=== PATIENT | female | born 2000 | race African-American/Black ===

== ENCOUNTER 2020-07-16 23:08 | Emergency (ER) | payer OTHER ==
[2020-07-16 23:58] LABS: Absolute Lymphocytes (CBC) 0.6 K/uL (0.7-4.9); Basophils % 0.3 % (0-1.3); Lymphocytes % 5.5 % (15.3-44.8); MPV 9.4 fL (7.6-11.3)
[2020-07-17] MEDS ORDERED: NA CHLORIDE 0.9% 1,000 ML ONE (00:04)
[2020-07-17] MEDS ORDERED: LIDOCAINE VISCOUS 2% SOLN 15 ML UDC ONE (00:04)
[2020-07-17] MEDS ORDERED: ONDANSETRON 4 MG/2 ML VIAL ONE (00:04)
[2020-07-17] MEDS ORDERED: MAGNES/ALUMIN/SIMET 30ML UCUP ONE (00:04)
[2020-07-17 00:11] LABS: Albumin 4.3 g/dL (3.4-5.0); Bilirubin Direct 0.2 mg/dL (0-0.2); Bilirubin Total 0.9 mg/dL (0.2-1.0); Protein, Total 8.2 g/dL (6.4-8.2)
[2020-07-17 00:44] LABS: Blood Morphology Comment NOT SEEN (NOT SEEN); Platelet Estimate ADEQ
--- NOTE | 2020-07-17 04:21 | ER ---
Nurse's Notes [facility] Name: Neelima Nix Age: 19 yrs Sex: Female : 2000 Arrival Date: 07/16/2020 Time: 23:12 Bed 4 Private MD: Diagnosis: Generalized abdominal pain Presentation: 07/16 23:15 Chief complaint: Patient states: "I think I have alcohol poisoning, I'm breathing aj1 heavy, I've been throwing up since 1 in the morning, my stomach hurts, I'm shaking really bad" Patient reports that she drank last night and had her last drink at 0040. Coronavirus screen: Client denies travel out of the [place] in the last 14 days. Client presents with at least one sign or symptom that may indicate coronavirus-19. Standard/surgical mask placed on the client. Ebola Screen: Patient denies travel to an Ebola-affected area in the 21 days before illness onset. Initial Sepsis Screen: Does the patient meet any 2 criteria? RR > 20 per min. No. Patient's initial sepsis screen is negative. Does the patient have a suspected source of infection? Yes: Acute abdominal pain. Risk Assessment: Do you want to hurt yourself or someone else? Patient reports no desire to harm self or others. Onset of symptoms was July 16, 2020. 23:15 Method Of Arrival: Ambulatory aj 23:15 Acuity: MACI 3 aj1 Triage Assessment: 23:18 General: Appears in no apparent distress. uncomfortable, Behavior is cooperative, aj1 anxious. Pain: Complains of pain in abdomen. Neuro: Level of Consciousness is awake, alert, obeys commands. Cardiovascular: Patient's skin is warm and dry. Respiratory: Airway is patent Respiratory effort is even, unlabored, Respiratory pattern is regular, symmetrical, tachypnea. GI: Reports nausea, vomiting. 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 - Social history:: Smoking status: Patient denies any tobacco usage or history of. - Family history:: not pertinent. Screenin/02 00:00 Abuse screen: Denies threats or abuse. Denies injuries from another. Nutritional wh screening: No deficits noted. Tuberculosis screening: No symptoms or risk factors identified. Fall Risk None identified. Assessment: 07/16 23:25 General: Appears in no apparent distress. Behavior is calm, cooperative, appropriate wh for age. Pain: Complains of pain in epigastric area. Neuro: Level of Consciousness is awake, alert, obeys commands, Oriented to person, place, time, situation, Appropriate for age. Cardiovascular: Heart tones S1 S2. Respiratory: Airway is patent Respiratory effort is even, unlabored, Respiratory pattern is regular, symmetrical, Breath sounds are clear bilaterally. GI: Abdomen is flat, non-distended, Abd is soft and non tender X 4 quads. Reports upper abdominal pain, nausea. : No signs and/or symptoms were reported regarding the genitourinary system. EENT: No signs and/or symptoms were reported regarding the EENT system. Derm: Skin is intact, is healthy with good turgor, Skin is pink, warm \\T\\ dry. normal. Musculoskeletal: Circulation, motion, and sensation intact. 07/17 01:12 Reassessment: Patient denies pain at this time. Patient states feeling better. Patient mg2 states symptoms have improved. Vital Signs: 07/16 23:15 BP 124 / 65; Pulse 78; Resp 22; Temp 97.8; Pulse Ox 100% on R/A; Weight 58.06 kg (R); aj1 Height 5 ft. 6 in. (167.64 cm) (R); Pain 10/10; 07/17 01:11 BP 122 / 80; Pulse 80; Resp 18; Temp 98; Pulse Ox 100% on R/A; Pain 0/10; mg2 07/16 23:15 Body Mass Index 20.66 (58.06 kg, 167.64 cm) aj1 ED Course: 07/16 23:12 Patient arrived in ED. cf2 23:18 Triage completed. aj1 23:18 Arm band placed on Patient placed in an exam room. aj1 23:20 Sharon Link is Primary Nurse. 23:26 Fam Jaramillo MD is Attending Physician. ma2 23:45 Inserted saline lock: 20 gauge in left antecubital area, using aseptic technique. Blood wh collected. 12/02 00:00 Patient has correct armband on for positive identification. Bed in low position. Call light in reach. Side rails up X 1. Pulse ox on. NIBP on. 01:11 No provider procedures requiring assistance completed. IV discontinued, intact, mg2 bleeding controlled, No redness/swelling at site. Pressure dressing applied. Administered Medications: 00:00 Drug: GI Cocktail without - (Maalox Suspension 30 ml, Lidocaine Liquid 2 % 15 wh ml) Route: PO; 01:12 Follow up: Response: No adverse reaction; Marked relief of symptoms mg2 00:02 Drug: NS 0.9% 1000 ml Route: IV; Rate: 1 bolus; Site: left antecubital; 01:12 Follow up: Response: No adverse reaction; IV Status: Completed infusion; IV Intake: mg2 1000ml 00:04 Drug: Zofran (Ondansetron) 4 mg Route: IVP; Site: left antecubital; 01:12 Follow up: Response: No adverse reaction; Marked relief of symptoms mg2 00:08 Not Given (Physician Discretion): Valium 5 mg IVP once Intake: 01:12 IV: 1000ml; Total: 1000ml. mg2 Outcome: 00:59 Discharge ordered by . [email or web address] 01:12 Discharged to home ambulatory, with family. mg2 01:12 Condition: stable 01:12 Discharge instructions given to patient, family, Instructed on discharge instructions, follow up and referral plans. medication usage, Demonstrated understanding of instructions, follow-up care, medications, Prescriptions given X 1. 01:12 Patient left the ED. mg2 Signatures: Debra Johnson, ISABEL RN mina1 Sharon Link Fam Jaramillo MD MD ma2 Dinesh Lord RN RN [facility] [place] Sarah Beth Cohn2
--- NOTE | 2020-07-17 04:21 | EDPHYS ---
Physician Documentation [facility] Name: Neelima Nix Age: 19 yrs Sex: Female : 2000 Arrival Date: 07/16/2020 Time: 23:12 Bed 4 Private MD: ED Physician Fam Jaramillo HPI: 07/17 00:58 This 19 yrs old Female presents to ER via Ambulatory with complaints of Vomiting, ma2 Abdominal Pain, Breathing Difficulty, SHAKING. 00:58 The patient presents to the emergency department with nausea, vomiting. Associated ma2 signs and symptoms: Pertinent negatives: anorexia, diarrhea, fever, flatulence. Severity of symptoms: At their worst the symptoms were mild in the emergency department the symptoms are unchanged. The patient has not experienced similar symptoms in the past. 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 - Social history:: Smoking status: Patient denies any tobacco usage or history of. - Family history:: not pertinent. ROS: 07/17 00:58 Constitutional: Negative for fever, chills, and weight loss. ma2 All other systems are negative. Exam: 00:58 Constitutional: This is a well developed, well nourished patient who is awake, alert, ma2 and in no acute distress. Chest/axilla: Normal chest wall appearance and motion. Nontender with no deformity. No lesions are appreciated. Cardiovascular: Regular rate and rhythm with a normal S1 and S2. No gallops, murmurs, or rubs. Normal PMI, no JVD. No pulse deficits. Respiratory: Lungs have equal breath sounds bilaterally, clear to auscultation and percussion. No rales, rhonchi or wheezes noted. No increased work of breathing, no retractions or nasal flaring. Abdomen/GI: Soft, non-tender, with normal bowel sounds. No distension or tympany. No guarding or rebound. No evidence of tenderness throughout. Vital Signs: 07/16 23:15 BP 124 / 65; Pulse 78; Resp 22; Temp 97.8; Pulse Ox 100% on R/A; Weight 58.06 kg (R); aj1 Height 5 ft. 6 in. (167.64 cm) (R); Pain 10/10; 07/17 01:11 BP 122 / 80; Pulse 80; Resp 18; Temp 98; Pulse Ox 100% on R/A; Pain 0/10; mg2 07/16 23:15 Body Mass Index 20.66 (58.06 kg, 167.64 cm) aj1 MDM: 07/16 23:26 Patient medically screened. ma2 07/17 00:58 Differential diagnosis: gastritis, pancreatitis, viral gastroenteritis, ma2 gastroenteritis. Data reviewed: vital signs, nurses notes. Counseling: I had a detailed discussion with the patient and/or guardian regarding: the historical points, exam findings, and any diagnostic results supporting the discharge/admit diagnosis, the presence of at least one elevated blood pressure reading (>120/80) during this emergency department visit, the need for outpatient follow up. 07/16 23:33 Order name: IV Saline Lock; Complete Time: 00:09 ma2 07/16 23:33 Order name: Labs collected and sent; Complete Time: 00:09 ak2 Administered Medications: 00:00 Drug: GI Cocktail without - (Maalox Suspension 30 ml, Lidocaine Liquid 2 % 15 wh ml) Route: PO; 01:12 Follow up: Response: No adverse reaction; Marked relief of symptoms mg2 00:02 Drug: NS 0.9% 1000 ml Route: IV; Rate: 1 bolus; Site: left antecubital; 01:12 Follow up: Response: No adverse reaction; IV Status: Completed infusion; IV Intake: mg2 1000ml 00:04 Drug: Zofran (Ondansetron) 4 mg Route: IVP; Site: left antecubital; 01:12 Follow up: Response: No adverse reaction; Marked relief of symptoms mg2 00:08 Not Given (Physician Discretion): Valium 5 mg IVP once Disposition: 07/17/20 00:59 Discharged to Home. Impression: Generalized abdominal pain. - Condition is Stable. - Discharge Instructions: Abdominal Pain, Adult. - Prescriptions for Zofran 4 mg Oral Tablet - take 1 tablet by ORAL route every 12 hours As needed; 20 tablet. - Medication Reconciliation Form, Thank You Letter, Antibiotic Education, Prescription Opioid Use form. - Follow up: Private Physician; When: Tomorrow; Reason: Continuance of care. Signatures: Debra Johnson RN RN aj1 Sharon Link Mohammad, MD MD ma2 Dniesh Lord RN RN mg2 Corrections: (The following items were deleted from the chart) 01:12 00:59 07/17/2020 00:59 Discharged to Home. Impression: Generalized abdominal pain. mg2 Condition is Stable. Forms are Medication Reconciliation Form, Thank You Letter, Antibiotic Education, Prescription Opioid Use. Follow up: Private Physician; When: Tomorrow; Reason: Continuance of care. ma2
== END 2020-07-17 01:12 | disposition home or self-care (01) ==
LOC: ER 23:08
DX: R10.84 Generalized abdominal pain (principal)
CPT/HCPCS: 36415; 80048; 80076; 83690; 85025; 96361; 96374; 99284

== ENCOUNTER 2022-01-19 08:01 | Emergency (ER) | payer BC, OTHER ==
[2022-01-19 08:32] LABS: Urine Blood Negative (Negative); Urine Glucose Negative (Negative); Urine Protein 1+ (Negative); Urine Specific Gravity 1.015 (1.005-1.030); Urine pH >=9.0 (5.0-7.0)
--- OUTSIDE RECORDS SUMMARY | 2022-01-19 08:32 | XMS REPORT | Continuity of Care Document ---
:2000 Author Organization [facility] t Address [address] [place] [address] Care Team Providers Name Role Phone FELIPE Primary Care Physician Unavailable FELIPE Attending Clinician Unavailable Felipe JAMES Attending Clinician Jet Dillard MD Attending Clinician Doctor Unassigned, Name Attending Clinician Unavailable Only, Test Attending Clinician Unavailable Pob, Lab Main Attending Clinician Unavailable FELIPE Admitting Clinician Unavailable Felipe JAMES Admitting Clinician Payers Payer Name Policy Type Policy Number Effective Date Expiration Date S ource [facility] - [id number] 2020 OUT OF STATE 00:00:00 [facility] [id number] 2021 [facility] MEDICAID 00:00:00 [facility] [id number] 2021 HEALTH 00:00:00 [place]ID [place] [id number] 2020 00:00:00 [employer]ET[employer] O [id number] 2019 00:00:00 Problems Condition Condition Condition Status Onset Resolution Last Treating Co mments Source Name Details Category Date Date Treatment Clinician Date Disease Active 2020-08 U nivers care and care and 2- it[place] examin[place] Medical immediatel immediatel Br anch y after y after delivery delivery Liveborn, Liveborn, Disease Active 2020-08 Uni vers born in born in 09-22 ity of [facility] 00:00: [address] Branch Encounter Encounter Disease Active 2020-08 Uni vers for for 2-06 ity of elective elective 00:00: [place] induction induction 00 Medi adalberto of labor of labor Branch Dry skin Dry skin Disease Active Unive rs 9-08 ity of 00:00: [address] Supervisio Supervisio Disease Active U nivers n of high n of high 8-10 ity of risk risk 00:00: [place] 00 Medi adalberto in third in third Branch trimester trimester Screening Screening Disease Active Uni vers for for 6-17 ity of genetic genetic 00:00: [place] disease disease 00 Medical carrier carrier Branch status status Underweigh Underweigh Disease Active U nivers t t 5-23 ity of 00:00: [address] Chlamydia Chlamydia Disease Active Uni vers trachomati trachomati 4-30 it y of s s 00:00: [place] infection infection 00 Medi adalberto of lower of lower Branch genitourin genitourin ruslan sites ruslan sites Missed Missed Disease Active Univers menses menses 4-12 ity of 00:00: [address] Allergies, Adverse Reactions, Alerts Allergy Allergy Status Severity Reaction(s) Onset Inactive Treating Comm ents Source Name Type Date Date Clinician NO KNOWN Drug Active Univers ALLERGIE Class ity of [facility] Social History Social Habit Start Date Stop Date Quantity Comments Source ASSERTION 2020-11-01 University 00:00:00 [facility] Exposure to Not sure [facility] SARS-CoV-2 [facility] (event) [place] Alcohol intake 2021-09-23 2021-09-23 Ex-drinker [facility] 00:00:00 00:00:00 (finding) [facility] Tobacco use and 2020-11-25 2020-11-25 Never used Universit y of exposure 00:00:00 00:00:00 [facility] Sex Assigned At 2000 2000 Universit y of 00:00:00 00:00:00 [facility] Smoking Status Start Date Stop Date Source Never smoker [facility] Medications Ordered Filled Start Stop Current Ordering Indication Dosage Frequency Signature Comments Components Source Medication Medication Date Date Medication? Clinician (SIG) Name Name miSOPROStoL 2021- No [id number] 200ug Take 1 Univers 200 mcg 2-08 02-10 tablet by ity of tablet 00:00: 05:59 mouth 2 [place] 00 :00 (two) Medical times Branch daily for 1 day. Take the night before and the morning of the procedure. COVID-19 2021- No TEST Unive rs test 08-29 DIRECTED ity of specimen 00:00: 00:00 TODAY [place] collect 00 :00 Medical Misc Branch ID NOW 2021- No TEST Univers COVID-19 08-22 DIRECTED ity of TEST KIT 00:00: 00:00 TODAY [place] Kit 00 :00 Medical Branch PNV 67-iron 2020-08 Yes [id number] 1{capsu Take 1 Univers ps-folate 2-08 le} capsule by ity of no.1-dha 00:00: mouth [place] (VITAFOL 00 daily. Medical ULTRA) 29 Branch mg iron- 1 mg-200 mg Cap docusate 2020-08 Yes [id number] 240mg Take 1 Univers calcium 240 2-08 102 capsule by it y of mg capsule 00:00: mouth [place] 00 daily as Medical needed for Branch Constipati on. ferrous 2020-08 Yes [id number] 325mg Take 1 Univers sulfate 325 2-08 102 tablet by ity of mg (65 mg 00:00: mouth [place] iron) 00 daily. Medical tablet Branch ibuprofen 2020-08 Yes [id number] 600mg Take 1 Univers 600 mg 2-08 102 tablet by ity of tablet 00:00: mouth [place] 00 every 6 Medical (six) Branch hours as needed (Pain). Take with food or milk. PNV 67-iron 2020-08 Yes [id number] 1{capsu Take 1 Univers ps-folate 2-08 le} capsule by ity of no.1-dha 00:00: mouth [place] (VITAFOL 00 daily. Medical ULTRA) 29 Branch mg iron- 1 mg-200 mg Cap docusate 2020-08 Yes [id number] 240mg Take 1 Univers calcium 240 2-08 102 capsule by it y of mg capsule 00:00: mouth once [place] 00 daily as Medical needed for Branch Constipati on. ferrous 2020-08 Yes [id number] 325mg Take 1 Univers sulfate 325 2-08 102 tablet by ity of mg (65 mg 00:00: mouth [place] iron) 00 daily. Medical tablet Branch ibuprofen 2020-08 Yes [id number] 600mg Take 1 Univers 600 mg 2-08 102 tablet by ity of tablet 00:00: mouth [place] 00 every 6 Medical (six) Branch hours as needed (Pain). Take with food or milk. PNV 67-iron 2020-08 Yes [id number] 1{capsu Take 1 Univers ps-folate 2-08 le} capsule by ity of no.1-dha 00:00: mouth [place] (VITAFOL 00 daily. Medical ULTRA) 29 Branch mg iron- 1 mg-200 mg Cap docusate 2020-08 Yes [id number] 240mg Take 1 Univers calcium 240 2-08 102 capsule by it y of mg capsule 00:00: mouth once [place] 00 daily as Medical needed for Branch Constipati on. ferrous 2020-08 Yes [id number] 325mg Take 1 Univers sulfate 325 2-08 102 tablet by ity of mg (65 mg 00:00: mouth [place] iron) 00 daily. Medical tablet Branch ibuprofen 2020-08 Yes [id number] 600mg Take 1 Univers 600 mg 2-08 102 tablet by ity of tablet 00:00: mouth [place] 00 every 6 Medical (six) Branch hours as needed (Pain). Take with food or milk. PNV 67-iron 2020-08 Yes [id number] 1{capsu Take 1 Univers ps-folate 2-08 le} capsule by ity of no.1-dha 00:00: mouth [place] (VITAFOL 00 daily. Medical ULTRA) 29 Branch mg iron- 1 mg-200 mg Cap docusate 2020-08 Yes [id number] 240mg Take 1 Univers calcium 240 2-08 102 capsule by it y of mg capsule 00:00: mouth once [place] 00 daily as Medical needed for Branch Constipati on. ferrous 2020-08 Yes [id number] 325mg Take 1 Univers sulfate 325 2-08 102 tablet by ity of mg (65 mg 00:00: mouth [place] iron) 00 daily. Medical tablet Branch ibuprofen 2020-08 Yes [id number] 600mg Take 1 Univers 600 mg 2-08 102 tablet by ity of tablet 00:00: mouth [place] 00 every 6 Medical (six) Branch hours as needed (Pain). Take with food or milk. PNV 67-iron 2020-08 Yes [id number] 1{capsu Take 1 Univers ps-folate 2- le} capsule by ity of no.1-dha 00:00: mouth [place] (VITAFOL 00 daily. Medical ULTRA) 29 Branch mg iron- 1 mg-200 mg Cap ibuprofen 2020-08 Yes [id number] 600mg Take 1 Univers 600 mg 2-08 102 tablet by ity of tablet 00:00: mouth [place] 00 every 6 Medical (six) Branch hours as needed (Pain). Take with food or milk. docusate 2020-08- No [id number] 240mg Take 1 Univers calcium 240 09-23 102 capsule by i ty of mg capsule 00:00: 00:00 mouth once [place] 00 :00 daily as Medical needed for Branch Constipati on. ferrous 2020-08- No [id number] 325mg Take 1 Univers sulfate 325 09-23 102 tablet by it y of mg (65 mg 00:00: 00:00 mouth [place] iron) 00 :00 daily. Medical tablet Branch rho(D) 2020-08 Yes 300ug 300 mcg, Univer s immune 2-07 Intramuscu ity of globulin 09:37: lar, ONCE, Ayaz as (RHOGAM) 03 For 1 Medical syringe 300 dose, Branch mcg Conditiona l, Routine HYDROcodone 2020-08 Yes 1{tbl} 1 tablet, Univers -acetaminop 2-07 Oral, ity of hen (NORCO 09:36: Q6HPRN, [place] 5) 5-325 mg 15 Starting Medi adalberto tablet 1 on Wed [place] tablet 07/22/21 at 0336, Until Discontinu ed, Routine, Pain (scale 7-10) ibuprofen 2020-08 Yes 600mg 600 mg, Univ ers (IBU) 2-07 Oral, ity of tablet 600 09:36: Q6HPRN, [place] mg 15 Starting Medical on Wed Branch 07/22/21 at 0336, Until Discontinu ed, Routine, Pain (scale 4-6) acetaminoph 2020-08 Yes 650mg 650 mg, Un tarah en 2-07 Oral, ity of (TYLENOL) 09:36: Q6HPRN, [place] tablet 650 15 Starting Medic al mg on Wed Branch 07/22/21 at 0336, Until Discontinu ed, Routine, Pain (scale 1-3) diphenhydrA 2020-08 Yes 25mg 25 mg, Univ ers MINE 2-07 Oral, ity of (BENADRYL) 09:36: Q6HPRN, [place] tablet 25 15 Starting Medica l mg on Wed Branch 07/22/21 at 0336, Until Discontinu ed, Routine, Sleep, Itching ondansetron 2020-08 Yes 4mg 4 mg, Slow Univers (ZOFRAN 2-07 IV Push, ity of (PF)) 09:36: Q8HPRN, [place] injection 4 15 Starting Medi adalberto mg on Wed Branch 07/22/21 at 0336, Until Discontinu ed, Routine, Nausea and Vomiting (N/V) simethicone 2020-08 Yes 160mg 160 mg, Un [place] (GAS RELIEF 2-07 Oral, ity of (SIMETHICON 09:36: PC+HSPRN, [place] E)) 15 Starting Medical chewable on Wed tablet 160 07/22/21 at mg 0336, Until Discontinu ed, Routine, Gas docusate 2020-08 Yes 240mg 240 mg, Unive rs calcium 2-07 Oral, ity of (SURFAK) 09:36: QDAILYPRN, [place] as capsule 240 15 Starting Medi adalberto mg on Wed07/22/21 at 0336, Until Discontinu ed, Routine, Constipati on magnesium 2020-08 Yes 30mL 30 mL, Univer s hydroxide 2-07 Oral, ity of (MILK OF 09:36: QDAILYPRN, [place] as MAGNESIA) 15 Starting Medica l 400 mg/5 mL on Wed suspension 07/22/21 at 30 mL 0336, Until Discontinu ed, Routine, Constipati on benzocaine- 2020-08 Yes Topical, [place] menthol 2-07 PRN, ity of (DERMOPLAST 09:36: [place] 20-0.5 % 14 on Wed Medical topical 07/22/21 at Branch spray 0336, Until Discontinu ed, Routine, Perineum discomfort FENTanyl 2 2020-08- No Intra-op Un tarah mcg/mL + 2-07 12-07 ity of bupivacaine 06:14: 13:14 [place] 0.125% in 00 :24 Medical NS 250 mL Branch epidural bag FENTanyl 2 2020-08- No Intra-op [place] tar[place] mcg/mL + 09-22 ity of bupivacaine 06:02: 13:14 [place] 0.125% in 00 :24 Medical NS 250 mL Branch epidural bag lidocaine-e 2020-08- No Intraderma Univers pinephrine 09-22 l, ONCE ity o f (XYLOCAINE 05:58: 13:14 INTRA [place] W/EPINEPHRI 00 :24 PROCEDURE, [place]) 1.5 Starting Branch %-1:200,000 on Wed injection 07/21/21 at 2358, Until Wed07/22/21 at 0714, Routine, Intra-op FENTanyl PF 2020-08- No 100ug 100 mcg, Univers (SUBLIMAZE 09-22 Slow IV ity o f (PF)) 00:19: 09:37 Push, [place] injection 02 :04 Q1HPRN, 3 Medic al 100 mcg doses, Branch Starting on Wed07/21/21 at 1819, Until Wed07/22/21 at 0337, Routine, Pain (scale 7-10) LR 1000 mL 2020-08- No 2mU/min at 6-120 Univers + oxytocin 09-22 mL/hr, IV ity of 20 units IV 00:10: 09:37 Infusion, [place] Solution 44 :04 TITRATE, Medical Starting Branch on Wed07/21/21 at 1810, Until Wed07/22/21 at 0337, IVY D5W-LR IV 2020-08- No 1000mL at 125 Uni vers infusion 09-2107 mL/hr, IV ity o f 1,000 mL 23:30: 09:37 Infusion, Ayaz as 00 :04 CONTINUOUS Medical , Starting Branch on Wed07/21/21 at 1730, Until Wed07/22/21 at 0337, Routine lactated 2020-08- No 500mL at 999 Unive rs ringers IV 09-21-07 mL/hr, 500 it y of infusion 23:22: 09:37 mL, IV [place] 500 mL 17 :04 Infusion, Medical PRN - SEE Branch INSTRUCTIO NS, Starting on Wed07/21/21 at 1722, Until Wed21 at 0337, Routine PNV 67-iron 2020-08 Yes [id number] 1{capsu Take 1 Univers ps-folate 0-06 le} capsule by ity of no.1-dha 00:00: mouth [place] (VITAFOL 00 daily. Medical ULTRA) 29 Branch mg iron- 1 mg-200 mg Cap PNV 67-iron 2020-08 Yes [id number] 1{capsu Take 1 Univers ps-folate 0-06 le} capsule by ity of no.1-dha 00:00: mouth [place] (VITAFOL 00 daily. Medical ULTRA) 29 Branch mg iron- 1 mg-200 mg Cap PNV 67-iron 2020-08 Yes [id number] 1{capsu Take 1 Univers ps-folate 0-06 le} capsule by ity of no.1-dha 00:00: mouth [place] (VITAFOL 00 daily. Medical ULTRA) 29 Branch mg iron- 1 mg-200 mg Cap PNV 67-iron 2020-08 Yes [id number] 1{capsu Take 1 Univers ps-folate 0-06 le} capsule by ity of no.1-dha 00:00: mouth [place] (VITAFOL 00 daily. Medical ULTRA) 29 Branch mg iron- 1 mg-200 mg Cap PNV 67-iron 2020-08 Yes [id number] 1{capsu Take 1 Univers ps-folate 0-06 le} capsule by ity of no.1-dha 00:00: mouth [place] (VITAFOL 00 daily. Medical ULTRA) 29 Branch mg iron- 1 mg-200 mg Cap PNV 67-iron 2020-08 Yes [id number] 1{capsu Take 1 Univers ps-folate 0-06 le} capsule by ity of no.1-dha 00:00: mouth [place] (VITAFOL 00 daily. Medical ULTRA) 29 Branch mg iron- 1 mg-200 mg Cap PNV 67-iron 2020-08 Yes [id number] 1{capsu Take 1 Univers ps-folate 0-06 le} capsule by ity of no.1-dha 00:00: mouth [place] (VITAFOL 00 daily. Medical ULTRA) 29 Branch mg iron- 1 mg-200 mg Cap PNV 67-iron 2020-08 Yes [id number] 1{capsu Take 1 Univers ps-folate 0-06 le} capsule by ity of no.1-dha 00:00: mouth [place] (VITAFOL 00 daily. Medical ULTRA) 29 Branch mg iron- 1 mg-200 mg Cap PNV 67-iron 2020-08 Yes [id number] 1{capsu Take 1 Univers ps-folate 0-06 le} capsule by ity of no.1-dha 00:00: mouth [place] (VITAFOL 00 daily. Medical ULTRA) 29 Branch mg iron- 1 mg-200 mg Cap PNV 67-iron 2020-08 Yes [id number] 1{capsu Take 1 Univers ps-folate 0-06 le} capsule by ity of no.1-dha 00:00: mouth [place] (VITAFOL 00 daily. Medical ULTRA) 29 Branch mg iron- 1 mg-200 mg Cap PNV 67-iron 2020-08 Yes [id number] 1{capsu Take 1 Univers ps-folate 0-06 le} capsule by ity of no.1-dha 00:00: mouth [place] (VITAFOL 00 daily. Medical ULTRA) 29 Branch mg iron- 1 mg-200 mg Cap PNV 67-iron 2020-08 Yes [id number] 1{capsu Take 1 Univers ps-folate 0-06 le} capsule by ity of no.1-dha 00:00: mouth [place] (VITAFOL 00 daily. Medical ULTRA) 29 Branch mg iron- 1 mg-200 mg Cap PNV 67-iron 2020-08 Yes [id number] 1{capsu Take 1 Univers ps-folate 0-06 le} capsule by ity of no.1-dha 00:00: mouth [place] (VITAFOL 00 daily. Medical ULTRA) 29 Branch mg iron- 1 mg-200 mg Cap PNV 67-iron 2020-08 Yes [id number] 1{capsu Take 1 Univers ps-folate 0-06 le} capsule by ity of no.1-dha 00:00: mouth [place] (VITAFOL 00 daily. Medical ULTRA) 29 Branch mg iron- 1 mg-200 mg Cap PNV 67-iron 2020-08 Yes [id number] 1{capsu Take 1 Univers ps-folate 0-06 le} capsule by ity of no.1-dha 00:00: mouth [place] (VITAFOL 00 daily. Medical ULTRA) 29 Branch mg iron- 1 mg-200 mg Cap PNV 67-iron 2020-08 202- No [id number] 1{capsu Take 1 Univers ps-folate 0-06 12-08 le} capsule by ity of no.1-dha 00:00: 00:00 mouth [place] (VITAFOL 00 :00 daily. Medical ULTRA) 29 Branch mg iron- 1 mg-200 mg Cap lanolin Yes [id number] 1{appli Apply 1 Univers % Crea 9-07 cator} Applicator ity o f 00:00: to area(s) [place] 00 2 (two) Medical times Branch daily. lanolin Yes [id number] 1{appli Apply 1 Univers % Crea 9-07 cator} Applicator ity o f 00:00: to area(s) [place] 00 2 (two) Medical times Branch daily. lanolin Yes [id number] 1{appli Apply 1 Univers % Crea 9-07 cator} Applicator ity o f 00:00: to area(s) [place] 00 2 (two) Medical times Branch daily. lanolin Yes [id number] 1{appli Apply 1 Univers % Crea 9-07 cator} Applicator ity o f 00:00: to area(s) [place] 00 2 (two) Medical times Branch daily. VITAFOL Yes 1{capsu Take 1 Unive rs ULTRA 29 mg 9-07 le} capsule by it y of iron- 1 00:00: mouth [place] mg-200 mg 00 daily. Medical Cap Branch lanolin Yes [id number] 1{appli Apply 1 Univers % Crea 9-07 cator} Applicator ity o f 00:00: to area(s) [place] 00 2 (two) Medical times Branch daily. VITAFOL Yes 1{capsu Take 1 Unive rs ULTRA 29 mg 9-07 le} capsule by it y of iron- 1 00:00: mouth [place] mg-200 mg 00 daily. Medical Cap Branch lanolin Yes [id number] 1{appli Apply 1 Univers % Crea 9-07 cator} Applicator ity o f 00:00: to area(s) [place] 00 2 (two) Medical times Branch daily. lanolin Yes [id number] 1{appli Apply 1 Univers % Crea 9-07 cator} Applicator ity o f 00:00: to area(s) [place] 00 2 (two) Medical times Branch daily. lanolin Yes [id number] 1{appli Apply 1 Univers % Crea 9-07 cator} Applicator ity o f 00:00: to area(s) [place] 00 2 (two) Medical times Branch daily. lanolin Yes [id number] 1{appli Apply 1 Univers % Crea 9-07 cator} Applicator ity o f 00:00: to area(s) [place] 00 2 (two) Medical times Branch daily. lanolin Yes [id number] 1{appli Apply 1 Univers % Crea 9-07 cator} Applicator ity o f 00:00: to area(s) [place] 00 2 (two) Medical times Branch daily. lanolin 2020- No [id number] 1{appli Apply 1 Univers % Crea 9-07 11-18 cator} Applicator ity of 00:00: 00:00 to area(s) [place] 00 :00 2 (two) Medical times Branch daily. VITAFOL 2020- No 1{capsu Take 1 Univ ers ULTRA 29 mg 9-07 10-06 le} capsule by i ty of iron- 1 00:00: 00:00 mouth [place] mg-200 mg 00 :00 daily. Medical Cap Branch Yes [id number] 1{capsu Take 1 Univers 26-iron 8-10 le} capsule by ity of ps-folic-dh 00:00: mouth [place] a 00 daily. Medical (VITAFOL-ON Branch E) 29 mg iron- 1 mg-200 mg per capsule Yes [id number] 1{capsu Take 1 Univers 26-iron 8-10 le} capsule by ity of ps-folic-dh 00:00: mouth [place] a 00 daily. Medical (VITAFOL-ON Branch E) 29 mg iron- 1 mg-200 mg per capsule Yes [id number] 1{capsu Take 1 Univers 26-iron 8-10 le} capsule by ity of ps-folic-dh 00:00: mouth [place] a 00 daily. Medical (VITAFOL-ON Branch E) 29 mg iron- 1 mg-200 mg per capsule 2020- No [id number] 1{capsu Take 1 Univers 26-iron 03-25 le} capsule by sanjeev simpson ps-folic-dh 00:00: 00:00 [place] a 00 :00 daily. Medical (VITAFOL-ON Branch E) 29 mg iron- 1 mg-200 mg per capsule VITAFOL 2020- No 1{capsu Take 1 Univ ers ULTRA 29 mg 03-25 le} capsule by aleksandra ty of iron- 1 00:00: 00:00 mouth [place] mg-200 mg 00 :00 daily. Medical [facility] Branch Immunizations Ordered Filled Immunization Date Status Comments [facility] e Immunization Name Name TD 2021-05-19 Completed University of 00:00:00 [facility] TDAP 2021-05-19 Completed University of 00:00:00 [facility] TDAP 2021-05-19 Completed University of 00:00:00 [facility] Branch TDAP 2021-05-19 Completed University of 00:00:00 [facility] Branch TDAP 2021-05-19 Completed University of 00:00:00 [place] [facility] TDAP 2021-05-19 Completed University of 00:00:00 [facility] Branch TDAP 2021-05-19 Completed University of 00:00:00 [facility] Branch TDAP 2021-05-19 Completed University of 00:00:00 [facility] Branch TDAP 2021-05-19 Completed University of 00:00:00 [place] [facility] TDAP 2021-05-19 Completed University of 00:00:00 [place] [facility] TDAP 2021-05-19 Completed University of 00:00:00 [facility] Branch TDAP 2021-05-19 Completed University of 00:00:00 [place] [facility] TDAP 2021-05-19 Completed University of 00:00:00 [place] [facility] TDAP 2021-05-19 Completed University of 00:00:00 [facility] Branch TDAP 2021-05-19 Completed University of 00:00:00 [facility] Branch TDAP 2021-05-19 Completed University of 00:00:00 [place] [facility] TDAP 2021-05-19 Completed University of 00:00:00 [facility] TDAP 2021-05-19 Completed University of 00:00:00 [place] [facility] TDAP 2021-05-19 Completed University of 00:00:00 [place] [facility] TDAP 2021-05-19 Completed University of 00:00:00 [place] [facility] TDAP 2021-05-19 Completed University of 00:00:00 [facility] Branch Vital Signs Vital Name Observation Time Observation Value Comments Source Systolic blood 2021-09-23 14:23:00 125 mm[Hg] Univer sity of pressure [place] [facility] Diastolic blood 2021-09-23 14:23:00 76 mm[Hg] Unive rsity of pressure [place] [facility] Heart rate 2021-09-23 14:23:00 67 /min Universi ty of [place] [facility] Body temperature 2021-09-23 14:23:00 36.89 Frieda Univ ersity of [place] [facility] Respiratory rate 2021-09-23 14:23:00 18 /min Univ ersity of [place] [facility] Body height 2021-09-23 14:23:00 167.6 cm Universi ty of [place] [facility] Body weight 2021-09-23 14:23:00 77.14 kg Universi ty of [place] [facility] BMI 2021-09-23 14:23:00 27.45 kg/m2 Universi ty of [place] [facility] Systolic blood 2021-08-04 19:59:00 113 mm[Hg] Univer sity of pressure [place] [facility] Diastolic blood 2021-08-04 19:59:00 77 mm[Hg] Unive rsity of pressure [place] [facility] Heart rate 2021-08-04 19:59:00 90 /min Universi ty of [place] [facility] Body temperature 2021-08-04 19:59:00 37.11 Frieda Univ ersity of [place] [facility] Respiratory rate 2021-08-04 19:59:00 18 /min Univ ersity of [place] [facility] Body height 2021-08-04 19:59:00 167.6 cm Universi ty of [place] [facility] Body weight 2021-08-04 19:59:00 76.386 kg Universi ty of [place] [facility] BMI 2021-08-04 19:59:00 27.18 kg/m2 Universi ty of [place] [facility] Systolic blood 2021-07-23 19:15:00 121 mm[Hg] Univer sity of pressure [place] [facility] Diastolic blood 2021-07-23 19:15:00 75 mm[Hg] Unive rsity of pressure [place] [facility] Heart rate 2021-07-23 19:15:00 106 /min Universi ty [facility] [place] [facility] Body temperature 2021-07-23 19:15:00 37.11 Frieda Univ ersity of [facility] Branch Respiratory rate 2021-07-23 19:15:00 20 /min Univ ersity of [facility] Oxygen saturation in 2021-07-23 13:45:00 99 /min University of Arterial blood by [facility] Pulse oximetry Branch Body height 2021-07-21 23:35:00 167.6 cm Universi ty of [place] [facility] Body weight 2021-07-21 23:35:00 84.823 kg Universi ty of [place] [facility] BMI 2021-07-21 23:35:00 30.18 kg/m2 Universi ty of [facility] Systolic blood 2021-07-17 21:30:00 132 mm[Hg] Univer sity of pressure [place] [facility] Diastolic blood 2021-07-17 21:30:00 81 mm[Hg] Unive rsity of pressure [place] [facility] Heart rate 2021-07-17 21:30:00 78 /min Universi ty of [place] [facility] Body temperature 2021-07-17 21:30:00 37.28 Frieda Univ ersity of [place] [facility] Respiratory rate 2021-07-17 21:30:00 18 /min Univ ersity of [facility] Body height 2021-07-17 21:30:00 167.6 cm Universi ty [facility] [place] [facility] Body weight 2021-07-17 21:30:00 85.872 kg Universi ty of [place] [facility] BMI 2021-07-17 21:30:00 30.56 kg/m2 Universi ty of [place] [facility] Systolic blood 2021-07-08 21:59:00 112 mm[Hg] Univer sity of pressure [place] [facility] Diastolic blood 2021-07-08 21:59:00 69 mm[Hg] Unive rsity of pressure [place] [facility] Heart rate 2021-07-08 21:59:00 68 /min Universi ty of [place] [facility] Body temperature 2021-07-08 21:59:00 36.94 Frieda Univ ersity of [place] [facility] Respiratory rate 2021-07-08 21:59:00 18 /min Univ ersity of [place] [facility] Body height 2021-07-08 21:59:00 167.6 cm Universi ty of [place] [facility] Body weight 2021-07-08 21:59:00 82.645 kg Universi ty of [place] [facility] BMI 2021-07-08 21:59:00 29.41 kg/m2 Universi ty [facility] [place] [facility] Systolic blood 2021-07-03 21:49:00 122 mm[Hg] Univer sity of pressure [place] [facility] Diastolic blood 2021-07-03 21:49:00 75 mm[Hg] Unive rsity of pressure [place] [facility] Heart rate 2021-07-03 21:49:00 74 /min Universi ty of [place] [facility] Body temperature 2021-07-03 21:49:00 36.78 Frieda Univ ersity of [place] [facility] Respiratory rate 2021-07-03 21:49:00 18 /min Univ ersity of [place] [facility] Body height 2021-07-03 21:49:00 167.6 cm Universi ty of [place] [facility] Body weight 2021-07-03 21:49:00 83.099 kg Universi ty of [place] [facility] BMI 2021-07-03 21:49:00 29.57 kg/m2 [facility]i ty [facility] [place] [facility] Systolic blood 2021-06-24 15:29:00 127 mm[Hg] Univer sity of pressure [place] [facility] Diastolic blood 2021-06-24 15:29:00 71 mm[Hg] Unive rsity of pressure [place] [facility] Heart rate 2021-06-24 15:28:00 100 /min Universi ty of [place] [facility] Body temperature 2021-06-24 15:28:00 36.94 Frieda Univ ersity of [place] [facility] Respiratory rate 2021-06-24 15:28:00 18 /min Univ ersity of [place] [facility] Body height 2021-06-24 15:28:00 167.6 cm Universi ty [facility] [place] [facility] Body weight 2021-06-24 15:28:00 82.328 kg [facility] BMI 2021-06-24 15:28:00 29.29 kg/m2 [facility] Oxygen saturation in 2021-06-24 15:28:00 98 /min [facility] [place] [facility] P[facility] oxim[facility] Systolic blood 2021-06-18 16:24:00 127 mm[Hg] [facility] Diastolic blood 2021-06-18 16:24:00 71 mm[Hg] [facility] Heart rate 2021-06-18 16:24:00 92 /min [facility] Body temperature 2021-06-18 16:24:00 37.33 Frieda [facility] Respiratory rate 2021-06-18 16:24:00 19 /min [facility] Body height 2021-06-18 16:24:00 167.6 cm [facility] Body weight 2021-06-18 16:24:00 82.214 kg [facility] BMI 2021-06-18 16:24:00 29.25 kg/m2 [facility] Oxygen saturation in 2021-06-18 16:24:00 99 /min [facility] [place] [facility] Systolic blood 2021-06-02 18:53:00 126 mm[Hg] [facility] Diastolic blood 2021-06-02 18:53:00 77 mm[Hg] [facility] Heart rate 2021-06-02 18:53:00 81 /min [facility] Respiratory rate 2021-06-02 18:53:00 19 /min [facility] Body height 2021-06-02 18:53:00 167.6 cm [facility] Body weight 2021-06-02 18:53:00 81.818 kg [facility] BMI 2021-06-02 18:53:00 29.11 kg/m2 [facility] Oxygen saturation in 2021-06-02 18:53:00 98 /min [facility] [place] [facility] Systolic blood 2021-05-19 18:44:00 114 mm[Hg] [facility] Diastolic blood 2021-05-19 18:44:00 73 mm[Hg] [facility] Heart rate 2021-05-19 18:44:00 95 /min [facility] Body temperature 2021-05-19 18:44:00 36.78 Frieda [facility] Respiratory rate 2021-05-19 18:44:00 18 /min [facility] Body height 2021-05-19 18:44:00 167.6 cm [facility] Body weight 2021-05-19 18:44:00 79.011 kg [facility] BMI 2021-05-19 18:44:00 28.11 kg/m2 [facility] Oxygen saturation in 2021-05-19 18:44:00 98 /min University Arterial blood by [facility] Pulse oximetry Branch Systolic blood 2021-05-05 18:29:00 125 mm[Hg] [facility] Diastolic blood 2021-05-05 18:29:00 76 mm[Hg] [facility] Heart rate 2021-05-05 18:29:00 81 /min [facility] Body temperature 2021-05-05 18:29:00 37.17 Frieda [facility] Respiratory rate 2021-05-05 18:29:00 18 /min [facility] Body height 2021-05-05 18:29:00 167.6 cm [facility] Body weight 2021-05-05 18:29:00 77.928 kg [facility] BMI 2021-05-05 18:29:00 27.73 kg/m2 [facility] Systolic blood 2021-04-22 15:33:00 132 mm[Hg] [facility] Diastolic blood 2021-04-22 15:33:00 76 mm[Hg] [facility] Heart rate 2021-04-22 15:33:00 89 /min [facility] Respiratory rate 2021-04-22 15:33:00 18 /min [facility] Body height 2021-04-22 15:33:00 167.6 cm [facility] Body weight 2021-04-22 15:33:00 76.771 kg [facility] BMI 2021-04-22 15:33:00 27.32 kg/m2 [facility] Oxygen saturation in 2021-04-22 15:33:00 98 /min [facility] Arterial blood by [facility] Pulse oximetry Branch Procedures Procedure Date / Time Performing Clinician Source Performed CBC WITH DIFF 2021-07-23 09:42:00 Fish, [facility] CENTRAL NEURAXIAL BLOCK 2021-07-22 06:04:56 Garrett Dillard [facility] CBC WITH DIFF 2021-07-21 23:59:00 Fish, [facility] HEPATITIS B SURFACE 2021-07-21 23:59:00 Fish, [facility] ANTIGEN [facility] ADC OR SHWETHA ONLY - 2021-07-21 23:59:00 [facility] HIV 1/2 AG-AB WITH 2021-07-21 23:59:00 Fish, [facility] REFLEX [facility] HB ABO GROUPING 2021-07-21 23:55:00 [facility], [facility] RHO (D) IMMUNE GLOBULIN 2021-07-21 23:55:00 [facility], [facility] HOSPITAL ADMISSION 2021-07-21 06:01:00 Doctor Unassigned, No [facility] FOR 2021-07-18 19:32:30 [facility] ASSIGNMENT OF BENEFITS 2021-07-18 19:31:56 Doctor Unassigned, No General acute hospital ASSIGNMENT OF BENEFITS 2021-07-18 19:17:37 Doctor Unassigned, No General acute hospital DME/SUPPLY JUSTIFICATION 2021-07-14 06:01:00 Doctor Unassigned, No General acute hospital POCT URINALYSIS W/O 2021-07-03 21:50:00 Fish, [facility] SPECIFIC GRAVITY [facility] DME/SUPPLY JUSTIFICATION 2021-06-26 06:01:00 Doctor Unassigned, No General acute hospital POCT URINALYSIS W/O 2021-06-24 15:31:00 Kenneth Wood [facility] POCT URINALYSIS W/O 2021-06-18 16:27:00 Kenneth Wood [facility] POCT URINALYSIS W/O 2021-06-02 18:55:00 Kenneth Wood [facility] TDAP VACCINE, >11 YRS, 2021-05-19 19:11:46 [facility] POCT URINALYSIS W/O 2021-05-19 18:47:00 Kenneth Wood [facility] ASSIGNMENT OF BENEFITS 2021-05-06 15:26:04 Doctor Unassigned, No General acute hospital POCT URINALYSIS W/O 2021-05-05 18:30:00 Kenneth Wood [facility] POCT URINALYSIS W/O 2021-04-22 15:36:00 Kenneth Wood [facility] Encounters Start End Encounter Admission Attending Care Care Encounter Source Date/Time Date/Time Type Type Clinicians Facility Department ID 2021-10-17 2021-10-17 Outpatient R KENNETH WOOD [facility] [id number] Univers 14:45:00 14:45:00 [id number] [facility] 2021-10-17 2021-10-17 Outpatient R KENNETH WOOD [facility] [id number] Univers 14:45:00 14:45:00 [facility] 2021-09-30 2021-09-30 Outpatient R KENNETH WOOD [facility] [id number] Univers 13:30:00 13:30:00 [id number] [facility] 2021-09-30 2021-09-30 Outpatient R KENNETH WOOD [facility] [id number] Univers 13:30:00 13:30:00 [facility] 2021-09-23 2021-09-23 Outpatient R KENNETH WOOD [facility] [id number] Univers 08:15:00 08:52:13 [facility] 2021-09-23 2021-09-[address] [facility] [place] 1.2.840.114 [id number] Univers 08:15:00 08:52:13 MESSI 350.1.13.10 i ty of Visit WOMEN'S 4.2.7.2.686 [facility] [id number] [address] 2021-09-23 2021-09-23 Outpatient R FISHKENNETH [facility] [id number] Univers 08:15:00 08:15:00 [id number] ity [facility] 2021-09-22 2021-09-22 Outpatient R FISHKENNTEH [facility] [id number] Univers 13:45:00 13:45:00 [id number] ity [facility] 2021-08-25 2021-08-25 Outpatient R KENNETH WOOD [facility] [id number] Univers 16:15:00 16:15:00 [id number] ity [facility] 2021-08-25 2021-08-25 Outpatient R FISHKENNETH [facility] [id number] Univers 16:15:00 16:15:00 ity [facility] 2021-08-04 2021-08-04 Outpatient R KENNETH WOOD [facility] [id number] Univers 13:30:00 14:17:44 ity [facility] 2021-08-04 2021-08-04 Routine FishKenneth [facility] 1.2.840.114 [id number] Univers 13:30:00 14:17:44 MESSI 350.1.13.10 i ty of Visit WOMEN'S 4.2.7.2.686 [facility] [id number] [address] 2021-08-04 2021-08-04 Outpatient R KENNETH WOOD [facility] [id number] Univers 13:30:00 13:30:00 [id number] ity [facility] 2021-07-24 2021-07-24 Telephone FishKenneth [facility] 1.2.840.11 [id number] Univers 00:00:00 00:00:00 MESSI 350.1.13.10 it y of WOMEN'S 4.2.7.2.686 [facility] [id number] [facility] 134 Branch 2021-07-21 2021-07-23 Inpatient P KENNETH WOOD [facility] [place] [id number] Univers 17:00:00 15:40:00 ity of [facility] 2021-07-21 2021-07-23 Hospital Kenneth Wood [facility] 1.2.840.114 [id number] Univers 17:00:00 15:40:00 Encounter TAMIKA 350.1.13.10 ity of [facility] 4.2.7.2.686 [facility] [id number] [facility] 083 Branch 2021-07-21 2021-07-22 Anesthesia Dillard, [facility] 1.2.840.114 [id number] Univers 23:53:00 07:08:00 Event Garrett LUNDBERG 350.1.13.10 ity of [place] 4.2.7.2.686 [facility] [id number] [facility] [address] [place] 2021-07-21 2021-07-21 Anesthesia Dillard, [facility] 1.2.840.114 [id number] Univers 21:00:27 21:00:27 Event Garrett LUNDBERG 350.1.13.10 ity of [facility] 4.2.7.2.686 [facility] [id number] [facility] 083 Branch 2021-07-21 2021-07-21 Orders Doctor ANIBAL 1.2.840.114 [id number] Univers 00:00:00 00:00:00 Only Unassigned, DAVEY 350.1.13.10 ity of [place] [facility] 4.2.7.2.686 Ayaz as [id number] [facility] 009 Branch 2021-07-18 2021-07-18 Laboratory Only, Adc Test [facility] 1.2.840. 114 [id number] Univers 13:18:48 13:33:48 Only Kenneth Wood 350.1.13.10 ity of [facility] 4.2.7.2.686 [facility] s [place] [id number] [facility] 353 Branch 2021-07-18 2021-07-18 Outpatient R [facility] [id number] Univers 13:15:00 13:15:00 [id number] ity of [facility] 2021-07-18 2021-07-18 Outpatient R KENNETH WOOD [facility] [id number] Univers 13:15:00 13:15:00 ity of [facility] 2021-07-18 2021-07-18 Orders Doctor ANIBAL 1.2.840.114 [id number] Univers 00:00:00 00:00:00 Only Unassigned, DAVEY 350.1.13.10 ity of [place] [facility] 4.2.7.2.686 Ayaz as [id number] [address] 2021-07-17 2021-07-17 Outpatient R KENNETH WOOD [facility] [id number] Univers 15:30:00 15:54:49 ity of [facility] 2021-07-17 2021-07-17 Routine Kenneth Wood [facility] 1.2.840.114 [id number] Univers 15:13:26 15:54:49 MESSI 350.1.13.10 i [place]2.[place] [facility] [id number] [address] 2021-07-17 2021-07-17 Outpatient R KENNETH WOOD [facility] [id number] Univers 15:30:00 15:30:00 [id number] ity [facility] 2021-07-14 2021-07-14 Telephone Kenneth Wood [facility] 1.2.840.11 [id number] Univers 00:00:00 00:00:00 MESSI 350.1.13.10 it [facility] [place] [place] [facility] [id number] [address] 2021-07-14 2021-07-14 Orders Doctor ANIBAL 1.2.840.114 [id number] Univers 00:00:00 00:00:00 Only Unassigned, DAVEY 350.1.13.10 ity of [place] [facility] 4.2.7.2.686 Ayaz as [id number] [address] 2021-07-08 2021-07-08 Routine FishKenneth [facility] 1.2.840.114 [id number] Univers 15:16:42 16:14:36 MESSI 350.1.13.10 i ty [place]2.[place] [facility] [id number] [address] 2021-07-08 2021-07-08 Outpatient R KENNETH WOOD [facility] [id number] Univers 15:15:00 16:14:36 ity [facility] 2021-07-08 2021-07-08 Outpatient R KENNETH WOOD [facility] [id number] Univers 15:15:00 15:15:00 [id number] ity [facility] 2021-07-03 2021-07-03 Routine Kenneth Wood [facility] 1.2.840.114 [id number] Univers 14:59:33 16:06:04 MESSI 350.1.13.10 i ty [place]2.[place] [facility] [id number] [address] 2021-07-03 2021-07-03 Outpatient R KENNETH WOOD [facility] [id number] Univers 14:45:00 16:06:04 ity of [facility] 2021-07-03 2021-07-03 Outpatient R KENNETH WOOD [facility] [id number] Univers 14:45:00 14:45:00 [id number] ity [facility] 2021-06-26 2021-06-26 Orders Doctor ANIBAL 1.2.840.114 [id number] Univers 00:00:00 00:00:00 Only Unassigned, DAVEY 350.1.13.10 ity of [place] [facility] 4.2.7.2.686 Ayaz as [id number] [address] 2021-06-24 2021-06-24 Routine Kenneth Wood [facility] KATHRYN 1.2.840.114 [id number] Univers 09:23:01 10:01:58 MESSI 350.1.13.10 i ty [place] [facility] [id number] [address] 2021-06-24 2021-06-24 Outpatient R KENNETH WOOD [facility] [id number] Univers 09:15:00 10:01:58 ity [facility] 2021-06-24 2021-06-24 Outpatient R KENNETH WOOD [facility] [id number] Univers 09:15:00 09:15:00 [id number] ity [facility] 2021-06-19 2021-06-19 Telephone Kenneth Wood 1.2.840.11 [id number] Univers 00:00:00 00:00:00 MESSI 350.1.13.10 it [place] [place] [facility] [id number] [address] 2021-06-18 2021-06-18 Outpatient R KENNETH WOOD [facility] [id number] Univers 11:00:00 11:50:06 ity [facility] 2021-06-18 2021-06-18 Routine Kenneth Wood [facility] [place] 1.2.840.114 [id number] Univers 10:59:05 11:50:06 MESSI 350.1.13.10 i ty [place] [place].2.[place] [facility] [id number] [address] 2021-06-18 2021-06-18 Outpatient R KENENTH WOOD [facility] [id number] Univers 11:00:00 11:00:00 [id number] ity [facility] 2021-06-16 2021-06-16 Outpatient R KENNETH WOOD [facility] [id number] Univers 11:00:00 11:00:00 [id number] [facility] 2021-06-16 2021-06-16 Outpatient R KENNETH WOOD [facility] [id number] Univers 11:00:00 11:00:00 [facility] 2021-06-02 2021-06-02 Routine Kenneth Wood 1.2.840.114 [id number] Univers 13:45:41 14:03:35 Messi 350.1.13.10 i ty of Visit [facility] [place]2.[place].2.[place] [facility] [id number] [address] 2021-06-02 2021-06-02 Outpatient R KENNETH WOOD [facility] [id number] Univers 13:30:00 13:30:00 [id number] ity of [facility] 2021-06-02 2021-06-02 Outpatient R KENNETH WOOD [facility] [id number] Univers 13:30:00 13:30:00 ity [facility] 2021-05-21 2021-05-21 Refill Kenneth Wood [facility] 1.2.840.114 [id number] Univers 00:00:00 00:00:00 Messi 350.1.13.10 it y of Pediatric 4.2.7.2.[address] [facility] [id number] [address] 2021-05-19 2021-05-19 Routine Kenneth Wood [facility] [place] 1.2.840.114 [id number] Univers 13:36:18 14:15:21 Messi 350.1.13.10 i ty of Visit Women's 4.2.7.2.686 [facility] [id number] [address] 2021-05-19 2021-05-19 Outpatient R KENNETH WOOD [facility] [id number] Univers 13:30:00 13:30:00 [id number] ity [facility] 2021-05-19 2021-05-19 Outpatient R KENNETH WOOD [facility] [id number] Univers 13:30:00 13:30:00 ity of [facility] 2021-05-06 2021-05-06 Outpatient R [facility] [id number] Univers 11:15:00 11:15:00 [id number] ity of [facility] 2021-05-06 2021-05-06 Outpatient R KENNETH WOOD [facility] [id number] Univers 11:15:00 11:15:00 ity of [facility] 2021-05-06 2021-05-06 Clinical Project Manager Pily, Oksana [facility] Main [facility] 1.2.8 40.114 [id number] Univers 10:27:20 10:42:20 Visit Kenneth Wood 350.1.13.10 ity [facility] 4.2.7.2.686 [place] [id number] [place] dical [address] 2021-05-06 2021-05-06 Orders Doctor ANIBAL 1.2.840.114 [id number] Univers 00:00:00 00:00:00 Only Unassigned, DAVEY 350.1.13.10 ity of [place] [facility] 4.2.7.2.686 Ayaz as [id number] [address] 2021-05-05 2021-05-05 Routine Fish, Kenneth FLORES [place] 1.2.840.114 [id number] Univers 12:52:05 13:54:58 Messi 350.1.13.10 i ty of Visit [facility] 4[place]2.[place].2.686 [place] [facility] [id number] [address] 2021-05-05 2021-05-05 Outpatient R FISH, KENNETH [facility] [id number] Univers 13:15:00 13:15:00 [id number] ity [facility] 2021-05-05 2021-05-05 Outpatient R FISHKENNETH [facility] [id number] Univers 13:15:00 13:15:00 ity [facility] 2021-04-22 2021-04-22 Routine FishKenneth [facility] 1.2.840.114 [id number] Univers 10:17:38 11:07:22 Messi 350.1.13.10 i ty of Visit [facility] [place].2.686 [place] [facility] [id number] [address] 2021-04-22 2021-04-22 Outpatient R FISHKENNETH [facility] [id number] Univers 10:30:00 10:30:00 [id number] ity [facility] 2021-04-22 2021-04-22 Outpatient R FISHKENENTH [facility] [id number] Univers 10:30:00 10:30:00 ity [facility] 2021-03-27 2021-03-27 Outpatient R FISH, KENNETH [facility] [id number] Univers 10:45:00 10:45:00 [id number] ity [facility] 2021-03-25 2021-03-25 Outpatient R FISHKENNETH [facility] [id number] Univers 09:45:00 09:45:00 [id number] ity [facility] 2021-03-25 2021-03-25 Outpatient R FISHKENNETH [facility] [id number] Univers 09:45:00 09:45:00 ity [facility] 2021-03-06 2021-03-06 Outpatient R [facility] [id number] Univers 09:00:00 09:00:00 [id number] ity [facility] 2021-03-06 2021-03-06 Outpatient R [facility] [id number] Univers 09:00:00 09:00:00 ity [facility] 2021-02-27 2021-02-27 Outpatient R FISHKENNETH [facility] [id number] Univers 13:00:00 13:00:00 [id number] ity [facility] 2021-02-27 2021-02-27 Outpatient R FISHKENNETH [facility] [id number] Univers 13:00:00 13:00:00 ity [facility] 2021-01-30 2021-01-30 Outpatient R FISHKENNETH [facility] [id number] Univers 11:00:00 11:00:00 [id number] ity [facility] 2021-01-30 2021-01-30 Outpatient R FISHKENNETH [facility] [id number] Univers 11:00:00 11:00:00 ity [facility] 2021-01-02 2021-01-02 Outpatient R FISHKENNETH [facility] [id number] Univers 11:00:00 11:00:00 [id number] ity [facility] 2021-01-02 2021-01-02 Outpatient R FISHKENNETH [facility] [id number] Univers 11:00:00 11:00:00 ity [facility] 2020-12-12 2020-12-12 Outpatient R FISHKENNETH [facility] [id number] Univers 08:45:00 08:45:00 [id number] ity [facility] 2020-12-12 2020-12-12 Outpatient R KENNETH WOOD [facility] [id number] Univers 08:45:00 08:45:00 [facility] 2020-12-05 2020-12-05 Outpatient R KENNETH WOOD [facility] [id number] Univers 08:30:00 08:30:00 [id number] ity [facility] 2020-12-05 2020-12-05 Outpatient R KENNETH WOOD [facility] [id number] Univers 08:30:00 08:30:00 [facility] 2020-11-25 2020-11-25 Outpatient R KENNETH WOOD [facility] [id number] Univers 09:30:00 09:30:00 [facility] Results Test Description Test Time Test Comments Results Result Comments Source CBC with Differential 2021-07-23 10:13:09 Test Item Value Reference Range Interpretation Comme nts WBC (test code = 6690-2) See_Comment [A utomated message] The system which ge nerated this result transmit yanna reference range: 4.30 - 1 1.10 10*3/?L. The reference r adilene was not used to interpr et this result as normal/abnor mal. RBC (test code = 789-8) See_Comment L [Au tomated message] The system which Minus nerated this result transmit yanna reference range: 3.93 - 5 .25 10*6/?L. The reference r adilene was not used to interpr et this result as normal/abnor mal. HGB (test code = 718-7) 9.4 g/dL 11.6-15.0 L HCT (test code = 4544-3) 29.6 % 35.7-45.2 L MCV (test code = 787-2) 86.8 fL 80.6-95.5 MCH (test code = 785-6) 27.6 pg 25.9-32.8 MCHC (test code = 786-4) 31.8 g/dL 31.6-35.1 RDW-SD (test code = 98545-0) 43.9 fL 39.0-49.9 RDW-CV (test code = 788-0) 14.0 % 12.0-15.5 PLT (test code = 777-3) See_Comment [Au tomated message] The system which ge nerated this result transmit yanna reference range: 166 - 35 8 10*3/?L. The reference range was not used to interpret th is result as normal/abnormal . MPV (test code = 13230-2) 10.6 fL 9.5-12.9 NRBC/100 WBC (test code = See_Comment [ Automated message] The [id number]) system which ge nerated this result transmit yanna reference range: 0.0 - 10 .0 /100 WBCs. The reference r adilene was not used to interpr et this result as normal/abnor mal. NRBC x10^3 (test code = <0.01 See_Comment [Au tomated message] The [id number]) system which ge nerated this result transmit yanna reference range: 10*3/?L. The reference range was not u sed to interpret this result as normal/abnormal . GRAN MAT (NEUT) % (test code 73.0 % = 770-8) IMM GRAN % (test code = 0.50 % [id number]) LYMPH % (test code = 736-9) 18.5 % MONO % (test code = 5905-5) 5.3 % EOS % (test code = 713-8) 2.3 % BASO % (test code = 706-2) 0.4 % GRAN MAT x10^3(ANC) (test 8.06 10*3/uL 1.88-7.09 H code = 1429390569) IMM GRAN x10^3 (test code = 0.06 10*3/uL 0.00-0.06 [id number]) LYMPH x10^3 (test code = 2.04 10*3/uL 1.32-3.29 731-0) MONO x10^3 (test code = 0.58 10*3/uL 0.33-0.92 742-7) EOS x10^3 (test code = 0.25 10*3/uL 0.03-0.39 711-2) BASO x10^3 (test code = 0.04 10*3/uL 0.01-0.07 704-7) Lab Interpretation (test Abnormal code = 74463-9) [facility] IMMUNE [id number] 13:55:37 Test Item Value Reference Range Interpretation Comments RHIG CANDIDATE? No- see comment Patient i s not a (test code = candidate for R hIg- 5055) Patient is Rh Positive.Perfor med at [facility] Laboratory Services - [facility] Blood [id number] [place] [address]Toll Free: [phone] A No. [id number] [facility] B Surface [id number] 08:23:38 Test Item Value Reference Range Interpretation Comments HBsAg Semi-Quantitative (test code = Negative Negative 5195-3) [facility] SHWET[facility] ONLY - [id number] 07:20:06 Test Item Value Reference Range Interpretation Comments RPR (Qualitative) (test code = Nonreactive Nonreactive 21431-5) Lab Interpretation (test code = Normal 65054-9) [facility] AG-AB WITH [id number] 01:28:25 Test Item Value Reference Range Interpretation Comments HIV Negative Negative Semi-quantitative (test code = 47416-6) ILIANA (test code = Non-reactive for HIV-1 ILIANA) antigen and HIV-1/HIV-2 antibodies. ?No laboratory evidence of HIV infection. ?Repeat in 2-4 weeks if acute HIV infection is suspected. [facility] - ONCE [id number] 01:04:35 Test Item Value Reference Range Interpretation Comments ABO & RH (test code A Positive Performe d at [facility] = 20) Laboratory Serv [facility] [address] [address]Toll Free: [phone] A No. [id number] IAT (test code = Negative Performed a t [facility] 1185) Laboratory Serv [facility] [address] [address]Toll Free: [phone] No. [id number] [facility] [id number] 00:35:16 Test Item Value Reference Range Interpretation Comments WBC (test code = See_Comment [Automated message] 6690-2) The system [employer] generated this result transmitted ref erence range: 4.30 - 1 1.10 10*3/?L. The re ference range was not u sed to interpret this result as normal/abnor mal. RBC (test code = See_Comment [Automated message] 729-8) The system [employer] generated this result transmitted ref erence range: 3.93 - 5 .25 10*6/?L. The re ference range was not u sed to interpret this result as normal/abnor mal. HGB (test code = 11.6 g/dL 11.6-15.0 718-7) HCT (test code = 36.2 % 35.7-45.2 4544-3) MCV (test code = 86.4 fL 80.6-95.5 787-2) MCH (test code = 27.7 pg 25.9-32.8 785-6) MCHC (test code = 32.0 g/dL 31.6-35.1 786-4) RDW-SD (test code 42.9 fL 39.0-49.9 = 03944-5) RDW-CV (test code 13.7 % 12.0-15.5 = 788-0) PLT (test code = See_Comment [Automated message] 677-3) The system [employer] generated this result transmitted ref erence range: 166 - 35 8 10*3/?L. The re ference range was not u sed to interpret this result as normal/abnor mal. MPV (test code = 10.8 fL 9.5-12.9 71480-6) NRBC/100 WBC (test See_Comment [Automat ed message] code = 3123268782) The syste [employer] which generated this result transmitted ref erence range: 0.0 - 10 .0 /100 WBCs. The refer ence range was not u sed to interpret this result as normal/abnor mal. NRBC x10^3 (test <0.01 See_Comment [Automated message] code = 0978634808) The syste m which generated this result transmitted ref erence range: 10*3/?L. The reference range was not used to interpr et this result as normal/abnormal . GRAN MAT (NEUT) % 75.2 % (test code = 770-8) IMM GRAN % (test 0.50 % code = 1327687739) LYMPH % (test code 15.7 % = 736-9) MONO % (test code 5.8 % = 5905-5) EOS % (test code = 2.6 % 713-8) BASO % (test code 0.2 % = 706-2) GRAN MAT 6.49 10*3/uL 1.88-7.09 x10^3(ANC) (test code = 3071796869) IMM GRAN x10^3 0.04 10*3/uL 0.00-0.06 (test code = 2041791594) LYMPH x10^3 (test 1.35 10*3/uL 1.32-3.29 code = 731-0) MONO x10^3 (test 0.50 10*3/uL 0.33-0.92 code = 742-7) EOS x10^3 (test 0.22 10*3/uL 0.03-0.39 code = 711-2) BASO x10^3 (test <0.03 0.01-0.07 code = 704-7) [facility] URINALYSIS W/O SPECIFIC [id number] 21:50:00 Test Item Value Reference Range Interpretation Comments POCT PH U (test code = 3254) N/A 5-8 POCT U LEUK EST (test code = N/A Negative - Negative 3263) POCT U NIT (test code = 3262) N/A Negative - Negative POCT U PROT (test code = 3259) Negative Negative - Negative POCT U GLU (test code = 3256) Negative Negative - Negative POCT U KETONE (test code = 3258) N/A Negative - Negative POCT U BLD (test code = 3257) N/A Negative - Negative Lab Interpretation (test code = Normal 75294-7) [facility] URINALYSIS W/O SPECIFIC [id number] 15:31:00 Test Item Value Reference Range Interpretation Comments POCT PH U (test code = 3254) n/a 5-8 POCT U LEUK EST (test code = n/a Negative - Negative 3263) POCT U NIT (test code = 3262) n/a Negative - Negative POCT U PROT (test code = 3259) negative Negative - Negative POCT U GLU (test code = 3256) Negative - Negative POCT U KETONE (test code = 3258) n/a Negative - Negative POCT U BLD (test code = 3257) n/a Negative - Negative Lab Interpretation (test code = Normal 13313-2) [facility] URINALYSIS W/O SPECIFIC [id number] 16:27:00 Test Item Value Reference Range Interpretation Comments POCT PH U (test code = 3254) n/a 5-8 POCT U LEUK EST (test code = n/a Negative - Negative 3263) POCT U NIT (test code = 3262) n/a Negative - Negative POCT U PROT (test code = 3259) negative Negative - Negative POCT U GLU (test code = 3256) negative Negative - Negative POCT U KETONE (test code = 3258) n/a Negative - Negative POCT U BLD (test code = 3257) n/a Negative - Negative Lab Interpretation (test code = Normal 64617-0) [facility] URINALYSIS W/O SPECIFIC [id number] 18:55:00 Test Item Value Reference Range Interpretation Comments POCT PH U (test code = 3254) n/a 5-8 POCT U LEUK EST (test code = n/a Negative - Negative 3263) POCT U NIT (test code = 3262) n/a Negative - Negative POCT U PROT (test code = 3259) negative Negative - Negative POCT U GLU (test code = 3256) negative Negative - Negative POCT U KETONE (test code = 3258) n/a Negative - Negative POCT U BLD (test code = 3257) n/a Negative - Negative Lab Interpretation (test code = Normal 32175-1) [facility] URINALYSIS W/O SPECIFIC [id number] 18:47:00 Test Item Value Reference Range Interpretation Comments POCT PH U (test code = 3254) n/a 5-8 POCT U LEUK EST (test code = n/a Negative - Negative 3263) POCT U NIT (test code = 3262) n/a Negative - Negative POCT U PROT (test code = 3259) negative Negative - Negative POCT U GLU (test code = 3256) negative Negative - Negative POCT U KETONE (test code = 3258) n/a Negative - Negative POCT U BLD (test code = 3257) n/a Negative - Negative Lab Interpretation (test code = Normal 90068-8) [facility] [id number] 18:30:00 Test Item Value Reference Range Interpretation Comments POCT PH U (test code = 3254) N/A 5-8 POCT U LEUK EST (test code = N/A Negative - Negative 3263) POCT U NIT (test code = 3262) N/A Negative - Negative POCT U PROT (test code = 3259) Negative Negative - Negative POCT U GLU (test code = 3256) Negative Negative - Negative POCT U KETONE (test code = 3258) N/A Negative - Negative POCT U BLD (test code = 3257) N/A Negative - Negative Lab Interpretation (test code = Normal 42549-2) [facility]/O SPECIFIC [id number] 15:36:00 Test Item Value Reference Range Interpretation Comments POCT PH U (test code = 3254) n/a 5-8 POCT U LEUK EST (test code = n/a Negative - Negative 3263) POCT U NIT (test code = 3262) n/a Negative - Negative POCT U PROT (test code = 3259) negative Negative - Negative POCT U GLU (test code = 3256) Negative - Negative POCT U KETONE (test code = 3258) n/a Negative - Negative POCT U BLD (test code = 3257) n/a Negative - Negative Lab Interpretation (test code = Normal 57909-5) [facility]
[2022-01-19] MEDS ORDERED: ONDANSETRON 4 MG/2 ML VIAL ONE (08:40)
[2022-01-19] MEDS ORDERED: NA CHLORIDE 0.9% 1,000 ML ONE (08:40)
[2022-01-19] MEDS ORDERED: PANTOPRAZOLE 40 MG INJ ONE (08:44)
[2022-01-19 08:59] LABS: Absolute Lymphocytes (CBC) 0.7 K/uL (0.7-4.9); Hematocrit 40.6 % (36.0-45.0); Lymphocytes % 10.4 % (15.3-44.8); MPV 8.2 fL (7.6-11.3); RBC Red Blood Cell Count 4.72 M/uL (3.86-4.86)
[2022-01-19 09:22] LABS: Albumin 4.2 g/dL (3.4-5.0); Bilirubin Total 0.4 mg/dL (0.2-1.0); Potassium 3.8 mmol/L (3.5-5.1)
[2022-01-19 09:49] LABS: Blood Morphology Comment NOT SEEN (NOT SEEN); Platelet Estimate ADEQ; White Blood Cell Scan OK (OK)
--- NOTE | 2022-01-19 10:17 | RAD REPORT ---
EXAM DESCRIPTION: US - Abdomen Exam Limited - 01/19/2022 9:57 am CLINICAL HISTORY: nausea/vomiting COMPARISON: No comparisons FINDINGS: The gallbladder demonstrates no gallstones. No pericholecystic fluid or gallbladder wall t hickening. The common bile duct is normal measuring 4 mm. The liver demonstrates no findings of intrahepatic biliary dilatation. IMPRESSION: Unremarkable examination.
--- NOTE | 2022-01-19 11:11 | EDPHYS ---
Physician Documentation [facility] Name: Neelima Nix Age: 21 yrs Sex: Female : 2000 Arrival Date: 01/19/2022 Time: 08:01 Bed 16 Private MD: ED Physician Eduin Coello HPI: 01/19 08:35 This 21 yrs old Black Female presents to ER via Ambulatory with complaints of Vomiting. cp 08:35 The patient presents to the emergency department with nausea, that is moderate, cp vomiting, that is continuous. Onset: The symptoms/episode began/occurred this morning. Possible causes: unknown. Associated signs and symptoms: Pertinent negatives: abdominal pain, constipation, diarrhea, fever, GI bleeding. Severity of symptoms: in the emergency department the symptoms are unchanged despite home interventions. 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 - Social history:: Smoking status: Patient denies any tobacco usage or history of. ROS: 08:40 Constitutional: Negative for body aches, chills, fever. cp 08:40 Eyes: Negative for injury, pain, redness, and discharge. cp 08:40 ENT: Negative for drainage from ear(s), ear pain, sore throat, difficulty swallowing, difficulty handling secretions. 08:40 Cardiovascular: Negative for chest pain, edema, palpitations. 08:40 Respiratory: Negative for cough, shortness of breath, wheezing. 08:40 Abdomen/GI: Positive for nausea and vomiting, Negative for abdominal pain, diarrhea, constipation, hematemesis, black/tarry stool, rectal bleeding. 08:40 Back: Negative for pain at rest, pain with movement. 08:40 Neuro: Negative for altered mental status, dizziness, headache, weakness. 08:40 All other systems are negative. Exam: 08:45 Constitutional: The patient appears in no acute distress, alert, awake, cp non-diaphoretic, non-toxic, well developed, well nourished. 08:45 Head/Face: Normocephalic, atraumatic. cp 08:45 Eyes: Periorbital structures: appear normal, Conjunctiva: normal, no exudate, no injection, Lids and lashes: appear normal, bilaterally. 08:45 ENT: External ear(s): are unremarkable, Nose: is normal, Mouth: Lips: moist, Oral mucosa: pink and intact, moist, Posterior pharynx: Airway: no evidence of obstruction, patent. 08:45 Neck: ROM/movement: is normal, is supple, without pain, no range of motions limitations. 08:45 Chest/axilla: Inspection: normal, Palpation: is normal, no crepitus, no tenderness. 08:45 Cardiovascular: Rate: normal, Rhythm: regular. 08:45 Respiratory: the patient does not display signs of respiratory distress, Respirations: normal, no use of accessory muscles, no retractions, labored breathing, is not present, Breath sounds: are clear throughout, no decreased breath sounds, no stridor, no wheezing. 08:45 Abdomen/GI: Inspection: abdomen appears normal, Bowel sounds: active, all quadrants, Palpation: soft, in all quadrants, mild abdominal tenderness, in the epigastric area, rebound tenderness, is not appreciated, voluntary guarding, is not appreciated, involuntary guarding, is not appreciated. 08:45 Back: pain, is absent, ROM is normal. Vital Signs: 08:17 BP 124 / 89; Pulse 78; Resp 16; Temp 98.1; Pulse Ox 98% ; Weight 77.11 kg; Height 5 ft. iw 6 in. (167.64 cm); 09:26 BP 122 / 80; Pulse 89; Resp 17; Pulse Ox 96% on R/A; tw2 10:24 BP 105 / 60; Pulse 73; Resp 17; Pulse Ox 99% on R/A; tw2 08:17 Body Mass Index 27.44 (77.11 kg, 167.64 cm) iw MDM: 08:21 Patient medically screened. cp 11:10 Data reviewed: vital signs, nurses notes, lab test result(s), radiologic studies, cp ultrasound. 11:10 Counseling: I had a detailed discussion with the patient and/or guardian regarding: the cp historical points, exam findings, and any diagnostic results supporting the discharge/admit diagnosis, lab results, radiology results, to return to the emergency department if symptoms worsen or persist or if there are any questions or concerns that arise at home. Response to treatment: the patient's symptoms have markedly improved after treatment, and as a result, I will discharge patient. Special discussion: Based on the patient's Hx, exam, and Dx evaluation, there is no indication for emergent surgery or inpatient Tx. It is understood by the patient/guardian that if the Sx's persist or worsen they need to return immediately for re-evaluation. 01/19 08:29 Order name: CBC with Diff; Complete Time: 10:21 cp 01/19 09:22 Interpretation: Normal except: JOSEPH% 85.4; LYM% 10.4. cp 01/19 08:29 Order name: CMP; Complete Time: 09:23 cp 01/19 10:22 Interpretation: Normal except: CL 110. cp 01/19 08:29 Order name: Lipase; Complete Time: 09:23 cp 01/19 08:29 Order name: Urine Microscopic Only cp 01/19 08:32 Order name: Urine Dipstick-Ancillary; Complete Time: 08:57 EDMS 01/19 08:57 Interpretation: Normal except: UPROT 1+. cp 01/19 08:39 Order name: Urine --Ancillary (enter results) bd 01/19 08:29 Order name: IV Saline Lock; Complete Time: 08:53 cp 01/19 08:29 Order name: Labs collected and sent; Complete Time: 08:53 cp 01/19 09:06 Order name: CBC Smear Scan; Complete Time: 10:21 EDMS 01/19 09:23 Order name: US Abdomen Limited; Complete Time: 10:21 cp 01/19 10:21 Interpretation: Report reviewed. cp 01/19 08:29 Order name: Urine Dipstick-Ancillary (obtain specimen); Complete Time: 08:32 cp 01/19 08:29 Order name: Urine Test (obtain specimen); Complete Time: 08:32 cp 01/19 10:54 Order name: PO challenge; Complete Time: 11:07 cp Administered Medications: 08:36 Not Given (Physician Discretion): Pepcid (famotidine) 20 mg IVP once; dilute with 10 mL cp 0.9% NaCl; give over 2 minutes 08:45 Drug: NS 0.9% 1000 ml Route: IV; Rate: 1 bolus; Site: left antecubital; tw2 10:00 Follow up: Response: No adverse reaction; IV Status: Completed infusion; IV Intake: tw2 1000ml 08:45 Drug: Zofran (Ondansetron) 4 mg Route: IVP; Site: left antecubital; tw2 09:37 Follow up: Response: No adverse reaction; Nausea is decreased tw2 08:47 Drug: ProTONIX (pantoprazole) 40 mg Route: IVP; Site: left antecubital; tw2 09:37 Follow up: Response: No adverse reaction tw2 Disposition: 17:40 Co-signature as Attending Physician, Eduin Coello MD. rn Disposition Summary: 01/19/22 11:10 Discharge Ordered Location: Home cp Problem: new cp Symptoms: have improved cp Condition: Stable cp Diagnosis - Nausea with vomiting, unspecified cp Followup: cp - With: Private Physician - When: 1 - 2 days - Reason: Worsening of condition Discharge Instructions: - Nausea and Vomiting, Adult cp - Discharge Summary Sheet tw2 Forms: - Medication Reconciliation Form cp - Thank You Letter cp - Work release form tw2 - Antibiotic Education cp - Prescription Opioid Use cp Prescriptions: - Pepcid 20 mg Oral Tablet - take 1 tablet by ORAL route every 12 hours for 5 days; 10 tablet; Refills: 0, cp Product Selection Permitted - Zofran 4 mg Oral Tablet - take 1 tablet by ORAL route every 12 hours As needed; 20 tablet; Refills: 0, cp Product Selection Permitted Signatures: Dispatcher [employer] Paloma Dewey, Eduin Ferrell RN, MD MD rn Page, Corey, PA PA cp Wise, Tara, RN RN tw2
--- NOTE | 2022-01-19 11:11 | ER ---
Nurse's Notes [facility] Name: Neelima Nix Age: 21 yrs Sex: Female : 2000 Arrival Date: 01/19/2022 Time: 08:01 Bed 16 Private MD: Diagnosis: Nausea with vomiting, unspecified Presentation: 01/19 08:17 Chief complaint: Patient states: vomiting since last night, every 30 minutes, now iw vomiting bile , no pain, cannot tolerate water. Coronavirus screen: Client presents with at least one sign or symptom that may indicate coronavirus-19. Ebola Screen: Patient negative for fever greater than or equal to 101.5 degrees Fahrenheit, and additional compatible Ebola Virus Disease symptoms Patient denies exposure to infectious person. Patient denies travel to an Ebola-affected area in the 21 days before illness onset. No symptoms or risks identified at this time. Initial Sepsis Screen: Does the patient meet any 2 criteria? No. Patient's initial sepsis screen is negative. Does the patient have a suspected source of infection? No. Patient's initial sepsis screen is negative. Risk Assessment: Do you want to hurt yourself or someone else? Patient reports no desire to harm self or others. Onset of symptoms was January 19, 2022. 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 - Social history:: Smoking status: Patient denies any tobacco usage or history of. Screenin:20 Abuse screen: Denies threats or abuse. Nutritional screening: No deficits noted. tw2 Tuberculosis screening: No symptoms or risk factors identified. Fall Risk None identified. Assessment: 08:26 Reassessment: provider at bedside at this time. Pain: Complains of pain in abdomen. tw2 Neuro: Level of Consciousness is awake, alert, obeys commands, Oriented to person, place, time, situation. Respiratory: Airway is patent Respiratory effort is even, unlabored, Respiratory pattern is regular, symmetrical. GI: Abdomen is flat, Reports nausea, vomiting. 09:26 Reassessment: Patient appears in no apparent distress at this time. No changes from tw2 previously documented assessment. Patient and/or family updated on plan of care and expected duration. Pain level reassessed. Patient is alert, oriented x 3, equal unlabored respirations, skin warm/dry/pink. 09:48 Reassessment: US at bedside at this time. tw2 10:24 Reassessment: Patient appears in no apparent distress at this time. No changes from tw2 previously documented assessment. Patient and/or family updated on plan of care and expected duration. Pain level reassessed. Patient is alert, oriented x 3, equal unlabored respirations, skin warm/dry/pink. 10:57 Reassessment: PO fluids given to pt at this time. will continue to monitor. tw2 11:07 Reassessment: Patient appears in no apparent distress at this time. Patient and/or tw2 family updated on plan of care and expected duration. Pain level reassessed. Patient is alert, oriented x 3, equal unlabored respirations, skin warm/dry/pink. pt tolerated PO fluids at this time. provider notified. Vital Signs: 08:17 BP 124 / 89; Pulse 78; Resp 16; Temp 98.1; Pulse Ox 98% ; Weight 77.11 kg; Height 5 ft. iw 6 in. (167.64 cm); 09:26 BP 122 / 80; Pulse 89; Resp 17; Pulse Ox 96% on R/A; tw2 10:24 BP 105 / 60; Pulse 73; Resp 17; Pulse Ox 99% on R/A; tw2 08:17 Body Mass Index 27.44 (77.11 kg, 167.64 cm) iw ED Course: 08:01 Patient arrived in ED. as 08:11 Hugo Amato PA is PHCP. cp 08:11 Eduin Coello MD is Attending Physician. cp 08:18 Triage completed. iw 08:18 Arm band placed on. iw 08:20 Noemy Alcaraz, ISABEL is Primary Nurse. tw2 08:26 Bed in low position. Call light in reach. Pulse ox on. NIBP on. tw2 08:45 Inserted saline lock: 20 gauge in left antecubital area, using aseptic technique. Blood tw2 collected. 09:59 US Abdomen Limited In Process Unspecified. EDMS 10:25 Noemy Alcaraz, RN is Primary Nurse. tw2 11:16 No provider procedures requiring assistance completed. IV discontinued, intact, tw2 bleeding controlled, No redness/swelling at site. Pressure dressing applied. Administered Medications: 08:36 Not Given (Physician Discretion): Pepcid (famotidine) 20 mg IVP once; dilute with 10 mL cp 0.9% NaCl; give over 2 minutes 08:45 Drug: NS 0.9% 1000 ml Route: IV; Rate: 1 bolus; Site: left antecubital; tw2 10:00 Follow up: Response: No adverse reaction; IV Status: Completed infusion; IV Intake: tw2 1000ml 08:45 Drug: Zofran (Ondansetron) 4 mg Route: IVP; Site: left antecubital; tw2 09:37 Follow up: Response: No adverse reaction; Nausea is decreased tw2 08:47 Drug: ProTONIX (pantoprazole) 40 mg Route: IVP; Site: left antecubital; tw2 09:37 Follow up: Response: No adverse reaction tw2 Medication: 08:21 VIS not applicable for this client. tw2 Intake: 10:00 IV: 1000ml; Total: 1000ml. tw2 Outcome: 11:10 Discharge ordered by MD. cp 11:17 Discharged to home ambulatory. tw2 11:17 Condition: stable 11:17 Discharge instructions given to patient, Instructed on discharge instructions, follow up and referral plans. no drinking with medication, no driving heavy equipment, medication usage, Demonstrated understanding of instructions, follow-up care, medications, Prescriptions given X 2. 11:17 Patient left the ED. tw2 Signatures: Dispatcher [employer] Liza Alvarado Irene, RN RN iw Hugo Amato PA PA cp Wise, Tara, RN RN tw2 Corrections: (The following items were deleted from the chart) 08:59 08:17 Chief complaint: Patient states: vomiting since last night, eery 30 minutes, now iw vomiting bile , no pain, cannot tolerate water iw
[2022-01-19 11:26] VITALS: TEMP 98.1
[2022-01-19 11:29] VITALS: BP 105/60; O2SAT 99
[2022-01-19 11:58] LABS: Urine Bacteria <20 /HPF (<20); Urine Mucus SLIGHT /HPF (NONE SEEN); Urine RBC <5 /HPF (NONE SEEN)
[2022-01-19 22:09] LABS: Urine Specific Gravity/Preg 1.015 (1.005-1.030)
== END 2022-01-19 11:17 | disposition home or self-care (01) ==
LOC: ER 08:01
DX: R11.2 Nausea with vomiting, unspecified (principal)
CPT/HCPCS: 96361; 85025; 36415; 81025; 83690; 80053; 76705; 96375; 96374; 99284; C9113; J7030; J2405; 81003; 81015

== ENCOUNTER 2023-02-19 14:11 | Emergency (ER) | payer BC, OTHER ==
--- OUTSIDE RECORDS SUMMARY | 2023-02-19 14:16 | XMS REPORT | Continuity of Care Document ---
:2000 Author Organization [facility] t Address [address] [facility] [address] [place] [address] Care Team Providers Name Role Phone KENNETH WOOD Primary Care Physician Unavailable KENNETH WOOD Attending Clinician Unavailable Kenneth Wood MD Attending Clinician Garrett Dillard MD Attending Clinician Doctor Unassigned, [place] Attending Clinician Unavailable Only, Adc Test Attending Clinician Unavailable Pob, Adc Lab Main Attending Clinician Unavailable KENNETH WOOD Admitting Clinician Unavailable Kenneth Wood MD Admitting Clinician Payers Payer Name Policy Type Policy Number Effective Date Expiration Date S didier [facility] - [id number] 2020 OUT OF STATE 00:00:00 [facility] [id number] 2021 [facility] MEDICAID 00:00:00 [place] [id number] 2021 HEALTH 00:00:00 MEDICAID [facility] ALICE [id number] 2020 00:00:00 [employer] O [id number] 2019 00:00:00 Problems Condition Condition Condition Status Onset Resolution Last Treating Co mments Source Name Details Category Date Date Treatment Clinician Date Disease Active 2020-08 U nivers care and care and - ity of examin[place] 00 Medical immediatel immediatel Br anch y after y after delivery delivery Liveborn, Liveborn, Disease Active 2020-08 Uni vers born in born in 2-07 ity of hospital hospital 00:00: [place] 00 Medical Wendel Encounter Encounter Disease Active 2020-08 Uni vers for for 2-06 ity of elective elective 00:00: [place] induction induction 00 Medi adalberto of labor of labor Branch Dry skin Dry skin Disease Active Unive rs 9-08 ity of 00:00: [place] [address] [facility] Supervisio Supervisio Disease Active U nivers n of high n of high 8-10 ity of risk risk 00:00: [place] 00 Medi adalberto in third in third Branch trimester trimester Screening Screening Disease Active Uni vers for for 6-17 ity of genetic genetic 00:00: [place] disease disease 00 Medical carrier carrier Branch status status Underweigh Underweigh Disease Active U nivers t t 5-23 ity of 00:00: [place] [address] [facility] Chlamydia Chlamydia Disease Active Uni vers trachomati trachomati 4-30 it y of s s 00:00: [place] infection infection 00 Medi adalberto of lower of lower Branch genitourin genitourin ruslan sites ruslan sites Missed Missed Disease Active Univers menses menses 4-12 ity of 00:00: [place] [address] [facility] Allergies, Adverse Reactions, Alerts Allergy Allergy Status Severity Reaction(s) Onset Inactive Treating Comm ents Source Name Type Date Date Clinician NO KNOWN Drug Active Univers ALLERGIE Class ity of [facility] Social History Social Habit Start Date Stop Date Quantity Comments Source ASSERTION 2020-11-01 [facility] 00:00:00 [facility] Exposure to Not sure [facility] SARS-CoV-2 [facility] (event) Branch Alcohol intake 2021-09-23 2021-09-23 Ex-drinker [facility] 00:00:00 00:00:00 (finding) [facility] Tobacco use and 2020-11-25 2020-11-25 Never used Universit y of exposure 00:00:00 00:00:00 [facility] Sex Assigned At 2000 2000 Universit y of 00:00:00 00:00:00 [facility] Smoking Status Start Date Stop Date Source Never smoker [facility] Medications Ordered Filled Start Stop Current Ordering Indication Dosage Frequency Signature Comments Components Source Medication Medication Date Date Medication? Clinician (SIG) Name Name miSOPROStoL 2021- No [id number] 200ug Take 1 Univers 200 mcg 2-08 [...] :00 Medical Branch PNV 67-iron 2020-08 Yes [id number] 1{capsu Take 1 Univers ps-folate 2-08 le} capsule by ity of no.1-dha 00:00: mouth [place] (VITAFOL 00 daily. Medical ULTRA) 29 Branch mg iron- 1 mg-200 mg Cap docusate 2020-08 Yes [id number] 240mg Take 1 Univers calcium 240 2-08 102 capsule by it y of mg capsule 00:00: mouth [place] 00 daily as Medical needed for Branch Constipati on. ferrous 2020-08 Yes [id number] 325mg Take 1 Univers sulfate 325 2-08 102 tablet by ity of mg (65 mg 00:00: mouth [place] iron) 00 daily. Medical tablet Branch ibuprofen 2020-08 Yes [id number] 600mg Take 1 Univers 600 mg 2-08 102 tablet by ity of tablet 00:00: mouth [place] 00 every 6 Medical (six) Branch hours as needed (Pain). Take with food or milk. PNV 67-iron 2020-08 Yes [id number] 1{capsu Take 1 Univers ps-folate 2-08 le} capsule by ity of no.1-dha 00:00: mouth [place] (VITAFOL 00 daily. Medical ULTRA) 29 Branch mg iron- 1 mg-200 mg Cap docusate 2020-08 Yes [id number] 240mg Take 1 Univers calcium 240 2-08 102 capsule by it y of mg capsule 00:00: mouth [place] 00 daily as Medical needed for Branch Constipati on. ferrous 2020-08 Yes [id number] 325mg Take 1 Univers sulfate 325 2-08 102 tablet by ity of mg (65 mg 00:00: mouth [place] iron) 00 daily. Medical tablet Branch ibuprofen 2020-08 Yes [id number] 600mg Take 1 Univers 600 mg 2-08 102 tablet by ity of tablet 00:00: mouth [place] 00 every 6 Medical (six) Branch hours as needed (Pain). Take with food or milk. PNV 67-iron 2020-08 Yes [id number] 1{capsu Take 1 Univers ps-folate 2-08 le} capsule by ity of no.1-dha 00:00: mouth [place] (VITAFOL 00 daily. Medical ULTRA) 29 Branch mg iron- 1 mg-200 mg Cap docusate 2020-08 Yes [id number] 240mg Take 1 Univers calcium 240 2-08 102 capsule by it y of mg capsule 00:00: mouth [place] 00 daily as Medical needed for Branch Constipati on. ferrous 2020-08 Yes [id number] 325mg Take 1 Univers sulfate 325 2-08 102 tablet by ity of mg (65 mg 00:00: mouth [place] iron) 00 daily. Medical tablet Branch ibuprofen 2020-08 Yes [id number] 600mg Take 1 Univers 600 mg 2-08 102 tablet by ity of tablet 00:00: mouth [place] 00 every 6 Medical (six) Branch hours as needed (Pain). Take with food or milk. PNV 67-iron 2020-08 Yes [id number] 1{capsu Take 1 Univers ps-folate 2-08 le} capsule by ity of no.1-dha 00:00: mouth [place] (VITAFOL 00 daily. Medical ULTRA) 29 Branch mg iron- 1 mg-200 mg Cap docusate 2020-08 Yes [id number] 240mg Take 1 Univers calcium 240 2-08 102 capsule by it y of mg capsule 00:00: mouth [place] 00 daily as Medical needed for Branch Constipati on. ferrous 2020-08 Yes [id number] 325mg Take 1 Univers sulfate 325 2-08 102 tablet by ity of mg (65 mg 00:00: mouth [place] iron) 00 daily. Medical tablet Branch ibuprofen 2020-08 Yes [id number] 600mg Take 1 Univers 600 mg 2-08 102 tablet by ity of tablet 00:00: mouth [place] 00 every 6 Medical (six) Branch hours as needed (Pain). Take with food or milk. PNV 67-iron 2020-08 Yes [id number] 1{capsu Take 1 Univers ps-folate 2- le} capsule by ity of no.1-dha 00:00: mouth [place] (VITAFOL 00 daily. Medical ULTRA) 29 Branch mg iron- 1 mg-200 mg Cap ibuprofen 2020-08 Yes [id number] 600mg Take 1 Univers 600 mg 2-08 102 tablet by ity of tablet 00:00: mouth [place] 00 every 6 Medical (six) Branch hours as needed (Pain). Take with food or milk. docusate 2020-08- No [id number] 240mg Take 1 Univers calcium 240 09-23- 102 capsule by i ty of mg capsule 00:00: 00:00 mouth once [place] 00 :00 daily as Medical needed for Branch Constipati on. ferrous 2020-08- No [id number] 325mg Take 1 Univers sulfate 325 09-23- 102 tablet by it y of mg [...] 15 Starting Medi adalberto tablet 1 on [facility] tablet 07/22/21 at 0336, Until Discontinu ed, Routine, Pain (scale 7-10) ibuprofen 2020-08 Yes 600mg 600 mg, Univ ers (IBU) 2-07 Oral, ity of tablet 600 09:36: Q6HPRN, [place] mg 15 Starting Medical on Branch 07/22/21 at 0336, Until Discontinu ed, Routine, Pain (scale 4-6) acetaminoph 2020-08 Yes 650mg 650 mg, Un tarah en 2-07 Oral, ity of (TYLENOL) 09:36: Q6HPRN, [place] tablet 650 15 [facility] 0336, Until Discontinu ed, Routine, [...] 240 15 Starting Medi adalberto mg on Wed Branch 07/22/21 at 0336, Until Discontinu ed, Routine, Constipati [...] [place] 20-0.5 % 14 on Medical topical 07/22/21 at Branch spray 0336, [...] 13:14 INTRA [place] W/EPINEPHRI 00 :24 PROCEDURE, Or dical NE) 1.5 Starting Branch %-1:200,000 on Wed [...] No 2mU/min at 6-120 Univers + oxytocin 09-2207 mL/hr, IV ity of 20 units IV [...] NS, Starting on Wed07/21/21 at 1722, Until Wed07/22/21 at 0337, Routine PNV 67-iron 2020-08 Yes [id number] 1{capsu Take 1 Univers ps-folate 0-06 le} capsule by ity of no.1-dha 00:00: mouth [place] (VITAFOL 00 daily. Medical ULTRA) 29 Branch mg iron- 1 mg-200 mg Cap PNV 67-iron 2020-08 Yes [id number] 1{capsu Take 1 Univers ps-folate 0-06 le} capsule by ity of no.1-dha 00:00: mouth [place] (VITAFOL 00 daily. Medical ULTRA) 29 Branch mg iron- 1 mg-200 mg Cap PNV 67-iron 2020-08 Yes [id number] 1{capsu Take 1 Univers ps-folate 0-06 le} capsule by ity of no.1-dha 00:00: mouth [place] (VITAFOL 00 daily. Medical ULTRA) 29 Branch mg iron- 1 mg-200 mg Cap PNV 67-iron 2020-08 Yes [id number] 1{capsu Take 1 Univers ps-folate 0-06 le} capsule by ity of no.1-dha 00:00: mouth [place] (VITAFOL 00 daily. Medical ULTRA) 29 Branch mg iron- 1 mg-200 mg Cap PNV 67-iron 2020-08 Yes [id number] 1{capsu Take 1 Univers ps-folate 0-06 le} capsule by ity of no.1-dha 00:00: mouth [place] (VITAFOL 00 daily. Medical ULTRA) 29 Branch mg iron- 1 mg-200 mg Cap PNV 67-iron 2020-08 Yes [id number] 1{capsu Take 1 Univers ps-folate 0-06 le} capsule by ity of no.1-dha 00:00: mouth [place] (VITAFOL 00 daily. Medical ULTRA) 29 Branch mg iron- 1 mg-200 mg Cap PNV 67-iron 2020-08 Yes [id number] 1{capsu Take 1 Univers ps-folate 0-06 le} capsule by ity of no.1-dha 00:00: mouth [place] (VITAFOL 00 daily. Medical ULTRA) 29 Branch mg iron- 1 mg-200 mg Cap PNV 67-iron 2020-08 Yes [id number] 1{capsu Take 1 Univers ps-folate 0-06 le} capsule by ity of no.1-dha 00:00: mouth [place] (VITAFOL 00 daily. Medical ULTRA) 29 Branch mg iron- 1 mg-200 mg Cap PNV 67-iron 2020-08 Yes [id number] 1{capsu Take 1 Univers ps-folate 0-06 le} capsule by ity of no.1-dha 00:00: mouth [place] (VITAFOL 00 daily. Medical ULTRA) 29 Branch mg iron- 1 mg-200 mg Cap PNV 67-iron 2020-08 Yes [id number] 1{capsu Take 1 Univers ps-folate 0-06 le} capsule by ity of no.1-dha 00:00: mouth [place] (VITAFOL 00 daily. Medical ULTRA) 29 Branch mg iron- 1 mg-200 mg Cap PNV 67-iron 2020-08 Yes [id number] 1{capsu Take 1 Univers ps-folate 0-06 le} capsule by ity of no.1-dha 00:00: mouth [place] (VITAFOL 00 daily. Medical ULTRA) 29 Branch mg iron- 1 mg-200 mg Cap PNV 67-iron 2020-08 Yes [id number] 1{capsu Take 1 Univers ps-folate 0-06 le} capsule by ity of no.1-dha 00:00: mouth [place] (VITAFOL 00 daily. Medical ULTRA) 29 Branch mg iron- 1 mg-200 mg Cap PNV 67-iron 2020-08 Yes [id number] 1{capsu Take 1 Univers ps-folate 0-06 le} capsule by ity of no.1-dha 00:00: mouth [place] (VITAFOL 00 daily. Medical ULTRA) 29 Branch mg iron- 1 mg-200 mg Cap PNV 67-iron 2020-08 Yes [id number] 1{capsu Take 1 Univers ps-folate 0-06 le} capsule by ity of no.1-dha 00:00: mouth [place] (VITAFOL 00 daily. Medical ULTRA) 29 Branch mg iron- 1 mg-200 mg Cap PNV 67-iron 2020-08 Yes [id number] 1{capsu Take 1 Univers ps-folate 0-06 le} capsule by ity of no.1-dha 00:00: mouth [place] (VITAFOL 00 daily. Medical ULTRA) 29 Branch mg iron- 1 mg-200 mg Cap PNV 67-iron 2020-08- No [id number] 1{capsu Take 1 Univers ps-folate 0-06 12-08 le} capsule by ity of no.1-dha 00:00: 00:00 mouth [place] (VITAFOL 00 :00 daily. Medical ULTRA) 29 Branch mg iron- 1 mg-200 mg Cap lanolin Yes [id number] 1{appli Apply 1 Univers % Crea 9-07 cator} Applicator ity o f 00:00: to area(s) [place] 00 2 (two) Medical times Branch daily. lanolin Yes [id number] 1{appli Apply 1 Univers % Crea 9-07 cator} Applicator ity o f 00:00: to area(s) [place] 00 2 (two) Medical times Branch daily. lanolin Yes [id number] 1{appli Apply 1 Univers % Crea 9-07 cator} Applicator ity o f 00:00: to area(s) [place] 00 2 (two) Medical times Branch daily. lanolin Yes [id number] 1{appli Apply 1 Univers % Crea 9-07 cator} Applicator ity o f 00:00: to area(s) [place] 00 2 (two) Medical times Branch daily. VITAFOL Yes 1{capsu Take 1 Unive rs ULTRA 29 mg 9-07 le} capsule by it y of iron- 1 00:00: mouth [place] mg-200 mg 00 daily. Medical Cap Branch lanolin Yes [id number] 1{appli Apply 1 Univers % Crea 9-07 cator} Applicator ity o f 00:00: to area(s) [place] 00 2 (two) Medical times Branch daily. VITAFOL Yes 1{capsu Take 1 Unive rs ULTRA 29 mg 9-07 le} capsule by it y of iron- 1 00:00: mouth [place] mg-200 mg 00 daily. Medical Cap Branch lanolin Yes [id number] 1{appli Apply 1 Univers % Crea 9-07 cator} Applicator ity o f 00:00: to area(s) [place] 00 2 (two) Medical times Branch daily. lanolin Yes [id number] 1{appli Apply 1 Univers % Crea 9-07 cator} Applicator ity o f 00:00: to [facility](s) [place] 00 2 (two) Medical times Branch daily. lanolin Yes [id number] 1{appli Apply 1 Univers % Crea 9-07 cator} Applicator ity o f 00:00: to [facility](s) [place] 00 2 (two) Medical times Branch daily. lanolin Yes [id number] 1{appli Apply 1 Univers % Crea 9-07 cator} Applicator ity o f 00:00: to [facility](s) [place] 00 2 (two) Medical times Branch daily. lanolin Yes [id number] 1{appli Apply 1 Univers % Crea 9-07 cator} Applicator ity o f 00:00: to [facility]() [place] 00 2 (two) Medical times Branch daily. lanolin 2020- No [id number] 1{appli Apply 1 Univers % Crea 9-07 11-18 cator} Applicator ity of 00:00: 00:00 to area(s) [place] 00 :00 2 (two) Medical times Branch daily. VITAFOL 2020- No 1{capsu Take 1 Univ ers ULTRA 29 mg 9-07 10-06 le} capsule by i ty of iron- 1 00:00: 00:00 mouth [place] mg-200 mg 00 :00 daily. Medical Cap Branch Yes [id number] 1{capsu Take 1 Univers 26-iron 8-10 le} capsule by ity of ps-folic-dh 00:00: mouth [place] a 00 daily. Medical (VITAFOL-ON Branch E) 29 mg iron- 1 mg-200 mg per capsule Yes [id number] 1{capsu Take 1 Univers 26-iron 8-10 le} capsule by ity of ps-folic-dh 00:00: mouth [place] a 00 daily. Medical (VITAFOL-ON Branch E) 29 mg iron- 1 mg-200 mg per capsule Yes [id number] 1{capsu Take 1 Univers 26-iron 8-10 le} capsule by ity of ps-folic-dh 00:00: mouth [place] a 00 daily. Medical (VITAFOL-ON Branch E) 29 mg iron- 1 mg-200 mg per capsule 2020- No [id number] 1{capsu Take 1 Univers 26-iron -05-07 le} capsule by [place] o f ps-folic-dh 00:00: 00:00 [place] a 00 :00 daily. Medical (VITAFOL-ON Branch E) 29 mg iron- 1 mg-200 mg per capsule VITAFOL 2020- No 1{capsu Take 1 Univ ers ULTRA 29 mg 03-25 le} capsule by i harsh of iron- 1 00:00: 00:00 mouth [place] mg-200 mg 00 :00 daily. Medical [facility] Branch Immunizations Ordered Filled Immunization Date Status Comments [facility] e Immunization Name Name TD 2021-05-19 Completed University of 00:00:00 [facility] TDAP 2021-05-19 Completed University of 00:00:00 [facility] Branch TDAP 2021-05-19 Completed University of 00:00:00 [facility] Branch TDAP 2021-05-19 Completed University of 00:00:00 [facility] Branch TDAP 2021-05-19 Completed University of 00:00:00 [facility] Branch TDAP 2021-05-19 Completed University of 00:00:00 [facility] TDAP 2021-05-19 Completed University of 00:00:00 [facility] TDAP 2021-05-19 Completed University of 00:00:00 [place] [facility] TDAP 2021-05-19 Completed University of 00:00:00 [place] [facility] TDAP 2021-05-19 Completed University of 00:00:00 [facility] Branch TDAP 2021-05-19 Completed University of 00:00:00 [facility] Branch TDAP 2021-05-19 Completed University of 00:00:00 [place] [facility] TDAP 2021-05-19 Completed University of 00:00:00 [facility] Branch TDAP 2021-05-19 Completed University of 00:00:00 [facility] Branch TDAP 2021-05-19 Completed University of 00:00:00 [facility] TDAP 2021-05-19 Completed University of 00:00:00 [facility] TDAP 2021-05-19 Completed University of 00:00:00 [place] [facility] TDAP 2021-05-19 Completed University of 00:00:00 [place] [facility] TDAP 2021-05-19 Completed University of 00:00:00 [place] [facility] TDAP 2021-05-19 Completed University of 00:00:00 [place] [facility] TDAP 2021-05-19 Completed University of 00:00:00 [facility] Vital Signs Vital Name Observation Time Observation Value Comments Source Systolic blood 2021-09-23 14:23:00 125 mm[Hg] Univer sity of pressure [place] [facility] Diastolic blood 2021-09-23 14:23:00 76 mm[Hg] Unive rsity of pressure [place] [facility] Heart rate 2021-09-23 14:23:00 67 /min Universi ty of [place] [facility] Body temperature 2021-09-23 14:23:00 36.89 Frieda Univ ersity of [place] [facility] Respiratory rate 2021-09-23 14:23:00 18 /min Univ ersity of [place] [facility] Body height 2021-09-23 14:23:00 167.6 cm Universi ty of [place] [facility] Body weight 2021-09-23 14:23:00 77.14 kg Universi ty of [place] [facility] BMI 2021-09-23 14:23:00 27.45 kg/m2 Universi ty of [place] [facility] Systolic blood 2021-08-04 19:59:00 113 mm[Hg] Univer sity of pressure [place] [facility] Diastolic blood 2021-08-04 19:59:00 77 mm[Hg] Unive rsity of pressure [place] [facility] Heart rate 2021-08-04 19:59:00 90 /min Universi ty of [place] [facility] Body temperature 2021-08-04 19:59:00 37.11 Frieda Univ ersity of [place] [facility] Respiratory rate 2021-08-04 19:59:00 18 /min Univ ersity of [place] [facility] Body height 2021-08-04 19:59:00 167.6 cm Universi ty of [place] [facility] Body weight 2021-08-04 19:59:00 76.386 kg Universi ty of [place] [facility] BMI 2021-08-04 19:59:00 27.18 kg/m2 Universi ty of [place] [facility] Systolic blood 2021-07-23 19:15:00 121 mm[Hg] Univer sity of pressure [place] [facility] Diastolic blood 2021-07-23 19:15:00 75 mm[Hg] Unive rsity of pressure [place] [facility] Heart rate 2021-07-23 19:15:00 106 /min Universi ty of [place] [facility] Body temperature 2021-07-23 19:15:00 37.11 Frieda Univ ersity of [place] [facility] Respiratory rate 2021-07-23 19:15:00 20 /min Univ ersity of [place] [facility] Oxygen saturation in 2021-07-23 13:45:00 99 /min University of Arterial blood by [facility] Pulse oximetry Branch Body height 2021-07-21 23:35:00 167.6 cm Universi ty of [place] Medical Wendel Body weight 2021-07-21 23:35:00 84.823 kg Universi ty of [place] [facility] BMI 2021-07-21 23:35:00 30.18 kg/m2 Universi ty of [place] [facility] Systolic blood 2021-07-17 21:30:00 132 mm[Hg] Univer sity of pressure [place] [facility] Diastolic blood 2021-07-17 21:30:00 81 mm[Hg] Unive rsity of pressure [place] [facility] Heart rate 2021-07-17 21:30:00 78 /min Universi ty of [place] [facility] Body temperature 2021-07-17 21:30:00 37.28 Frieda Univ ersity of [place] [facility] Respiratory rate 2021-07-17 21:30:00 18 /min Univ ersity of [place] [facility] Body height 2021-07-17 21:30:00 167.6 cm Universi ty of [place] [facility] Body weight 2021-07-17 21:30:00 85.872 kg Universi ty of [place] [facility] BMI 2021-07-17 21:30:00 30.56 kg/m2 Universi ty of [place] [facility] Systolic blood 2021-07-08 21:59:00 112 mm[Hg] Univer sity of pressure [place] [facility] Diastolic blood 2021-07-08 21:59:00 69 mm[Hg] Unive rsity of pressure [place] [facility] Heart rate 2021-07-08 21:59:00 68 /min Universi ty of [place] [facility] Body temperature 2021-07-08 21:59:00 36.94 Frieda Univ ersity of [place] [facility] Respiratory rate 2021-07-08 21:59:00 18 /min Univ ersity of [place] [facility] Body height 2021-07-08 21:59:00 167.6 cm Universi ty of [place] [facility] Body weight 2021-07-08 21:59:00 82.645 kg Universi ty of [place] [facility] BMI 2021-07-08 21:59:00 29.41 kg/m2 Universi ty of [place] [facility] Systolic blood 2021-07-03 21:49:00 122 mm[Hg] Univer sity of pressure [place] [facility] Diastolic blood 2021-07-03 21:49:00 75 mm[Hg] Unive rsity of pressure [place] [facility] Heart rate 2021-07-03 21:49:00 74 /min Universi ty of [place] [facility] Body temperature 2021-07-03 21:49:00 36.78 Frieda Univ ersity of [place] [facility] Respiratory rate 2021-07-03 21:49:00 18 /min Univ ersity of [place] [facility] Body height 2021-07-03 21:49:00 167.6 cm Universi ty of [place] [facility] Body weight 2021-07-03 21:49:00 83.099 kg Universi ty of [place] [facility] BMI 2021-07-03 21:49:00 29.57 kg/m2 Universi ty of [place] [facility] Systolic blood 2021-06-24 15:29:00 127 mm[Hg] Univer sity of pressure [place] [facility] Diastolic blood 2021-06-24 15:29:00 71 mm[Hg] Unive rsity of pressure [place] [facility] Heart rate 2021-06-24 15:28:00 100 /min Universi ty of [place] [facility] Body temperature 2021-06-24 15:28:00 36.94 Frieda Univ ersity of [place] [facility] Respiratory rate 2021-06-24 15:28:00 18 /min Univ ersity of [place] [facility] Body height 2021-06-24 15:28:00 167.6 cm Universi ty of [place] [facility] Body weight 2021-06-24 15:28:00 82.328 kg Universi ty of [place] [facility] BMI 2021-06-24 15:28:00 29.29 kg/m2 Universi ty of [place] [facility] Oxygen saturation in 2021-06-24 15:28:00 98 /min University of Arterial blood by [place] Medi adalberto Pulse oximetry Branch Systolic blood 2021-06-18 16:24:00 127 mm[Hg] Univer sity of pressure [place] [facility] Diastolic blood 2021-06-18 16:24:00 71 mm[Hg] Unive rsity of pressure [place] [facility] Heart rate 2021-06-18 16:24:00 92 /min Universi ty of [place] [facility] Body temperature 2021-06-18 16:24:00 37.33 Frieda Univ ersity of [place] [facility] Respiratory rate 2021-06-18 16:24:00 19 /min Univ ersity of [place] [facility] Body height 2021-06-18 16:24:00 167.6 cm Universi ty of [place] [facility] Body weight 2021-06-18 16:24:00 82.214 kg Universi ty of [place] [facility] BMI 2021-06-18 16:24:00 29.25 kg/m2 Universi ty of [place] [facility] Oxygen saturation in 2021-06-18 16:24:00 99 /min University of Arterial blood by [facility] Pulse oximetry Branch Systolic blood 2021-06-02 18:53:00 126 mm[Hg] Univer sity of pressure [place] [facility] Diastolic blood 2021-06-02 18:53:00 77 mm[Hg] Unive rsity of pressure [place] [facility] Heart rate 2021-06-02 18:53:00 81 /min Universi ty of [place] [facility] Respiratory rate 2021-06-02 18:53:00 19 /min Univ ersity of [place] [facility] Body height 2021-06-02 18:53:00 167.6 cm Universi ty of [place] [facility] Body weight 2021-06-02 18:53:00 81.818 kg Universi ty of [place] [facility] BMI 2021-06-02 18:53:00 29.11 kg/m2 Universi ty of [place] [facility] Oxygen saturation in 2021-06-02 18:53:00 98 /min University of Arterial blood by [place] Medi adalberto Pulse oximetry Branch Systolic blood 2021-05-19 18:44:00 114 mm[Hg] Univer sity of pressure [place] [facility] Diastolic blood 2021-05-19 18:44:00 73 mm[Hg] Unive rsity of pressure [place] [facility] Heart rate 2021-05-19 18:44:00 95 /min Universi ty of [place] [facility] Body temperature 2021-05-19 18:44:00 36.78 Frieda Univ ersity of [place] [facility] Respiratory rate 2021-05-19 18:44:00 18 /min Univ ersity of [place] [facility] Body height 2021-05-19 18:44:00 167.6 cm [facility]i ty [facility] [place] [facility] Body weight 2021-05-19 18:44:00 79.011 kg [facility]i ty [facility] [place] [facility] BMI 2021-05-19 18:44:00 28.11 kg/m2 [facility] ty [facility] [place] [facility] Oxygen saturation in 2021-05-19 18:44:00 98 /min University of Arterial blood by [facility] Pulse oximetry Branch Systolic blood 2021-05-05 18:29:00 125 mm[Hg] Univer sity of pressure [place] [facility] Diastolic blood 2021-05-05 18:29:00 76 mm[Hg] [facility] Heart rate 2021-05-05 18:29:00 81 /min [facility] Body temperature 2021-05-05 18:29:00 37.17 Frieda [facility] Respiratory rate 2021-05-05 18:29:00 18 /min [facility] Body height 2021-05-05 18:29:00 167.6 cm [facility] Body weight 2021-05-05 18:29:00 77.928 kg [facility] BMI 2021-05-05 18:29:00 27.73 kg/m2 [facility] Systolic blood 2021-04-22 15:33:00 132 mm[Hg] [facility] Diastolic blood 2021-04-22 15:33:00 76 mm[Hg] [facility] Heart rate 2021-04-22 15:33:00 89 /min [facility] Respiratory rate 2021-04-22 15:33:00 18 /min [facility] Body height 2021-04-22 15:33:00 167.6 cm [facility] Body weight 2021-04-22 15:33:00 76.771 kg [facility] BMI 2021-04-22 15:33:00 27.32 kg/m2 [facility] Oxygen saturation in 2021-04-22 15:33:00 98 /min [facility] blood by [facility] Pulse oximetry Branch Procedures Procedure Date / Time Performing Clinician Source Performed CBC WITH DIFF 2021-07-23 09:42:00 Fish, [facility] CENTRAL NEURAXIAL BLOCK 2021-07-22 06:04:56 Garrett Dillard [facility] CBC WITH DIFF 2021-07-21 23:59:00 Fish, [facility] HEPATITIS B SURFACE 2021-07-21 23:59:00 Fish, [facility] ANTIGEN [facility] ADC OR SHWETHA ONLY - 2021-07-21 23:59:00 Fish, [facility] RPR [facility] HIV 1/2 AG-AB WITH 2021-07-21 23:59:00 Fish, [facility] REFLEX [facility] HB ABO GROUPING 2021-07-21 23:55:00 [facility] RHO (D) IMMUNE GLOBULIN 2021-07-21 23:55:00 [facility] HOSPITAL ADMISSION 2021-07-21 06:01:00 [facility] FOR 2021-07-18 19:32:30 Doctor Unassigned, No [facility] DI[facility]NOS[facility] AND TREATMENT [facility] ASSIGNMENT OF BENEFITS 2021-07-18 19:31:56 Doctor Unassigned, No [facility] ASSIGNMENT OF BENEFITS 2021-07-18 19:17:37 Doctor Unassigned, No [facility] DME/SUPPLY JUSTIFICATION 2021-07-14 06:01:00 Doctor Unassigned, No [facility] POCT URINALYSIS W/O 2021-07-03 21:50:00 Felipe [facility] DME/SUPPLY JUSTIFICATION 2021-06-26 06:01:00 Doctor Unassigned, No [facility] POCT URINALYSIS W/O 2021-06-24 15:31:00 Mariano Woodn [facility] POCT URINALYSIS W/O 2021-06-18 16:27:00 Kenneth Wood [facility] POCT URINALYSIS W/O 2021-06-02 18:55:00 Felipe Kenneth [facility] TDAP VACCINE, >11 YRS, 2021-05-19 19:11:46 Kenneth Wood [facility] POCT URINALYSIS W/O 2021-05-19 18:47:00 FelipeKenneth [facility] ASSIGNMENT OF BENEFITS 2021-05-06 15:26:04 Doctor Unassigned, No [facility] POCT URINALYSIS W/O 2021-05-05 18:30:00 Felipe Kenneth [facility] POCT URINALYSIS W/O 2021-04-22 15:36:00 Felipe Kenneth [facility] Encounters Start End Encounter Admission Attending Care Care Encounter Source Date/Time Date/Time Type Type Clinicians Facility Department ID 2021-10-17 2021-10-17 Outpatient R KENNETH WOOD [facility] [id number] [facility] 14:[facility] 2021-09-30 2021-09-30 Outpatient R KENNETH WOOD [facility] [id number] Univers 13:30:00 13:30:[facility] 2021-09-23 2021-09-23 Outpatient R KENNETH WOOD [facility] [id number] Univers 08:15:00 08:52:13 [facility] 2021-09-23 2021-09-23 Routine Kenneth Wood [facility] 1.2.840.114 [id number] Univers 08:15:00 08:52:13 MESSI 350.1.13.10 i ty of Visit WOMEN'S 4.2.7.2.686 [facility] [id number] [address] 2021-08-25 2021-08-25 Outpatient R KENNETH WOOD [facility] [id number] Univers 16:15:00 16:15:00 ity of [facility] 2021-08-04 2021-08-04 Outpatient R KENNETH WOOD [facility] [id number] Univers 13:30:00 14:17:44 ity of [facility] 2021-08-04 2021-08-04 Routine Kenneth Wood [facility] 1.2.840.114 [id number] Univers 13:30:00 14:17:44 MESSI 350.1.13.10 i ty of Visit WOMENS 4.2.7.2.686 [facility] [id number] [address] 2021-07-24 2021-07-24 Telephone Kenneth Wood 1.2.840.11 [id number] Univers 00:00:00 00:00:00 MESSI 350.1.13.10 it y of [facility] 4.2.7.2.686 [facility] [id number] [address] 2021-07-21 2021-07-23 Inpatient P KENNETH WOOD [facility] [id number] Univers 17:00:00 15:40:00 ity of [facility] 2021-07-21 2021-07-23 [facility] Kenneth Wood [facility] 1.2.840.114 [id number] Univers 17:00:00 15:40:00 Encounter TAMIKA 350.1.13.10 ity of [place] 4.2.7.2.686 [facility] [id number] [address] 2021-07-21 2021-07-22 [facility] 1.2.840.114 [id number] Univers 23:53:00 07:08:00 Event Garrett LUNDBERG 350.1.13.10 [facility] 4.2.7.2.686 [facility] [id number] [address] 2021-07-21 2021-07-21 Anesthesia Nishant [facility] 1.2.840.114 [id number] Univers 21:00:27 21:00:27 Event Garrett LUNDBERG 350.1.13.10 ity of [place] 4.2.7.2.686 [facility] [id number] [facility] 083 Branch 2021-07-21 2021-07-21 Orders Doctor ANIBAL 1.2.840.114 [id number] Univers 00:00:00 00:00:00 Only Unassigned, DAVEY 350.1.13.10 ity of [place] [facility] 4.2.7.2.686 Ayaz as [id number] [facility] 009 Branch 2021-07-18 2021-07-18 Laboratory Only, Adc Test [facility] 1.2.840. 114 [id number] Univers 13:18:48 13:33:48 Only Kenneth Wood TAMIKA 350.1.13.10 ity of [place] 4.2.7.2.686 [facility] [id number] [facility] 353 Branch 2021-07-18 2021-07-18 Outpatient R KENNETH WOOD [facility] [id number] Univers 13:15:00 13:15:00 ity of [facility] 2021-07-18 2021-07-18 Orders Doctor ANIBAL 1.2.840.114 [id number] Univers 00:00:00 00:00:00 Only Unassigned, DAVEY 350.1.13.10 ity of [place] [facility] 4.2.7.2.686 Ayaz as [id number] [facility] 009 Wendel 2021-07-17 2021-07-17 Outpatient R KENNETH WOOD [facility] [id number] Univers 15:30:00 15:54:49 ity of [facility] 2021-07-17 2021-07-17 Routine Kenneth Wood [facility] 1.2.840.114 [id number] Univers 15:13:26 15:54:49 MESSI 350.1.13.10 i ty of Visit WOMEN'S 4.2.7.2.686 [facility] [id number] [facility] 134 Branch 2021-07-14 2021-07-14 Telephone Kenneth Wood [facility] 1.2.840.11 [id number] Univers 00:00:00 00:00:00 MESSI 350.1.13.10 it [place] [facility] [id number] [address] 2021-07-14 2021-07-14 Orders Doctor ANIBAL 1.2.840.114 [id number] Univers 00:00:00 00:00:00 Only Unassigned, DAVEY 350.1.13.10 ity of [place] [facility] 4.2.7.2.686 Ayaz as [id number] [address] 2021-07-08 2021-07-08 Routine FishKenneth [facility] 1.2.840.114 [id number] Univers 15:16:42 16:14:36 MESSI 350.1.13.10 i ty [place] [facility] [id number] [address] 2021-07-08 2021-07-08 Outpatient R KENNETH WOOD [facility] [id number] Univers 15:15:00 16:14:36 ity of [facility] 2021-07-03 2021-07-03 Routine FishKenneth [facility] 1.2.840.114 [id number] Univers 14:59:33 16:06:04 MESSI 350.1.13.10 i ty [place] [place] [facility] [id number] [address] 2021-07-03 2021-07-03 Outpatient R KENNETH WOOD [facility] [id number] Univers 14:45:00 16:06:04 ity of [facility] 2021-06-26 2021-06-26 Orders Doctor ANIBAL 1.2.840.114 [id number] Univers 00:00:00 00:00:00 Only Unassigned, DAVEY 350.1.13.10 ity of [place] [facility] 4.2.7.2.686 Ayaz as [id number] [address] 2021-06-24 2021-06-24 Routine FishKenneth [facility] 1.2.840.114 [id number] Univers 09:23:01 10:01:58 MESSI 350.1.13.10 i [place] [facility] [id number] [address] 2021-06-24 2021-06-24 Outpatient R KENNETH WOOD [facility] [id number] Univers 09:15:00 10:01:[address] [facility] 2021-06-19 2021-06-19 Telephone Kenneth Wood 1.2.840.11 [id number] Univers 00:00:00 00:00:00 MESSI 350.1.13.10 it [place] [facility] [id number] [address] 2021-06-18 2021-06-18 Outpatient R KENNETH WOOD [facility] [id number] Univers 11:00:00 11:50:[address] [facility] 2021-06-18 2021-06-18 Routine Kenneth Wood [facility] 1.2.840.114 [id number] Univers 10:59:05 11:50:06 MESSI 350.1.13.10 i ty [place] [place] [facility] [id number] [address] 2021-06-16 2021-06-16 Outpatient R KENNETH WOOD [facility] [id number] Univers 11:00:00 11:00:[address] [facility] 2021-06-02 2021-06-02 Routine Kenneth Wood [facility] 1.2.840.114 [id number] Univers 13:45:41 14:03:35 Messi 350.1.13.10 i ty of Visit [facility] [place] [id number] [address] 2021-06-02 2021-06-02 Outpatient R KENNETH WOOD [facility] [id number] Univers 13:30:00 13:30:[address] [facility] 2021-05-21 2021-05-21 Refill Kenneth Wood [facility] [place] 1.2.840.114 [id number] Univers 00:00:00 00:00:00 Messi 350.1.13.10 it y of [facility] 4.2.7.2.686 [facility] [id number] [address] 2021-05-19 2021-05-19 Routine Kenneth Wood 1.2.840.114 [id number] Univers 13:36:18 14:15:21 Messi 350.1.13.10 i ty [place] [facility] [place] [id number] [address] 2021-05-19 2021-05-19 Outpatient R KENNETH WOOD [facility] [id number] Univers 13:30:00 13:30:[address] [facility] 2021-05-06 2021-05-06 Outpatient R KENNETH WOOD [facility] [id number] Univers 11:15:00 11:15:[address] [facility] 2021-05-06 2021-05-06 Curve Saw Operator Pily, Oksana Lab Main [facility] 1.2.8 40.114 [id number] Univers 10:27:20 10:42:20 Visit Kenneth Wood 350.1.13.10 [place] [id number] Or dical nal [facility] 2021-05-06 2021-05-06 Orders Doctor ANIBAL 1.2.840.114 [id number] Univers 00:00:00 00:00:00 Only Unassigned, DAVEY 350.1.13.10 ity of [place] [facility] 4.2.7.2.686 Ayaz as [id number] [address] 2021-05-05 2021-05-05 Routine Kenneth Wood [facility] 1.2.840.114 [id number] Univers 12:52:05 13:54:58 Messi 350.1.13.10 i ty of Visit [facility] [place] [id number] [address] 2021-05-05 2021-05-05 Outpatient R KENNETH WOOD [facility] [id number] Univers 13:15:00 13:15:00 ity of [facility] 2021-04-22 2021-04-22 Routine Kenneth Wood [facility] 1.2.840.114 [id number] Univers 10:17:38 11:07:22 Messi 350.1.13.10 i ty of Visit Women's 4.2.7.2.686 [facility] [id number] [address] 2021-04-22 2021-04-22 Outpatient R KENNETH WOOD [facility] [id number] Univers 10:30:00 10:30:[address] [facility] 2021-03-25 2021-03-25 Outpatient R KENNETH WOOD [facility] [id number] Univers 09:45:00 09:45:[address] [facility] 2021-03-06 2021-03-06 Outpatient R [facility] [id number] Univers 09:00:00 09:00:[address] [facility] 2021-02-27 2021-02-27 Outpatient R KENNETH WOOD [facility] [id number] Univers 13:00:00 13:00:[address] [facility] 2021-01-30 2021-01-30 Outpatient R KENNETH WOOD [facility] [id number] Univers [facility]:00[facility] 2021-01-02 Outpatient R KENNETH WOOD [facility] [id number] Univers 11:00:00 11:00:[address] [facility] 2020-12-12 2020-12-12 Outpatient R KENNETH WOOD [facility] [id number] Univers 08:45:00 08:45:[address] [facility] 2020-12-05 2020-12-05 Outpatient R KENNETH WOOD [facility] [id number] Univers 08:30:00 08:30[facility] 2020-11-25 2020-11-25 Outpatient R KENNETH WOOD [facility] [id number] Univers 09:30:00 [facility] Results Test Description Test Time Test Comments [...] L [Au tomated message] The system which ge [...] 31.8 g/dL 31.6-35.1 RDW-SD (test code = 01203-4) 43.9 fL 39.0-49.9 RDW-CV (test code = 788-0) 14.0 % 12.0-15.5 PLT (test code = 777-3) See_Comment [Au tomated message] The system which ge nerated this result transmit yanna reference range: 166 - 35 8 10*3/?L. The reference range was not used to interpret th is result as normal/abnormal . MPV (test code = 60142-8) 10.6 fL 9.5-12.9 NRBC/100 WBC (test code = See_Comment [ Automated message] The 7704804710) system which ge nerated this result transmit yanna reference range: 0.0 - 10 .0 /100 WBCs. The reference r adilene was not used to interpr et this result as normal/abnor mal. NRBC x10^3 (test code = <0.01 See_Comment [Au tomated message] The 1755611590) system which ge nerated this result transmit yanna reference range: 10*3/?L. The reference range was not u sed to interpret this result as normal/abnormal . GRAN MAT (NEUT) % (test code 73.0 % = 770-8) IMM GRAN % (test code = 0.50 % 6227489757) LYMPH % (test code = 736-9) 18.5 % MONO % (test code = 5905-5) 5.3 % EOS % (test code = 713-8) 2.3 % BASO % (test code = 706-2) 0.4 % GRAN MAT x10^3(ANC) (test 8.06 10*3/uL 1.88-7.09 H code = 7055394997) IMM GRAN x10^3 (test code = 0.06 10*3/uL 0.00-0.06 7095026477) LYMPH x10^3 (test code = 2.04 10*3/uL 1.32-3.29 731-0) MONO x10^3 (test code = 0.58 10*3/uL 0.33-0.92 742-7) EOS x10^3 (test code = 0.25 10*3/uL 0.03-0.39 711-2) BASO x10^3 (test code = 0.04 10*3/uL 0.01-0.07 704-7) Lab Interpretation (test Abnormal code = 53040-5) [facility] IMMUNE [id number] 13:55:37 Test Item Value Reference Range Interpretation Comments RHIG CANDIDATE? No- see comment Patient i s not a (test code = candidate for R [facility]- 5055) Patient is Rh Positive.Perfor med at [facility] Laboratory Services - [facility] Blood [address] [place] [id number] Free: [phone] A No. [id number] [facility] HospitalHepatitis B Surface [id number] 08:23:38 Test Item Value Reference Range Interpretation Comments HBsAg Semi-Quantitative (test code = Negative Negative 5195-3) [facility] OR SHWETHA ONLY - [id number] 07:20:06 Test Item Value Reference Range Interpretation Comments RPR (Qualitative) (test code = Nonreactive Nonreactive 32962-0) Lab Interpretation (test code = Normal 93149-5) [facility] HospitalHIV 1/2 AG-AB WITH [id number] 01:28:25 Test Item Value Reference Range Interpretation Comments HIV Negative Negative Semi-quantitative (test code = 53552-0) ILIANA (test code = Non-reactive for HIV-1 ILIANA) antigen and HIV-1/HIV-2 antibodies. ?No laboratory evidence of HIV infection. ?Repeat in 2-4 weeks if acute HIV infection is suspected. [facility] HospitalType and Screen - ONCE [id number] 01:04:35 Test Item Value Reference Range Interpretation Comments ABO & RH (test code A Positive Performe d at [facility] = 20) Laboratory Serv [facility] Blood Bank[address] [place] [address] Free: [phone] A No. [id number] IAT (test code = Negative Performed a t [facility] 1185) Laboratory Serv [facility] Blood [address] [place], [place] [address]Toll Free: [phone] A No. [id number] [facility] HospitalCBC with [id number] 00:35:16 Test Item Value Reference Range Interpretation Comments WBC (test code = See_Comment [Automated message] 6690-2) The system [employer] generated this result transmitted ref erence range: 4.30 - 1 1.10 10*3/?L. The re ference range was not u sed to interpret this result as normal/abnor mal. RBC (test code = See_Comment [Automated message] 789-8) The system [employer] generated this result transmitted ref erence range: [...] RDW-SD (test code 42.9 fL 39.0-49.9 = 90673-1) RDW-CV (test code 13.7 % 12.0-15.5 = 788-0) PLT (test code = See_Comment [Automated message] 777-3) The system whic h generated this result transmitted ref erence range: 166 - 35 8 10*3/?L. The re ference range was not u sed to interpret this result as normal/abnor mal. MPV (test code = 10.8 fL 9.5-12.9 19014-1) NRBC/100 WBC (test See_Comment [Automat ed message] code = 0998563137) The syste m which generated this result transmitted ref erence range: 0.0 - 10 .0 /100 WBCs. The refer ence range was not u sed to interpret this result as normal/abnor mal. NRBC x10^3 (test <0.01 See_Comment [Automated message] code = 8661162563) The syste m which generated this result transmitted ref erence range: 10*3/?L. The reference range was not used to interpr et this result as normal/abnormal . GRAN MAT (NEUT) % 75.2 % (test code = 770-8) IMM GRAN % (test 0.50 % code = 2722170431) LYMPH % (test code 15.7 % = 736-9) MONO % (test code 5.8 % = 5905-5) EOS % (test code = 2.6 % 713-8) BASO % (test code 0.2 % = 706-2) GRAN MAT 6.49 10*3/uL 1.88-7.09 x10^3(ANC) (test code = 4529507662) IMM GRAN x10^3 0.04 10*3/uL 0.00-0.06 (test code = 8959513709) LYMPH x10^3 (test 1.35 10*3/uL 1.32-3.29 code = 731-0) MONO x10^3 (test 0.50 10*3/uL 0.33-0.92 code = 742-7) EOS x10^3 (test 0.22 10*3/uL 0.03-0.39 code = 711-2) BASO x10^3 (test <0.03 0.01-0.07 code = 704-7) [facility] URINALYSIS W/O SPECIFIC [id number] 21:50:00 Test Item Value Reference Range Interpretation [...] Negative Lab Interpretation (test code = Normal 65680-3) [facility] URINALYSIS W/O SPECIFIC [id number] 15:31:00 Test Item Value Reference Range Interpretation [...] Negative Lab Interpretation (test code = Normal 89246-4) [facility] URINALYSIS W/O SPECIFIC [id number] 16:27:00 Test Item Value Reference Range Interpretation [...] Negative Lab Interpretation (test code = Normal 39335-3) [facility] URINALYSIS W/O SPECIFIC [id number] 18:55:00 Test Item Value Reference Range Interpretation [...] Negative Lab Interpretation (test code = Normal 49328-7) [facility] URINALYSIS W/O SPECIFIC [id number] 18:47:00 Test Item Value Reference Range Interpretation [...] Negative Lab Interpretation (test code = Normal 17459-1) [facility] URINALYSIS W/O SPECIFIC [id number] 18:30:00 Test Item Value Reference Range Interpretation [...] Negative Lab Interpretation (test code = Normal 61319-3) [facility] HospitalPO[facility] W/O SPECIFIC [id number] 15:36:00 Test Item Value Reference Range Interpretation [...] Negative Lab Interpretation (test code = Normal 67221-3) [facility]
[2023-02-19] MEDS ORDERED: ONDANSETRON 4 MG/2 ML VIAL ONE (14:33)
[2023-02-19] MEDS ORDERED: HYDROMORPHONE HCL 1 MG/ML INJ ONE ×2 (14:33→16:29)
[2023-02-19 14:39] LABS: Absolute Lymphocytes (CBC) 1.1 K/uL (0.7-4.9); Lymphocytes % 7.9 % (15.3-44.8); MCV 89.9 fL (80-100); MPV 8.1 fL (7.6-11.3)
[2023-02-19 14:57] LABS: Albumin 4.7 g/dL (3.4-5.0); Bilirubin Total 0.6 mg/dL (0.2-1.0); Potassium 3.3 mEq/L (3.5-5.1); Protein, Total 8.8 g/dL (6.4-8.2)
[2023-02-19 15:03] LABS: Blood Morphology Comment NOT SEEN (NOT SEEN); Platelet Estimate ADEQ; White Blood Cell Scan OK (OK)
[2023-02-19 16:21] LABS: Specific Gravity > 1.030 (1.005-1.030)
[2023-02-19 16:30] LABS: Specific Gravity > 1.030 (1.005-1.030); Urine Bacteria <20 /HPF (<20); Urine Bilirubin NEGATIVE (Negative); Urine Blood Trace (Negative); Urine Clarity Turbid (Clear); Urine Color Yellow (Yellow); Urine Glucose NEGATIVE (Negative); Urine Mucus 1+ /HPF (None Seen); Urine Protein 2+ (Negative); Urine Urobilinogen Normal (Normal)
--- NOTE | 2023-02-19 17:40 | RAD REPORT ---
EXAM DESCRIPTION: CT - Abdomen Pelvis W Contrast - 02/19/2023 5:12 pm CLINICAL HISTORY: ABD PAIN COMPARISON: No comparisons TECHNIQUE: Thin cut axial CT imaging of the abdomen and pelvis was performed following intravenous a dministration of 100 mL Isovue 300. Multiplanar reformats were generated and reviewed. All CT scans are performed using dose optimization technique as appropriate and may include automated exposure control or mA/KV adjustment according to patient size. FINDINGS: No suspicious findings in the lung bases. The liver, spleen, and pancreas show no suspicious findings. Gallbladder and biliary tree are also wi thout suspicious finding. Symmetric renal function is seen with no hydronephrosis or suspicious renal mass. No dilated bowel loops or bowel wall thickening. No free air, free fluid or inflammatory stranding. N o hernia, mass or bulky lymphadenopathy. The urinary bladder is suboptimally distended, without signi ficant finding. No suspicious bony findings. IMPRESSION: No acute intra-abdominal process.
--- NOTE | 2023-02-19 17:42 | ER ---
Nurse's Notes [facility] Name: Neelima Nix Age: 22 yrs Sex: Female : 2000 Arrival Date: 02/19/2023 Time: 14:11 Bed 16 Private MD: Diagnosis: Gastroenteritis Presentation: 02/19 14:17 Chief complaint: EMS states: abdominal pain and n/v/d started this morning. Coronavirus eh3 screen: Vaccine status: Patient reports receiving the 2nd dose of the covid vaccine. Ebola Screen: No symptoms or risks identified at this time. Initial Sepsis Screen: Does the patient meet any 2 criteria? No. Patient's initial sepsis screen is negative. Does the patient have a suspected source of infection? No. Patient's initial sepsis screen is negative. Risk Assessment: Do you want to hurt yourself or someone else? Patient reports no desire to harm self or others. Onset of symptoms was February 19, 2023. 14:17 Method Of Arrival: EMS: [place] [id number] 14:17 Acuity: MACI 3 3 14:17 Care prior to arrival: Medication(s) given: Normal saline infusion, 500 mL, zofran 4 eh3 mg, IV initiated. 20 GA, in the right antecubital area. Triage Assessment: 14:19 General: Appears distressed, uncomfortable, Behavior is cooperative, restless. Pain: eh3 Complains of pain in abdomen. Neuro: Level of Consciousness is awake, alert, obeys commands, Oriented to person, place, time, situation. Cardiovascular: Capillary refill < 3 seconds Patient's skin is warm and dry. Respiratory: Airway is patent Respiratory effort is even, unlabored, Respiratory pattern is regular, symmetrical. GI: Abdomen is round non-distended, Reports lower abdominal pain, upper abdominal pain, diarrhea, nausea, vomiting. Derm: Skin is healthy with good turgor. Musculoskeletal: Circulation, motion, and sensation intact. 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 - Social history:: Smoking status: unknown. Screenin:20 [facility] ED Fall Risk Assessment (Adult) Score/Fall Risk Level 0 - 2 = Low Risk. Abuse eh3 screen: Denies threats or abuse. Denies injuries from another. Nutritional screening: No deficits noted. Tuberculosis screening: No symptoms or risk factors identified. Assessment: 14:20 Reassessment: No changes from previously documented assessment. See triage assessment. 3 14:20 GI: Bowel sounds present X 4 quads. Abd is soft X 4 quads Abdomen is tender to eh3 palpation X 4 quads. 15:00 Reassessment: Patient appears in no apparent distress at this time. Patient and/or 3 family updated on plan of care and expected duration. Pain level reassessed. Patient is alert, oriented x 3, equal unlabored respirations, skin warm/dry/pink. Patient states symptoms have improved. 16:00 Reassessment: Patient appears in no apparent distress at this time. Patient and/or 3 family updated on plan of care and expected duration. Pain level reassessed. Patient is alert, oriented x 3, equal unlabored respirations, skin warm/dry/pink. 17:00 Reassessment: Patient appears in no apparent distress at this time. Patient and/or 3 family updated on plan of care and expected duration. Pain level reassessed. Patient is alert, oriented x 3, equal unlabored respirations, skin warm/dry/pink. 18:00 Reassessment: Patient appears in no apparent distress at this time. Patient and/or 3 family updated on plan of care and expected duration. Pain level reassessed. Patient is alert, oriented x 3, equal unlabored respirations, skin warm/dry/pink. 19:19 Reassessment: Patient appears in no apparent distress at this time. Patient states kl feeling better. Patient states symptoms have improved. Vital Signs: 14:17 BP 107 / 65; Pulse 78; Resp 15; Temp 97.9; Pulse Ox 100% ; Weight 70.76 kg; Height 5 eh3 ft. 6 in. ; Pain 10/10; 15:00 BP 111 / 71; Pulse 62; Resp 17; Pulse Ox 100% on R/A; eh3 16:00 BP 100 / 67; Pulse 68; Resp 15; Pulse Ox 100% on R/A; eh3 17:00 BP 131 / 78; Pulse 56; Resp 16; Pulse Ox 99% on R/A; eh3 18:00 BP 130 / 72; Pulse 58; Resp 16; Pulse Ox 99% on R/A; eh3 19:19 BP 122 / 78; Pulse 85; Resp 16; Pulse Ox 100% on R/A; kl 14:17 Body Mass Index 25.18 (70.76 kg, 167.64 cm) eh3 14:17 Pain Scale: Adult 3 ED Course: 14:16 Patient arrived in ED. sp3 14:16 Dayana Herrera MD is Attending Physician. sp3 14:17 Mica Soto, ISABEL is Primary Nurse. eh3 14:18 Triage completed. eh3 14:19 Arm band placed on. eh3 14:20 Patient has correct armband on for positive identification. Bed in low position. Call 3 light in reach. Side rails up X2. Adult w/ patient. Client placed on continuous cardiac and pulse oximetry monitoring. NIBP monitoring applied. Door closed. Noise minimized. Warm blanket given. 14:20 Maintain EMS IV. Dressing intact. Good blood return noted. Site clean \T\ dry. Gauge \T\ eh 3 site: 20g RAC. 15:19 Radiology exam delayed due to test not completed at this time. [id number] 16:08 Urinalysis w/ reflexes Sent. ll1 16:08 Test, Urine Sent. ll1 17:14 CT Abd/Pelvis - IV Contrast Only In Process Unspecified. EDMS 17:34 Hugo Amato PA is PHCP. cp 19:20 No provider procedures requiring assistance completed. IV discontinued, intact, kl bleeding controlled, No redness/swelling at site. Pressure dressing applied. Administered Medications: 14:22 Drug: Ondansetron IVP 4 mg Route: IVP; Site: right antecubital; eh3 15:15 Follow up: Response: No adverse reaction; Nausea is decreased eh3 14:22 Drug: HYDROmorphone IVP 1 mg Route: IVP; Site: right antecubital; eh3 15:15 Follow up: Response: No adverse reaction; Pain is decreased eh3 16:36 Drug: HYDROmorphone IVP 1 mg Route: IVP; Site: right antecubital; eh3 17:15 Follow up: Response: No adverse reaction; Pain is decreased eh3 17:44 Drug: NS 0.9% IV 1000 ml Route: IV; Rate: 1 bolus; Site: right antecubital; hb Medication: 19:20 VIS not applicable for this client. Outcome: 17:42 Discharge ordered by . sp3 19:20 Discharged to home ambulatory. 19:20 Condition: improved 19:20 Discharge instructions given to patient, Instructed on discharge instructions, follow up and referral plans. medication usage, Demonstrated understanding of instructions, follow-up care, medications, Prescriptions given X 2. 19:20 Patient left the ED. Signatures: Dispatcher [employer] EDMS Vanessa Schmid RN RN Hugo Rocha PA PA cp Baxter, Heather, RN RN Amarilis Schmid RN RN 1 Dayana Herrera MD MD sp3 Mica Soto RN RN 3 Neeta Oakes [email or web address] Corrections: (The following items were deleted from the chart) 14:22 14:17 Onset of symptoms was February 19, 2023 [place] [address] 18:31 17:00 BP 100 / 67; Pulse 68bpm; Resp 15bpm; Pulse Ox 100% RA; [place] [id number]
--- NOTE | 2023-02-19 17:42 | EDPHYS ---
Physician Documentation [facility] Name: Neelima Nix Age: 22 yrs Sex: Female : 2000 Arrival Date: 02/19/2023 Time: 14:11 Bed 16 Private MD: ED Physician Dayana Herrera HPI: 02/19 14:18 This 22 yrs old Black Female presents to ER via Unassigned with complaints of Abdominal sp3 Pain, Nausea/Vomiting/Diarrhea. 14:18 22-year-old female with no past medical history presents with 1 day history of diffuse sp3 abdominal pain, nausea, vomiting, diarrhea. She denies any potential poor food intake, denies any other sick family members, denies blood or mucus in her emesis or stool. She also denies fever, headache, neck pain, chest pain, shortness of breath, back pain, rash, syncope, near syncope, neurological deficit, travel history, or any other signs or symptoms on ROS at this time. Pain is described as diffuse and cramping in nature. LMP was 2 weeks ago and patient is on oral contraception and denies that she is . She also denies any dysuria, symptoms, DOBBY LOOMS PEGGER symptoms, or any other related complaints.. 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 - Social history:: Smoking status: unknown. ROS: 14:19 Constitutional: Negative for fever, chills, and weight loss, Eyes: Negative for injury, sp3 pain, redness, and discharge, ENT: Negative for injury, pain, and discharge, Neck: Negative for injury, pain, and swelling, Cardiovascular: Negative for chest pain, palpitations, and edema, Respiratory: Negative for shortness of breath, cough, wheezing, and pleuritic chest pain, Back: Negative for injury and pain, : Negative for injury, bleeding, discharge, and swelling, MS/Extremity: Negative for injury and deformity, Skin: Negative for injury, rash, and discoloration, Neuro: Negative for headache, weakness, numbness, tingling, and seizure, Psych: Negative for depression, anxiety, suicide ideation, homicidal ideation, and hallucinations, Allergy/Immunology: Negative for hives, rash, and allergies, Endocrine: Negative for neck swelling, polydipsia, polyuria, polyphagia, and marked weight changes. 14:19 All other systems are negative. Exam: 14:19 Constitutional: This is a well developed, well nourished patient who is awake, alert, sp3 and in no acute distress. Head/Face: Normocephalic, atraumatic. Eyes: Pupils equal round and reactive to light, extra-ocular motions intact. Lids and lashes normal. Conjunctiva and sclera are non-icteric and not injected. Cornea within normal limits. Periorbital areas with no swelling, redness, or edema. ENT: Nares patent. No nasal discharge, no septal abnormalities noted. External auditory canals are clear. Oropharynx with no redness, swelling, or masses, exudates, or evidence of obstruction, uvula midline. Mucous membranes moist. Neck: Trachea midline, no thyromegaly or masses palpated, and no cervical lymphadenopathy. Supple, full range of motion without nuchal rigidity, or vertebral point tenderness. No Meningismus. Chest/axilla: Normal chest wall appearance and motion. Nontender with no deformity. No lesions are appreciated. Cardiovascular: Regular rate and rhythm with a normal S1 and S2. No gallops, murmurs, or rubs. Normal PMI, no JVD. No pulse deficits. Respiratory: Lungs have equal breath sounds bilaterally, clear to auscultation and percussion. No rales, rhonchi or wheezes noted. No increased work of breathing, no retractions or nasal flaring. Back: No spinal tenderness. No costovertebral tenderness. Full range of motion. Skin: Warm, dry with normal turgor. Normal color with no rashes, no lesions, and no evidence of cellulitis. MS/ Extremity: Pulses equal, no cyanosis. Neurovascular intact. Full, normal range of motion. Neuro: Awake and alert, GCS 15, oriented to person, place, time, and situation. Cranial nerves II-XII grossly intact. Motor strength 5/5 in all extremities. Sensory grossly intact. Cerebellar exam normal. Normal gait. Psych: Awake, alert, with orientation to person, place and time. Behavior, mood, and affect are within normal limits. 14:19 Abdomen/GI: Diffuse pain to palpation sharp in nature without peritoneal signs.. Vital Signs: 14:17 BP 107 / 65; Pulse 78; Resp 15; Temp 97.9; Pulse Ox 100% ; Weight 70.76 kg; Height 5 eh3 ft. 6 in. ; Pain 10/10; 15:00 BP 111 / 71; Pulse 62; Resp 17; Pulse Ox 100% on R/A; eh3 16:00 BP 100 / 67; Pulse 68; Resp 15; Pulse Ox 100% on R/A; eh3 17:00 BP 131 / 78; Pulse 56; Resp 16; Pulse Ox 99% on R/A; eh3 18:00 BP 130 / 72; Pulse 58; Resp 16; Pulse Ox 99% on R/A; eh3 19:19 BP 122 / 78; Pulse 85; Resp 16; Pulse Ox 100% on R/A; kl 14:17 Body Mass Index 25.18 (70.76 kg, 167.64 cm) [facility] 14:17 Pain Scale: Adult eh3 MDM: 14:16 Patient medically screened. sp3 14:19 Data reviewed: vital signs, nurses notes, EMS record, lab test result(s), radiologic sp3 studies. ED course: 22-year-old female with diffuse abdominal pain for 1 day. Differential diagnosis is broad and includes foodborne illness, enteritis, gastroenteritis, appendicitis, biliary pathology, among others. I am not highly suspicious for his mesenteric ischemia, pathology, DOBBY LOOMS PEGGER pathology, MSK pathology, sepsis, shock or any other critical diagnoses at this time. Work-up will include laboratory values, CT scan of the abdomen and pelvis, urinalysis with test. Patient will be given normal saline, Dilaudid, Zofran IV for symptomatic treatment. Disposition to be determined based on patient course and work-up with possible observation/admission versus discharge depending on final outcome.. 17:41 ED course: Patient feeling better after pain medication and IV fluids. CT scan sp3 demonstrates no acute abnormality. Laboratory values are normal except for elevated WBC count. We will discharge patient safely home on Cipro and Flagyl p.o. follow-up to PCP.. 02/19 14:17 Order name: CBC with Diff; Complete Time: 16:06 sp3 02/19 14:17 Order name: CMP; Complete Time: 16:06 sp3 02/19 14:17 Order name: Lipase; Complete Time: 16:06 sp3 02/19 14:17 Order name: Test, Urine; Complete Time: 17:05 sp3 02/19 14:17 Order name: Urinalysis w/ reflexes; Complete Time: 17:05 sp3 02/19 14:45 Order name: CBC Smear Scan; Complete Time: 16:06 EDMS 02/19 14:17 Order name: CT Abd/Pelvis - IV Contrast Only; Complete Time: 17:40 sp3 02/19 14:17 Order name: IV Saline Lock; Complete Time: 14:21 sp3 02/19 14:17 Order name: Labs collected and sent; Complete Time: 14:37 sp3 Administered Medications: 14:22 Drug: Ondansetron IVP 4 mg Route: IVP; Site: right antecubital; eh3 15:15 Follow up: Response: No adverse reaction; Nausea is decreased eh3 14:22 Drug: HYDROmorphone IVP 1 mg Route: IVP; Site: right antecubital; eh3 15:15 Follow up: Response: No adverse reaction; Pain is decreased eh3 16:36 Drug: HYDROmorphone IVP 1 mg Route: IVP; Site: right antecubital; eh3 17:15 Follow up: Response: No adverse reaction; Pain is decreased eh3 17:44 Drug: NS 0.9% IV 1000 ml Route: IV; Rate: 1 bolus; Site: right antecubital; hb Disposition Summary: 02/19/23 17:42 Discharge Ordered Location: Home sp3 Condition: Stable sp3 Diagnosis - Gastroenteritis sp3 Followup: sp3 - With: Private Physician - When: Upon discharge from the Emergency Department - Reason: Continuance of care Discharge Instructions: - Discharge Summary Sheet sp3 - Diarrhea, Adult sp3 Forms: - Medication Reconciliation Form sp3 - Thank You Letter sp3 - Antibiotic Education sp3 - Prescription Opioid Use sp3 - [email or web address] sp3 Prescriptions: - Cipro 500 mg Oral Tablet - take 1 tablet by ORAL route every 12 hours for 7 days; 14 tablet; Refills: 0, sp3 Product Selection Permitted - Flagyl 500 mg Oral Tablet - take 1 tablet by ORAL route every 8 hours for 10 days; 21 tablet; Refills: 0, sp3 Product Selection Permitted Signatures: Dispatcher [employer] EDHugo Philippe PA PA cp Baxter, Heather, RN RN hb Dayana Herrera MD MD sp3 Mica Soto RN RN eh3
[2023-02-19] MEDS ORDERED: NA CHLORIDE 0.9% 0 ML ONE (18:18)
[2023-02-19] MEDS ORDERED: NA CHLORIDE 0.9% 100 ML ONE (18:23)
[2023-02-19] MEDS ORDERED: NA CHLORIDE 0.9% 500 ML ONE (18:34)
[2023-02-19 19:30] VITALS: TEMP 97.9
[2023-02-19 19:37] VITALS: BP 122/78; O2SAT 100
== END 2023-02-19 19:20 | disposition home or self-care (01) ==
LOC: ER 14:11
DX: K52.9 Noninfective gastroenteritis and colitis, unspecified (principal)
CPT/HCPCS: 85025; 81001; 36415; 81025; 83690; 80053; 74177; 96375; 96374; 99285; Q9967; J1170 ×2; J2405; J7040; J7030

== ENCOUNTER → 2023-10-08 | Emergency (ER) | payer BC, OTHER ==
[~2023-10-08] MED LIST: CIPROFLOXACIN HCL 500 MG TAB ONE; FAMOTIDINE 20 MG/2 ML VIAL IV ONE; MORPHINE 4 MG/ML SYR ONE; NA CHLORIDE 0.9% 1,000 ML ONE; NA CHLORIDE 0.9% 100 ML ONE; ONDANSETRON 4 MG/2 ML VIAL ONE; PROMETHAZINE INJ 25 MG/ML AMP ONE; metroNIDAZOLE 500 MG TABLET ONE
--- OUTSIDE RECORDS SUMMARY | 2023-10-08 10:02 | XMS REPORT | Continuity of Care Document ---
Author Name Unknown Address [address] [facility] [address] [place] [address] [facility] thconnect Address [address] [facility] 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 Role Phone KENNETH WOOD Primary Care Physician Unavailab le KODAK_GCBZW_Melly_Jet Attending Clinician Unavaila KENNETH Astudillo Attending Clinician Unavailable Kenneth Wood MD Attending Clinician [phone] Garrett Dillard MD Attending Clinician [phone] Doctor Unassigned, [place] Attending Clinician U navailable Only, Adc Test Attending Clinician Unavailable Pob, [facility] Main Attending Clinician Unavailabl e KODAK_GCBZW_Melly_S Admitting Clinician UnavailKENNETH Jackson Admitting Clinician Unavailable Kenneth Wood MD Admitting Clinician [phone] Payers Payer Name Policy Type Policy Number Effective Date Expirati on Date Source ADMINISTRATIVE CONCEPTS - [facility] (INDEMNITY) [id number] [place] [id number] 2020 00:00:[place] [id number] 2020 00:00:00 [place] OUT [place] STATE [id number] 2020 00:00:00 [facility] MED[facility] [id number] 2021 00:00:00 [facility] [id number] 00:00:00 [place] [id number] 2020 00:00:00 [facility] [id number] 2019 00:00:00 Problems Condition Name Condition Details Condition Category Status Onset Date Resolution Date Last Treatment Date Treating Clinician Comments Source Chlamydial infection Chlamydial Infection Problem Active 1-18 00:00: 00 [facility] Herpes simplex Herpes Simplex Problem Active 7-26 00:00: 00 [facility] Active immunizati on Active Immunizati on Problem Active 6-02 00:00: 00 [facility] Irregular periods Irregular Periods Problem Active 1-13 00:00: 00 [facility] care and examinatio n immediatel y after delivery care and examinatio n immediatel y after delivery Disease Active 2020-08 2-20 00:00: 00 [facility] Liveborn, born in hospital Liveborn, born in hospital Disease Active 2020-08 2-07 00:00: 00 [facility] Encounter for elective induction of labor Encounter for elective induction of labor Disease Active 2020-08 2-06 00:00: 00 [facility] Dry skin Dry skin Disease Active 9-08 00:00: 00 [facility] Supervisio n of high risk in third trimester Supervisio n of high risk in third trimester Disease Active 8-10 00:00: 00 [facility] Screening for genetic disease carrier status Screening for genetic disease carrier status Disease Active 6-17 00:00: 00 [facility] Underweigh t Underweigh t Disease Active 5-23 00:00: 00 [facility] Chlamydia trachomati s infection of lower genitourin ruslan sites Chlamydia trachomati s infection of lower genitourin ruslan sites Disease Active 4-30 00:00: 00 [facility] Missed menses Missed menses Disease Active 4-12 00:00: 00 [facility] Allergies, Adverse Reactions, Alerts Allergy Name Allergy Type Status Severity Reaction(s) Onset Date Inactive Date Treating Clinician Comments Source NO KNOWN ALLERGIE S Drug Class Active [facility] Social History Social Habit Start Date Stop Date Quantity Comments Source ASSERTION 2020-11-01 00:00:00 [facility] Exposure to SARS-CoV-2 (event) Not sure [facility] Alcohol intake 2021-09-23 00:00:00 2021-09-23 00:00:00 Ex-drinker (finding) [facility] Tobacco use and exposure 2020-11-25 00:00:00 2020-11-25 00:00:00 Never used [facility] Sex Assigned At 2000 00:00:00 2000 00:00:00 [facility] Smoking Status Start Date Stop Date Source Never Smoker [facility] Medications Ordered Medication Name Filled Medication Name Start Date Stop Date Current Medication? Ordering Clinician Indication Dosage Frequency Signature (SIG) Comments Components Source Depo-Amplifier Mechanic a 150 mg/mL intramuscul ar suspensionI nject 1 mL every 3 months by intramuscul ar route. Depo-Amplifier Mechanic a 150 mg/mL intramuscul ar suspensionI nject 1 mL every 3 months by intramuscul ar route. 10-04 08:56: 22 No Depo-Prove ra 150 mg/mL intramuscu lar suspension Inject 1 mL every 3 months by intramuscu lar route. [facility] valacyclovi r 500 mg tablet Take 1 tablet twice a day by oral route for 5 days. valacyclovi r 500 mg tablet Take 1 tablet twice a day by oral route for 5 days. 09-09 00:00: 00 No 1 BID valacyclov ir 500 mg tablet Take 1 tablet twice a day by oral route for 5 days. [facility] miSOPROStoL 200 mcg tablet 09-23 00:00: 00 09-25 05:59 :00 No [id number] 200ug Take 1 tablet by mouth 2 (two) times daily for 1 day. Take the night before and the morning of the procedure. [facility] COVID-19 test specimen collect Misc 08-29 00:00: 00 09-23 00:00 :00 No TEST DIRECTED TODAY [facility] ID NOW COVID-19 TEST KIT Kit 08-22 00:00: 00 09-23 00:00 :00 No TEST DIRECTED TODAY [facility] PNV 67-iron ps-folate no.1-dha (VITAFOL ULTRA) 29 mg iron- 1 mg-200 mg Cap 2020-08 00:00: 00 Yes [id number] 1{capsu le} Take 1 capsule by mouth daily. [facility] docusate calcium 240 mg capsule 2020-08 00:00: 00 Yes [id number] 102 240mg Take 1 capsule by mouth once daily as needed for Constipati on. [facility] ferrous sulfate 325 mg (65 mg iron) tablet 2020-08 00:00: 00 Yes [id number] 102 325mg Take 1 tablet by mouth daily. [facility] ibuprofen 600 mg tablet 2020-08 00:00: 00 Yes [id number] 102 600mg Take 1 tablet by mouth every 6 (six) hours as needed (Pain). Take with food or milk. [facility] PNV 67-iron ps-folate no.1-dha (VITAFOL ULTRA) 29 mg iron- 1 mg-200 mg Cap 2020-08 00:00: 00 Yes [id number] 1{capsu le} Take 1 capsule by mouth daily. [facility] docusate calcium 240 mg capsule 2020-08 00:00: 00 Yes [id number] 102 240mg Take 1 capsule by mouth once daily as needed for Constipati on. [facility] ferrous sulfate 325 mg (65 mg iron) tablet 2020-08 00:00: 00 Yes [id number] 102 325mg Take 1 tablet by mouth daily. [facility] ibuprofen 600 mg tablet 2020-08 00:00: 00 Yes [id number] 102 600mg Take 1 tablet by mouth every 6 (six) hours as needed (Pain). Take with food or milk. [facility] PNV 67-iron ps-folate no.1-dha (VITAFOL ULTRA) 29 mg iron- 1 mg-200 mg Cap 2020-08 00:00: 00 Yes [id number] 1{capsu le} Take 1 capsule by mouth daily. [facility] docusate calcium 240 mg capsule 2020-08 00:00: 00 Yes [id number] 102 240mg Take 1 capsule by mouth once daily as needed for Constipati on. [facility] ferrous sulfate 325 mg (65 mg iron) tablet 2020-08 00:00: 00 Yes [id number] 102 325mg Take 1 tablet by mouth daily. [facility] ibuprofen 600 mg tablet 2020-08 00:00: 00 Yes [id number] 102 600mg Take 1 tablet by mouth every 6 (six) hours as needed (Pain). Take with food or milk. [facility] PNV 67-iron ps-folate no.1-dha (VITAFOL ULTRA) 29 mg iron- 1 mg-200 mg Cap 2020-08 00:00: 00 Yes [id number] 1{capsu le} Take 1 capsule by mouth daily. [facility] docusate calcium 240 mg capsule 2020-08 00:00: 00 Yes [id number] 102 240mg Take 1 capsule by mouth once daily as needed for Constipati on. [facility] ferrous sulfate 325 mg (65 mg iron) tablet 2020-08 00:00: 00 Yes [id number] 102 325mg Take 1 tablet by mouth daily. [facility] ibuprofen 600 mg tablet 2020-08 00:00: 00 Yes [id number] 102 600mg Take 1 tablet by mouth every 6 (six) hours as needed (Pain). Take with food or milk. [facility] PNV 67-iron ps-folate no.1-dha (VITAFOL ULTRA) 29 mg iron- 1 mg-200 mg Cap 2020-08 00:00: 00 Yes [id number] 1{capsu le} Take 1 capsule by mouth daily. [facility] ibuprofen 600 mg tablet 2020-08 00:00: 00 Yes [id number] 102 600mg Take 1 tablet by mouth every 6 (six) hours as needed (Pain). Take with food or milk. [facility] docusate calcium 240 mg capsule 2020-08 00:00: 00 09-23 00:00 :00 No [id number] 102 240mg Take 1 capsule by mouth once daily as needed for Constipati on. [facility] ferrous sulfate 325 mg (65 mg iron) tablet 2020-08 00:00: 00 09-23 00:00 :00 No [id number] 102 325mg Take 1 tablet by mouth daily. [facility] rho(D) immune globulin (RHOGAM) syringe 300 mcg 2020-08 09:37: 03 Yes 300ug 300 mcg, Intramuscu lar, ONCE, For 1 dose, Conditiona l, Routine [facility] HYDROcodone -acetaminop hen (NORCO 5) 5-325 mg tablet 1 tablet 2020-08 09:36: 15 Yes 1{tbl} 1 tablet, Oral, Q6HPRN, Starting on Wed07/22/21 at 0336, Until Discontinu ed, Routine, Pain (scale 7-10) [facility] ibuprofen (IBU) tablet 600 mg 2020-08 09:36: 15 Yes 600mg 600 mg, Oral, Q6HPRN, Starting on Wed07/22/21 at 0336, Until Discontinu ed, Routine, Pain (scale 4-6) [facility] acetaminoph en (TYLENOL) tablet 650 mg 2020-08 09:36: 15 Yes 650mg 650 mg, Oral, Q6HPRN, Starting on Wed07/22/21 at 0336, Until Discontinu ed, Routine, Pain (scale 1-3) [facility] diphenhydrA MINE (BENADRYL) tablet 25 mg 2020-08 09:36: 15 Yes 25mg 25 mg, Oral, Q6HPRN, Starting on Wed07/22/21 at 0336, Until Discontinu ed, Routine, Sleep, Itching [facility] ondansetron (ZOFRAN (PF)) injection 4 mg 2020-08 09:36: 15 Yes 4mg 4 mg, Slow IV Push, Q8HPRN, Starting on Wed07/22/21 at 0336, Until Discontinu ed, Routine, Nausea and Vomiting (N/V) [facility] simethicone (GAS RELIEF (SIMETHICON E)) chewable tablet 160 mg 2020-08 09:36: 15 Yes 160mg 160 mg, Oral, PC+HSPRN, Starting on Wed07/22/21 at 0336, Until Discontinu ed, Routine, Gas [facility] docusate calcium (SURFAK) capsule 240 mg 2020-08 09:36: 15 Yes 240mg 240 mg, Oral, QDAILYPRN, Starting on Wed07/22/21 at 0336, Until Discontinu ed, Routine, Constipati on [facility] magnesium hydroxide (MILK OF MAGNESIA) 400 mg/5 mL suspension 30 mL 2020-08 09:36: 15 Yes 30mL 30 mL, Oral, QDAILYPRN, Starting on Wed07/22/21 at 0336, Until Discontinu ed, Routine, Constipati on [facility] benzocaine- menthol (DERMOPLAST ) 20-0.5 % topical spray 2020-08 09:36: 14 Yes Topical, PRN, Starting on Wed07/22/21 at 0336, Until Discontinu ed, Routine, Perineum discomfort [facility] FENTanyl 2 mcg/mL + bupivacaine 0.125% in NS 250 mL epidural bag 2020-08 06:14: 00 07-22 13:14 :24 No Intra-op [facility] FENTanyl 2 mcg/mL + bupivacaine 0.125% in NS 250 mL epidural bag 2020-08 06:02: 00 07-22 13:14 :24 No Intra-op [facility] lidocaine-e pinephrine (XYLOCAINE W/EPINEPHRI NE) 1.5 %-1:200,000 injection 2020-08 05:58: 00 07-22 13:14 :24 No Intraderma l, ONCE INTRA PROCEDURE, Starting on Wed07/21/21 at 2358, Until Wed07/22/21 at 0714, Routine, Intra-op [facility] FENTanyl PF (SUBLIMAZE (PF)) injection 100 mcg 2020-08 00:19: 02 07-22 09:37 :04 No 100ug 100 mcg, Slow IV Push, Q1HPRN, 3 doses, Starting on Wed07/21/21 at 1819, Until Wed07/22/21 at 0337, Routine, Pain (scale 7-10) [facility] LR 1000 mL + oxytocin 20 units IV Solution 2020-08 00:10: 44 07-22 09:37 :04 No 2mU/min at 6-120 mL/hr, IV Infusion, TITRATE, Starting on Wed07/21/21 at 1810, Until Wed07/22/21 at 0337, IVY [facility] D5W-LR IV infusion 1,000 mL 2020-08 23:30: 00 07-22 09:37 :04 No 1000mL at 125 mL/hr, IV Infusion, CONTINUOUS , Starting on Wed07/21/21 at 1730, Until Wed07/22/21 at 0337, Routine [facility] lactated ringers IV infusion 500 mL 2020-08 23:22: 17 07-22 09:37 :04 No 500mL at 999 mL/hr, 500 mL, IV Infusion, PRN - SEE INSTRUCTIO NS, Starting on Wed07/21/21 at 1722, Until Wed07/22/21 at 0337, Routine [facility] PNV 67-iron ps-folate no.1-dha (VITAFOL ULTRA) 29 mg iron- 1 mg-200 mg Cap 2020-08 0-06 00:00: 00 Yes [id number] 1{capsu le} Take 1 capsule by mouth daily. [facility] PNV 67-iron ps-folate no.1-dha (VITAFOL ULTRA) 29 mg iron- 1 mg-200 mg Cap 2020-08 0-06 00:00: 00 Yes [id number] 1{capsu le} Take 1 capsule by mouth daily. [facility] PNV 67-iron ps-folate no.1-dha (VITAFOL ULTRA) 29 mg iron- 1 mg-200 mg Cap 2020-08 0-06 00:00: 00 Yes [id number] 1{capsu le} Take 1 capsule by mouth daily. [facility] PNV 67-iron ps-folate no.1-dha (VITAFOL ULTRA) 29 mg iron- 1 mg-200 mg Cap 2020-08 0-06 00:00: 00 Yes [id number] 1{capsu le} Take 1 capsule by mouth daily. [facility] PNV 67-iron ps-folate no.1-dha (VITAFOL ULTRA) 29 mg iron- 1 mg-200 mg Cap 2020-08 0-06 00:00: 00 Yes [id number] 1{capsu le} Take 1 capsule by mouth daily. [facility] PNV 67-iron ps-folate no.1-dha (VITAFOL ULTRA) 29 mg iron- 1 mg-200 mg Cap 2020-08 0-06 00:00: 00 Yes [id number] 1{capsu le} Take 1 capsule by mouth daily. [facility] PNV 67-iron ps-folate no.1-dha (VITAFOL ULTRA) 29 mg iron- 1 mg-200 mg Cap 2020-08 0-06 00:00: 00 Yes [id number] 1{capsu le} Take 1 capsule by mouth daily. [facility] PNV 67-iron ps-folate no.1-dha (VITAFOL ULTRA) 29 mg iron- 1 mg-200 mg Cap 2020-08 0-06 00:00: 00 Yes [id number] 1{capsu le} Take 1 capsule by mouth daily. [facility] PNV 67-iron ps-folate no.1-dha (VITAFOL ULTRA) 29 mg iron- 1 mg-200 mg Cap 2020-08 0-06 00:00: 00 Yes [id number] 1{capsu le} Take 1 capsule by mouth daily. [facility] PNV 67-iron ps-folate no.1-dha (VITAFOL ULTRA) 29 mg iron- 1 mg-200 mg Cap 2020-08 0-06 00:00: 00 Yes [id number] 1{capsu le} Take 1 capsule by mouth daily. [facility] PNV 67-iron ps-folate no.1-dha (VITAFOL ULTRA) 29 mg iron- 1 mg-200 mg Cap 2020-08 0-06 00:00: 00 Yes [id number] 1{capsu le} Take 1 capsule by mouth daily. [facility] PNV 67-iron ps-folate no.1-dha (VITAFOL ULTRA) 29 mg iron- 1 mg-200 mg Cap 2020-08 0-06 00:00: 00 Yes [id number] 1{capsu le} Take 1 capsule by mouth daily. [facility] PNV 67-iron ps-folate no.1-dha (VITAFOL ULTRA) 29 mg iron- 1 mg-200 mg Cap 2020-08 0-06 00:00: 00 Yes [id number] 1{capsu le} Take 1 capsule by mouth daily. [facility] PNV 67-iron ps-folate no.1-dha (VITAFOL ULTRA) 29 mg iron- 1 mg-200 mg Cap 2020-08 0-06 00:00: 00 Yes [id number] 1{capsu le} Take 1 capsule by mouth daily. [facility] PNV 67-iron ps-folate no.1-dha (VITAFOL ULTRA) 29 mg iron- 1 mg-200 mg Cap 2020-08 0- 00:00: 00 Yes [id number] 1{capsu le} Take 1 capsule by mouth daily. [facility] PNV 67-iron ps-folate no.1-dha (VITAFOL ULTRA) 29 mg iron- 1 mg-200 mg Cap 2020-08 0-06 00:00: 00 07-23 00:00 :00 No [id number] 1{capsu le} Take 1 capsule by mouth daily. [facility] lanolin 30 % Crea 04-22 00:00: 00 Yes [id number] 1{appli cator} Apply 1 Applicator to area(s) 2 (two) times daily. [facility] lanolin 30 % Crea 04-22 00:00: 00 Yes [id number] 1{appli cator} Apply 1 Applicator to area(s) 2 (two) times daily. [facility] lanolin 30 % Crea 0 04-22 00:00: 00 Yes [id number] 1{appli cator} Apply 1 Applicator to area(s) 2 (two) times daily. [facility] lanolin 30 % Crea 2020-0 04-22 00:00: 00 Yes [id number] 1{appli cator} Apply 1 Applicator to area(s) 2 (two) times daily. [facility] VITAFOL ULTRA 29 mg iron- 1 mg-200 mg Cap 04-22 00:00: 00 Yes 1{capsu le} Take 1 capsule by mouth daily. [facility] lanolin 30 % Crea 04-22 00:00: 00 Yes [id number] 1{appli cator} Apply 1 Applicator to area(s) 2 (two) times daily. [facility] VITAFOL ULTRA 29 mg iron- 1 mg-200 mg Cap 04-22 00:00: 00 Yes 1{capsu le} Take 1 capsule by mouth daily. [facility] lanolin 30 % Crea 0 04-22 00:00: 00 Yes [id number] 1{appli cator} Apply 1 Applicator to area(s) 2 (two) times daily. [facility] lanolin 30 % Crea 2020-0 04-22 00:00: 00 Yes [id number] 1{appli cator} Apply 1 Applicator to area(s) 2 (two) times daily. [facility] lanolin 30 % Crea 2020-0 04-22 00:00: 00 Yes [id number] 1{appli cator} Apply 1 Applicator to area(s) 2 (two) times daily. [facility] lanolin 30 % Crea 2020-0 04-22 00:00: 00 Yes [id number] 1{appli cator} Apply 1 Applicator to area(s) 2 (two) times daily. [facility] lanolin 30 % Crea 2020-0 04-22 00:00: 00 Yes [id number] 1{appli cator} Apply 1 Applicator to area(s) 2 (two) times daily. [facility] lanolin 30 % Crea 04-22 00:00: 00 07-03 00:00 :00 No [id number] 1{appli cator} Apply 1 Applicator to area(s) 2 (two) times daily. [facility] VITAFOL ULTRA 29 mg iron- 1 mg-200 mg Cap 04-22 00:00: 00 05-21 00:00 :00 No 1{capsu le} Take 1 capsule by mouth daily. [facility] 26-iron ps-folic-dh a (VITAFOL-ON E) 29 mg iron- 1 mg-200 mg per capsule 03-25 00:00: 00 Yes [id number] 1{capsu le} Take 1 capsule by mouth daily. [facility] 26-iron ps-folic-dh a (VITAFOL-ON E) 29 mg iron- 1 mg-200 mg per capsule 03-25 00:00: 00 Yes [id number] 1{capsu le} Take 1 capsule by mouth daily. [facility] 26-iron ps-folic-dh a (VITAFOL-ON E) 29 mg iron- 1 mg-200 mg per capsule 03-25 00:00: 00 Yes [id number] 1{capsu le} Take 1 capsule by mouth daily. [facility] 26-iron ps-folic-dh a (VITAFOL-ON E) 29 mg iron- 1 mg-200 mg per capsule 03-25 00:00: 00 05-07 00:00 :00 No [id number] 1{capsu le} Take 1 capsule by mouth daily. [facility] VITAFOL ULTRA 29 mg iron- 1 mg-200 mg Cap 03-25 00:00: 00 04-23 00:00 :00 No 1{capsu le} Take 1 capsule by mouth daily. [facility] Depo-Amplifier Mechanic a 150 mg/mL intramuscul ar suspension Inject 1 mL every 3 months by intramuscul ar route. Depo-Amplifier Mechanic a 150 mg/mL intramuscul ar suspension Inject 1 mL every 3 months by intramuscul ar route. No 1mL Depo-Prove ra 150 mg/mL intramuscu lar suspension Inject 1 mL every 3 months by intramuscu lar route. [facility] Vital Signs Vital Name Observation Time Observation Value Comments S [facility]ier Systolic blood pressure 2021-09-23 14:23:00 125 mm[Hg] [facility] Diastolic blood pressure 2021-09-23 14:23:00 76 mm[Hg] [facility] Heart rate 2021-09-23 14:23:00 67 /min [facility] Body temperature 2021-09-23 14:23:00 36.89 Frieda [facility] Respiratory rate 2021-09-23 14:23:00 18 /min [facility] Body height 2021-09-23 14:23:00 167.6 cm [facility] Body weight 2021-09-23 14:23:00 77.14 kg [facility] BMI 2021-09-23 14:23:00 27.45 kg/m2 [facility] Systolic blood pressure 2021-08-04 19:59:00 113 mm[Hg] [facility] Diastolic blood pressure 2021-08-04 19:59:00 77 mm[Hg] [facility] Heart rate 2021-08-04 19:59:00 90 /min [facility] Body temperature 2021-08-04 19:59:00 37.11 Frieda [facility] Respiratory rate 2021-08-04 19:59:00 18 /min [facility] Body height 2021-08-04 19:59:00 167.6 cm [facility] Body weight 2021-08-04 19:59:00 76.386 kg [facility] BMI 2021-08-04 19:59:00 27.18 kg/m2 [facility] Systolic blood pressure 2021-07-23 19:15:00 121 mm[Hg] [facility] Diastolic blood pressure 2021-07-23 19:15:00 75 mm[Hg] [facility] Heart rate 2021-07-23 19:15:00 106 /min [facility] Body temperature 2021-07-23 19:15:00 37.11 Frieda [facility] Respiratory rate 2021-07-23 19:15:00 20 /min [facility] Oxygen saturation in Arterial blood by Pulse oximetry 2021-07-23 13:45:00 99 /min [facility] Body height 2021-07-21 23:35:00 167.6 cm [facility] Body weight 2021-07-21 23:35:00 84.823 kg [facility] BMI 2021-07-21 23:35:00 30.18 kg/m2 [facility] Systolic blood pressure 2021-07-17 21:30:00 132 mm[Hg] [facility] Diastolic blood pressure 2021-07-17 21:30:00 81 mm[Hg] [facility] Heart rate 2021-07-17 21:30:00 78 /min [facility] Body temperature 2021-07-17 21:30:00 37.28 Frieda [facility] Respiratory rate 2021-07-17 21:30:00 18 /min [facility] Body height 2021-07-17 21:30:00 167.6 cm [facility] Body weight 2021-07-17 21:30:00 85.872 kg [facility] BMI 2021-07-17 21:30:00 30.56 kg/m2 [facility] Systolic blood pressure 2021-07-08 21:59:00 112 mm[Hg] [facility] Diastolic blood pressure 2021-07-08 21:59:00 69 mm[Hg] [facility] Heart rate 2021-07-08 21:59:00 68 /min [facility] Body temperature 2021-07-08 21:59:00 36.94 Frieda [facility] Respiratory rate 2021-07-08 21:59:00 18 /min [facility] Body height 2021-07-08 21:59:00 167.6 cm [facility] Body weight 2021-07-08 21:59:00 82.645 kg [facility] BMI 2021-07-08 21:59:00 29.41 kg/m2 [facility] Systolic blood pressure 2021-07-03 21:49:00 122 mm[Hg] [facility] Diastolic blood pressure 2021-07-03 21:49:00 75 mm[Hg] [facility] Heart rate 2021-07-03 21:49:00 74 /min [facility] Body temperature 2021-07-03 21:49:00 36.78 Frieda [facility] Respiratory rate 2021-07-03 21:49:00 18 /min [facility] Body height 2021-07-03 21:49:00 167.6 cm [facility] Body weight 2021-07-03 21:49:00 83.099 kg [facility] BMI 2021-07-03 21:49:00 29.57 kg/m2 [facility] Systolic blood pressure 2021-06-24 15:29:00 127 mm[Hg] [facility] Diastolic blood pressure 2021-06-24 15:29:00 71 mm[Hg] [facility] Heart rate 2021-06-24 15:28:00 100 /min [facility] Body temperature 2021-06-24 15:28:00 36.94 Frieda [facility] Respiratory rate 2021-06-24 15:28:00 18 /min [facility] Body height 2021-06-24 15:28:00 167.6 cm [facility] Body weight 2021-06-24 15:28:00 82.328 kg [facility] BMI 2021-06-24 15:28:00 29.29 kg/m2 [facility] Oxygen saturation in Arterial blood by Pulse oximetry 2021-06-24 15:28:00 98 /min [facility] Systolic blood pressure 2021-06-18 16:24:00 127 mm[Hg] [facility] Diastolic blood pressure 2021-06-18 16:24:00 71 mm[Hg] [facility] Heart rate 2021-06-18 16:24:00 92 /min [facility] Body temperature 2021-06-18 16:24:00 37.33 Frieda [facility] Respiratory rate 2021-06-18 16:24:00 19 /min [facility] Body height 2021-06-18 16:24:00 167.6 cm [facility] Body weight 2021-06-18 16:24:[address] [facility] BMI 2021-06-18 16:24:00 29.25 kg/m2 [facility] Oxygen saturation in Arterial blood by Pulse oximetry 2021-06-18 16:24:00 99 /min [facility] Systolic blood pressure 2021-06-02 18:53:00 126 mm[Hg] [facility] Diastolic blood pressure 2021-06-02 18:53:00 77 mm[Hg] [facility] Heart rate 2021-06-02 18:53:00 81 /min [facility] Respiratory rate 2021-06-02 18:53:00 19 /min [facility] Body height 2021-06-02 18:53:00 167.6 cm [facility] Body weight 2021-06-02 18:53:00 81.818 kg [facility] BMI 2021-06-02 18:53:00 29.11 kg/m2 [facility] Oxygen saturation in Arterial blood by Pulse oximetry 2021-06-02 18:53:00 98 /min [facility] Systolic blood pressure 2021-05-19 18:44:00 114 mm[Hg] [facility] Diastolic blood pressure 2021-05-19 18:44:00 73 mm[Hg] [facility] Heart rate 2021-05-19 18:44:00 95 /min [facility] Body temperature 2021-05-19 18:44:00 36.78 Frieda [facility] Respiratory rate 2021-05-19 18:44:00 18 /min [facility] Body height 2021-05-19 18:44:[address] [facility] Body weight 2021-05-19 18:44:[address] [facility] BMI 2021-05-19 18:44:00 28.11 kg/m2 Univ [facility] Oxygen saturation in Arterial blood by Pulse oximetry 2021-05-19 18:44:00 98 /min [facility] Systolic blood pressure 2021-05-05 18:29:00 125 mm[Hg] [facility] Diastolic blood pressure 2021-05-05 18:29:00 76 mm[Hg] [facility] Heart rate 2021-05-05 18:29:00 81 /min [facility] Body temperature 2021-05-05 18:29:00 37.17 Frieda [facility] Respiratory rate 2021-05-05 18:29:00 18 /min [facility] Body height 2021-05-05 18:29:[address] [facility] Body weight 2021-05-05 18:29:[address] [facility] BMI 2021-05-05 18:29:00 27.73 kg/m2 Univ [facility] Systolic blood pressure 2021-04-22 15:33:00 132 mm[Hg] [facility] Diastolic blood pressure 2021-04-22 15:33:00 76 mm[Hg] [facility] Heart rate 2021-04-22 15:33:00 89 /min [facility] Respiratory rate 2021-04-22 15:33:00 18 /min [facility] Body height 2021-04-22 15:33:[address] [facility] Body weight 2021-04-22 15:33:[address] [facility] BMI 2021-04-22 15:33:00 27.32 kg/m2 Univ [facility] Oxygen saturation in Arterial blood by Pulse oximetry 2021-04-22 15:33:00 98 /min [facility] Procedures Procedure Date / Time Performed Performing Clinician Source CBC WITH DIFF 2021-07-23 09:42:00 Fish, Kenneth [facility] CENTRAL NEURAXIAL BLOCK 2021-07-22 06:04:56 Garrett Dillard [facility] CBC WITH DIFF 2021-07-21 23:59:00 Fish, Kenneth [facility] HEPATITIS B SURFACE ANTIGEN 2021-07-21 23:59:00 Fish, Kenneth [facility] ADC OR SHWETHA ONLY - RPR 2021-07-21 23:59:00 Fish, Kenneth [facility] HIV 1/2 AG-AB WITH REFLEX 2021-07-21 23:59:00 Fish, [facility] HB ABO GROUPING 2021-07-21 23:55:00 [facility] IMMUNE GLOBULIN 2021-07-21 23:55:00 Fish, Kristan perales [facility] HOSPITAL ADMISSION 2021-07-21 06:01:00 Doctor Un assigned, Dinwiddie [facility] CONSENT/REFUSAL FOR DIAGNOSIS AND TREATMENT 2021-07-18 19:32:30 Doctor Unassigned, Dinwiddie [facility] ASSIGNMENT OF BENEFITS 2021-07-18 19:31:56 Docto r Unassigned, Dinwiddie [facility] ASSIGNMENT OF BENEFITS 2021-07-18 19:17:37 Docto r Unassigned, Dinwiddie [facility] DME/SUPPLY JUSTIFICATION 2021-07-14 06:01:00 Doc tor Unassigned, Dinwiddie [facility] POCT URINALYSIS W/O SPECIFIC GRAVITY 2021-07-03 21:50:00 Fish, Kenneth [facility] DME/SUPPLY JUSTIFICATION 2021-06-26 06:01:00 Doc tor Unassigned, Dinwiddie [facility] POCT URINALYSIS W/O SPECIFIC GRAVITY 2021-06-24 15:31:00 Fish, Kenneth [facility] POCT URINALYSIS W/O SPECIFIC GRAVITY 2021-06-18 16:27:00 Fish, [facility] POCT URINALYSIS W/O SPECIFIC GRAVITY 2021-06-02 18:55:00 Fish, Kenneth [facility] TDAP VACCINE, >11 YRS, IM 2021-05-19 19:11:46 Felipe [facility] POCT URINALYSIS W/O SPECIFIC GRAVITY 2021-05-19 18:47:00 Felipe [facility] ASSIGNMENT OF BENEFITS 2021-05-06 15:26:04 Docto r Unassigned, Dinwiddie [facility] POCT URINALYSIS W/O SPECIFIC GRAVITY 2021-05-05 18:30:00 FishKenneth [facility] POCT URINALYSIS W/O SPECIFIC GRAVITY 2021-04-22 15:36:00 Felipe [facility] Plan of Care Planned Activity Planned Date Details Comments Source Future Appointment 2024-07-21 08:45:00 Renea alonzo, [address]; [address] Future Appointment 2023-12-28 08:30:00 Gcbzw Gcb zw Ma Schedule, [address]; [address] Encounters Start Date/Time End Date/Time Encounter Type Admission Type Attending [facility] Care Facility Care Department Encounter ID Source 2023-10-04 00:00:00 2023-10-04 00:00:00 Renea Pickard MD: [address], [address], [place] [address] , Ph. [facility] - GC_GCBZW_[facility]* [id number] [facility] 2023-09-15 00:00:00 2023-09-15 00:00:00 Outpatient GC_GCBZW_Ka diyala_S [facility] [id number] [facility] 2023-09-09 00:00:00 2023-09-09 00:00:00 Outpatient GC_GCBZW_Ka diyala_S [facility] [id number] [facility] 2023-09-09 00:00:00 2023-09-09 00:00:00 YUDI Stevens: [address], [address], [place] [id number] , Ph. [facility] - GC_GCBZW_La dutch Swenson* [id number] [facility] 2023-09-02 00:00:00 2023-09-02 00:00:00 Outpatient GC_GCBZW_Ka diyala_S PRIV PRIV [id number] [facility] 2023-08-26 00:00:00 2023-08-26 00:00:00 Outpatient GC_GCBZW_Ka diyala_S PRIV PRIV [id number] [facility] 2023-08-20 00:00:00 2023-08-20 00:00:00 Outpatient GC_GCBZW_Ka diyala_S PRIV PRIV [id number] [facility] 2023-08-13 00:00:00 2023-08-13 00:00:00 Outpatient GC_GCBZW_Ka diyala_S PRIV PRIV [id number] [facility] 2023-06-12 00:00:00 2023-06-12 00:00:00 Outpatient GC_GCBZW_Ka diyala_S PRIV PRIV [id number] [facility] 2023-06-12 00:00:00 2023-06-12 00:00:00 Outpatient GC_GCBZW_Ka diyala_S PRIV PRIV [id number] [facility] 2023-06-12 00:00:00 2023-06-12 00:00:00 Outpatient GC_GCBZW_Ka diyala_S PRIV PRIV [id number] [facility] 2023-06-12 00:00:00 2023-06-12 00:00:00 Outpatient GC_GCBZW_Ka diyala_S PRIV PRIV [id number] [facility] 2023-06-12 00:00:00 2023-06-12 00:00:00 Outpatient GC_GCBZW_Ka diyala_S PRIV PRIV [id number] [facility] 2023-06-09 00:00:00 2023-06-09 00:00:00 Outpatient GC_GCBZW_Ka diyala_S PRIV PRIV [id number] [facility] 2023-06-09 00:00:00 2023-06-09 00:00:00 Outpatient GC_GCBZW_Ka diyala_S PRIV PRIV [id number] [facility] 2023-05-15 00:00:00 2023-05-15 00:00:00 Outpatient GC_GCBZW_Ka diyala_S PRIV PRIV [id number] [facility] 2023-04-17 00:00:00 2023-04-17 00:00:00 Outpatient GC_GCBZW_Ka diyala_S PRIV PRIV [id number] [facility] 2023-04-17 00:00:00 2023-04-17 00:00:00 Outpatient GC_GCBZW_Ka diyala_S PRIV PRIV [id number] [facility] 2023-03-23 00:00:00 2023-03-23 00:00:00 Outpatient GC_GCBZW_Ka diyala_S PRIV PRIV [id number] [facility] 2023-03-23 00:00:00 2023-03-23 00:00:00 Outpatient GC_GCBZW_Ka diyala_S PRIV PRIV [id number] [facility] 2023-03-17 00:00:00 2023-03-17 00:00:00 Outpatient GC_GCBZW_Ka diyala_S PRIV PRIV [id number] [facility] 2023-03-10 00:00:00 2023-03-10 00:00:00 Outpatient GC_GCBZW_Ka diyala_S PRIV PRIV [id number] [facility] 2023-03-09 00:00:00 2023-03-09 00:00:00 Outpatient GC_GCBZW_Ka diyala_S PRIV PRIV [id number] [facility] 2021-10-17 14:45:00 2021-10-17 14:45:00 Outpatient R KENNETH WOOD [facility] [id number] [facility] 2021-09-30 13:30:00 2021-09-30 13:30:00 Outpatient R KENNETH WOOD [facility] [id number] [facility] 2021-09-23 08:15:00 2021-09-23 08:52:13 Outpatient R KENNETH WOOD [facility] [id number] [facility] 2021-09-23 08:15:00 2021-09-23 08:52:13 Routine Visit Kenneth Wood [facility] 1.2840.114 350.1.13.10 4.2.7.2.686 [id number] 134 [id number] [facility] 2021-08-25 16:15:00 2021-08-25 16:15:00 Outpatient R KENNETH WOOD [facility] [id number] [facility] 2021-08-04 13:30:00 2021-08-04 14:17:44 Outpatient R KENNETH WOOD [facility] [id number] [facility] 2021-08-04 13:30:00 2021-08-04 14:17:44 Routine Visit Kenneth Wood [facility] 1.2840.114 350.1.13.10 4.2.7.2.686 [id number] 134 [id number] [facility] 2021-07-24 00:00:00 2021-07-24 00:00:00 Telephone Kenneth Wood [facility] 1.2840.114 350.1.13.10 4.2.7.2.686 [id number] 134 [id number] [facility] 2021-07-21 17:00:00 2021-07-23 15:40:00 Inpatient P KENNETH WOOD [facility] [id number] [facility] 2021-07-21 17:00:00 2021-07-23 15:40:00 Hospital Encounter Kenneth Wood [facility] 1.2.840.114 350.1.13.10 4.2.7.2.686 [id number] [facility] 2021-07-21 23:53:00 2021-07-22 07:08:00 [facility] 1.2.840.114 350.1.13.10 4.2.7.2.686 [id number] [facility] 2021-07-21 21:00:27 2021-07-21 21:00:27 Anesthesia Event iNshant [facility] 1.2.840.114 350.1.13.10 4.2.7.2.686 [id number] [facility] 2021-07-21 00:00:00 2021-07-21 00:00:00 Orders Only Doctor Unassigned, Dinwiddie [facility] 1.2.840.114 350.1.13.10 4.2.7.2.686 [id number] [id number] [facility] 2021-07-18 13:18:48 2021-07-18 13:33:48 Laboratory Only Only, Adc Test Felipe Kenneth [facility] 1.2.840.114 350.1.13.10 4.2.7.2.686 [id number] [facility] 2021-07-18 13:15:00 2021-07-18 13:15:00 Outpatient R KENNETH WOOD [facility] [id number] [facility] 2021-07-18 00:00:00 2021-07-18 00:00:00 Orders Only Doctor Unassigned, Dinwiddie [facility] 1.2.840.114 350.1.13.10 4.2.7.2.686 [id number] [id number] [facility] 2021-07-17 15:30:00 2021-07-17 15:54:49 Outpatient R KENNETH WOOD [facility] [id number] [facility] 2021-07-17 15:13:26 2021-07-17 15:54:49 Routine Visit Felipe Kenneth [facility] 1.2.840.114 350.1.13.10 4.2.7.2.686 [id number] 134 [id number] [facility] 2021-07-14 00:00:00 2021-07-14 00:00:00 Telephone Felipe [facility] 1.2.840.114 350.1.13.10 4.2.7.2.686 [id number] 134 [id number] [facility] 2021-07-14 00:00:00 2021-07-14 00:00:00 Orders Only Doctor Unassigned, Dinwiddie [facility] 1.2.840.114 350.1.13.10 4.2.7.2.686 [id number] [id number] [facility] 2021-07-08 15:16:42 2021-07-08 16:14:36 Routine Visit Felipe Kenneth [facility] 1.2.840.114 350.1.13.10 4.2.7.2.686 [id number] 134 [id number] [facility] 2021-07-08 15:15:00 2021-07-08 16:14:36 Outpatient R KENNETH WOOD [facility] [id number] [facility] 2021-07-03 14:59:33 2021-07-03 16:06:04 Routine Visit Felipe Kenneth [facility] 1.2.840.114 350.1.13.10 4.2.7.2.686 [id number] [facility] 2021-07-03 14:45:00 2021-07-03 16:06:04 Outpatient R KENNETH WOOD [facility] [id number] [facility] 2021-06-26 00:00:00 2021-06-26 00:00:00 Orders Only Doctor Unassigned, Dinwiddie [facility] 1.84.114 350.1.13.10 4.2.7.2.686 [id number] [facility] 2021-06-24 09:23:01 2021-06-24 10:01:58 Routine Visit FelipeKenneth [facility] 1..114 350.1.13.10 4.2.7.2.686 [id number] 134 [id number] [facility] 2021-06-24 09:15:00 2021-06-24 10:01:58 Outpatient R KENNETH WOOD [facility] [id number] [facility] 2021-06-19 00:00:00 2021-06-19 00:00:00 Telephone FelipeKenneth [facility] 1..114 350.1.13.10 4.2.7.2.686 [id number] 134 [id number] [facility] 2021-06-18 11:00:00 2021-06-18 11:50:06 Outpatient R KENNETH WOOD [facility] [id number] [facility] 2021-06-18 10:59:05 2021-06-18 11:50:06 Routine Visit FelipeKenneth [facility] 1..114 350.1.13.10 4.2.7.2.686 [id number] 134 [id number] [facility] 2021-06-16 11:00:00 2021-06-16 11:00:00 Outpatient [facility] [id number] [facility] 2021-06-02 13:45:41 2021-06-02 14:03:35 Routine Visit Kenneth [facility] 1.114 350.1.13.10 4.2.7.2.686 [id number] 134 [id number] [facility] 2021-06-02 13:30:00 2021-06-02 13:30:00 Outpatient R KENNETH WOOD [facility] [id number] [facility] 2021-05-21 00:00:00 2021-05-21 00:00:00 Refill Kenneth Wood [facility] 1.114 350.1.13.10 4.2.7.2.686 [id number] 134 [id number] [facility] 2021-05-19 13:36:18 2021-05-19 14:15:21 Routine Visit Kenneth Wood [facility] 1.114 350.1.13.10 4.2.7.2.686 [id number] 134 [id number] [facility] 2021-05-19 13:30:00 2021-05-19 13:30:00 Outpatient R KENNETH WOOD [facility] [id number] [facility] 2021-05-06 11:15:00 2021-05-06 11:15:00 Outpatient R KENNETH WOOD [facility] [id number] [facility] 2021-05-06 10:27:20 2021-05-06 10:42:20 Melt Supervisor Visit Pob, Adc Lab Main Kenneth Wood [facility] 1..114 350.1.13.10 4.2.7.2.686 [id number] [facility] 2021-05-06 00:00:00 2021-05-06 00:00:00 Orders Only Doctor Unassigned, Dinwiddie [facility] 1.114 350.1.13.10 4.2.7.2.686 [id number] [id number] [facility] 2021-05-05 12:52:05 2021-05-05 13:54:58 Routine Visit Kenneth Wood [facility] 1.2.840.114 350.1.13.10 4.2.7.2.686 [id number] [facility] 2021-05-05 13:15:00 2021-05-05 13:15:00 Outpatient R KENNETH WOOD [facility] [id number] [facility] 2021-04-22 10:17:38 2021-04-22 11:07:22 Routine Visit Kenneth Wood [facility] 1.2.840.114 350.1.13.10 4.2.7.2.686 [id number] 134 [id number] [facility] 2021-04-22 10:30:00 2021-04-22 10:30:00 Outpatient R KENNETH WOOD [facility] [id number] [facility] 2021-03-25 09:45:00 2021-03-25 09:45:00 Outpatient R KENNETH WOOD [facility] [id number] [facility] 2021-03-06 09:00:00 2021-03-06 09:00:00 Outpatient R [facility] [id number] [facility] 2021-02-27 13:00:00 2021-02-27 13:00:00 Outpatient R KENNETH WOOD [facility] [id number] [facility] 2021-01-30 11:00:00 2021-01-30 11:00:00 Outpatient R KENNETH WOOD [facility] [id number] [facility] 2021-01-02 11:00:00 2021-01-02 11:00:00 Outpatient R KENNETH WOOD [facility] [id number] [facility] 2020-12-12 08:45:00 2020-12-12 08:45:00 Outpatient KENNETH BENNETT [facility] [id number] [facility] 2020-12-05 08:30:00 2020-12-05 08:30:00 Outpatient KENNETH BENNETT [facility] [id number] [facility] 2020-11-25 09:30:00 2020-11-25 09:30:00 Outpatient KENNETH BENNETT [facility] [id number] [facility] Results Test Description Test Time Test Comments Results Result Co mments Source [facility] I[facility] [id number] 13:55:37* Test Item Value Reference Range Interpretation Comme nts RHIG CANDIDATE? (test code = 5055) No- see comment Patient is not a candidate for RhIg- Patient is Rh Positive.Performed at [facility] Laboratory Services - [facility] Blood [address] [place] [address]Goic Free: [phone] No. [id number] [facility] HospitalHepatitis B Surface [id number] 08:23:38 * Test Item Value Reference Range Interpretation Comme nts HBsAg Semi-Quantitative (manju t code = 5195-3) Negative Negative [facility] SHWETHA ONLY - [id number] 07:20:06* Test Item Value Reference Range Interpretation Comme nts RPR (Qualitative) (test code = 13837-3) Nonreactive Nonreactive Lab Interpretation (test cod e = 05414-8) Normal [facility]2 AG-AB WITH [id number] 01:28:25* Test Item Value Reference Range Interpretation Comme nts HIV Semi-quantitative (test code = 42080-0) Negative Negative ILIANA (test code = ILIANA) Non-reactive for HIV-1 antigen and HIV-1/HIV-2 antibodies. ?No laboratory evidence of HIV infection. ?Repeat in 2-4 weeks if acute HIV infection is suspected. [facility] HospitalType and Screen - ONCE [id number] 01:04:35 * Test Item Value Reference Range Interpretation Comme nts ABO & RH (test code = 20) A Positive Performed at [facility] Laboratory Services - [facility] Blood [address] [place], [place] [id number] Free: [phone] No. [id number] IAT (test code = 1185) Negative Performed at [facility] Laboratory [facility] Blood [address] [place], [place] [id number] Free: [phone] No. [id number] [facility] HospitalCB with [id number] 00:35:16* Test Item Value Reference Range Interpretation Comme nts WBC (test code = 6690-2) See_Comment [Automated messa ge] The system which generated this result transmitted reference range: 4.30 - 11.10 10*3/?L. The reference range was not used to interpret this result as normal/abnormal. RBC (test code = 789-8) See_Comment [Automated messa ge] The system which generated this result transmitted reference range: 3.93 - 5.25 10*6/?L. The reference range was not used to interpret this result as normal/abnormal. HGB (test code = 718-7) 11.6 g/dL 11.6-15.0 HCT (test code = 4544-3) 36.2 % 35.7-45.2 MCV (test code = 787-2) 86.4 fL 80.6-95.5 MCH (test code = 785-6) 27.7 pg 25.9-32.8 MCHC (test code = 786-4) 32.0 g/dL 31.6-35.1 RDW-SD (test code = 43436-9) 42.9 fL 39.0-49.9 RDW-CV (test code = 788-0) 13.7 % 12.0-15.5 PLT (test code = 777-3) See_Comment [Automated messa ge] The system which generated this result transmitted reference range: 166 - 358 10*3/?L. The reference range was not used to interpret this result as normal/abnormal. MPV (test code = 62739-9) 10.8 fL 9.5-12.9 NRBC/100 WBC (test code = 4944753283) See_Comment [Automated me ssage] The system which generated this result transmitted reference range: 0.0 - 10.0 /100 WBCs. The reference range was not used to interpret this result as normal/abnormal. NRBC x10^3 (test code = 7790242147) <0.01 See_Comment [Automated me ssage] The system which generated this result transmitted reference range: 10*3/?L. The reference range was not used to interpret this result as normal/abnormal. GRAN MAT (NEUT) % (test code = 770-8) 75.2 % IMM GRAN % (test code = 5785892805) 0.50 % LYMPH % (test code = 736-9) 15.7 % MONO % (test code = 5905-5) 5.8 % EOS % (test code = 713-8) 2.6 % BASO % (test code = 706-2) 0.2 % GRAN MAT x10^3(ANC) (test code = 6664195732) 6.49 10*3/uL 1.88-7.09 IMM GRAN x10^3 (test code = 4569651967) 0.04 10*3/uL 0.00-0.06 LYMPH x10^3 (test code = 731-0) 1.35 10*3/uL 1.32-3.29 MONO x10^3 (test code = 742-7) 0.50 10*3/uL 0.33-0.92 EOS x10^3 (test code = 711-2) 0.22 10*3/uL 0.03-0.39 BASO x10^3 (test code = 704-7) <0.03 0.01-0.07 [facility] W/O SPECIFIC [id number] 21:50:00* Test Item Value Reference Range Interpretation Comme nts POCT PH U (test code = 3254) N/A 5-8 POCT U LEUK EST (test code = 3263) N/A Negative - Negative POCT U NIT (test code = 3262) N/A Negative - Negati ve POCT U PROT (test code = 3259) Negative Negative - Negat isai POCT U GLU (test code = 3256) Negative Negative - Negati ve POCT U KETONE (test code = 3258) N/A Negative - Neg ative POCT U BLD (test code = 3257) N/A Negative - Negati ve Lab Interpretation (test cod e = 33619-5) [facility] URINALYSIS W/O SPECIFIC [id number] 15:31:00* Test Item Value Reference Range Interpretation Comme nts POCT PH U (test code = 3254) n/a 5-8 POCT U LEUK EST (test code = 3263) n/a Negative - Negative POCT U NIT (test code = 3262) n/a Negative - Negati ve POCT U PROT (test code = 3259) negative Negative - Negat isai POCT U GLU (test code = 3256) Negative - Negati ve POCT U KETONE (test code = 3258) n/a Negative - Neg ative POCT U BLD (test code = 3257) n/a Negative - Negati ve Lab Interpretation (test cod e = 35697-0) [facility] URINALYSIS W/O SPECIFIC [id number] 16:27:00* Test Item Value Reference Range Interpretation Comme nts POCT PH U (test code = 3254) n/a 5-8 POCT U LEUK EST (test code = 3263) n/a Negative - Negative POCT U NIT (test code = 3262) n/a Negative - Negati ve POCT U PROT (test code = 3259) negative Negative - Negat isai POCT U GLU (test code = 3256) negative Negative - Negati ve POCT U KETONE (test code = 3258) n/a Negative - Neg ative POCT U BLD (test code = 3257) n/a Negative - Negati ve Lab Interpretation (test cod e = 27243-5) [facility] URINALYSIS W/O SPECIFIC [id number] 18:55:00* Test Item Value Reference Range Interpretation Comme nts POCT PH U (test code = 3254) n/a 5-8 POCT U LEUK EST (test code = 3263) n/a Negative - Negative POCT U NIT (test code = 3262) n/a Negative - Negati ve POCT U PROT (test code = 3259) negative Negative - Negat isai POCT U GLU (test code = 3256) negative Negative - Negati ve POCT U KETONE (test code = 3258) n/a Negative - Neg ative POCT U BLD (test code = 3257) n/a Negative - Negati ve Lab Interpretation (test cod e = 39666-2) Normal [facility] URINALYSIS W/O SPECIFIC [id number] 18:47:00* Test Item Value Reference Range Interpretation Comme nts POCT PH U (test code = 3254) n/a 5-8 POCT U LEUK EST (test code = 3263) n/a Negative - Negative POCT U NIT (test code = 3262) n/a Negative - Negati ve POCT U PROT (test code = 3259) negative Negative - Negat isai POCT U GLU (test code = 3256) negative Negative - Negati ve POCT U KETONE (test code = 3258) n/a Negative - Neg ative POCT U BLD (test code = 3257) n/a Negative - Negati ve Lab Interpretation (test cod e = 76859-8) Normal [facility] URINALYSIS W/O SPECIFIC [id number] 18:30:00* Test Item Value Reference Range Interpretation Comme nts POCT PH U (test code = 3254) N/A 5-8 POCT U LEUK EST (test code = 3263) N/A Negative - Negative POCT U NIT (test code = 3262) N/A Negative - Negati ve POCT U PROT (test code = 3259) Negative Negative - Negat isai POCT U GLU (test code = 3256) Negative Negative - Negati ve POCT U KETONE (test code = 3258) N/A Negative - Neg ative POCT U BLD (test code = 3257) N/A Negative - Negati ve Lab Interpretation (test cod e = [id number]) Normal [facility] URINALYSIS W/O SPECIFIC [id number] 15:36:00* Test Item Value Reference Range Interpretation Comme nts POCT PH U (test code = 3254) n/a 5-8 POCT U LEUK EST (test code = 3263) n/a Negative - Negative POCT U NIT (test code = 3262) n/a Negative - Negati ve POCT U PROT (test code = 3259) negative Negative - Negat isai POCT U GLU (test code = 3256) Negative - Negati ve POCT U KETONE (test code = 3258) n/a Negative - Neg ative POCT U BLD (test code = 3257) n/a Negative - Negati ve Lab Interpretation (test cod e = [id number]) Normal [facility]
[2023-10-08 10:33] LABS: Absolute Lymphocytes (CBC) 1.2 K/uL (0.7-4.9); Hematocrit 44.1 % (36.0-45.0); Lymphocytes % 14.3 % (15.3-44.8); MCV 89.3 fL (80-100); MPV 7.7 fL (7.6-11.3); Platelets 255 thou/uL (152-406); RBC Red Blood Cell Count 4.94 M/uL (3.86-4.86)
[2023-10-08 10:48] LABS: SARS-CoV-2 Antigen Rapid Res Negative (Negative)
[2023-10-08 10:56] LABS: Albumin 4.5 g/dL (3.4-5.0); Bilirubin Total 0.6 mg/dL (0.2-1.0); Potassium 3.7 mEq/L (3.5-5.1); Protein, Total 8.8 g/dL (6.4-8.2)
[2023-10-08 13:01] LABS: Specific Gravity 1.028 (1.005-1.030)
[2023-10-08 13:07] LABS: Specific Gravity 1.028 (1.005-1.030); Urine Bacteria None Seen /HPF (<20); Urine Bilirubin NEGATIVE (Negative); Urine Blood Negative (Negative); Urine Clarity Clear (Clear); Urine Color Light-Yellow (Yellow); Urine Glucose NEGATIVE (Negative); Urine Mucus Slight /HPF (None Seen); Urine Protein 1+ (Negative); Urine RBC <5 /HPF (None Seen); Urine Urobilinogen Normal (Normal); Urine pH 8.5 (5.0-7.0)
--- NOTE | 2023-10-08 13:36 | RAD REPORT ---
EXAM DESCRIPTION: CT - Abdomen Pelvis W Contrast - 10/08/2023 1:10 pm CLINICAL HISTORY: vomiting;Abd pain COMPARISON: Abdomen Pelvis W Contrast dated 02/19/2023 TECHNIQUE: Thin cut axial CT imaging of the abdomen and pelvis was performed following intravenous a dministration of 100 mL Isovue 300. Multiplanar reformats were generated and reviewed. All CT scans are performed using dose optimization technique as appropriate and may include automated exposure control or mA/KV adjustment according to patient size. FINDINGS: No suspicious findings in the lung bases. The liver, spleen, adrenal glands, and pancreas show no suspicious findings. Gallbladder and biliary tree are also without suspicious finding. Symmetric renal function is seen with no hydronephrosis or suspicious renal mass. Small hiatal hernia. No dilated bowel loops. Nonspecific mild wall prominence of the ascending colon with mild adjacent fat stranding. Nondistention somewhat limits evaluation. Appendix is unremarkable. No free air, free fluid or inflammatory stranding. No hernia, mass or bulky lymphadenopathy. The uri nary bladder is without significant finding. No suspicious bony findings. IMPRESSION: Subtle wall prominence of the ascending colon with mild adjacent fat stranding. Nondiste ntion of the colon somewhat limits evaluation. Findings could relate to segmental infectious or infla mmatory colitis. No other acute intra-abdominal process.
--- NOTE | 2023-10-08 14:20 | EDPHYS ---
Physician Documentation [facility] Name: Neelima Nix Age: 22 yrs Sex: Female : 2000 Arrival Date: 10/08/2023 Time: 09:58 Bed 15 Private MD: ED Physician Eduin Coello HPI: 10/08 11:05 This 22 yrs old Black Female presents to ER via Ambulatory with complaints of Vomiting, rn Chills. 11:05 The patient presents to the emergency department with nausea, vomiting, diarrhea, rn abdominal pain. Onset: The symptoms/episode began/occurred this morning. Possible causes: unknown. The symptoms are aggravated by nothing. The symptoms are alleviated by nothing. Associated signs and symptoms: Pertinent positives: abdominal pain, diarrhea, nausea, vomiting, Pertinent negatives: GI bleeding. Severity of symptoms: At their worst the symptoms were moderate in the emergency department the symptoms are unchanged. The patient has not experienced similar symptoms in the past. The patient has not recently seen a physician. CUSTODIAN BLOOD BANK: 14:00 Not cm10 Historical: - Allergies: 10:26 No Known Allergies; hb - PMHx: 10:26 None; hb - Immunization history:: Adult Immunizations up to date. - Social history:: Smoking status: Patient denies any tobacco usage or history of. - Family history:: not pertinent. - Hospitalizations: : No recent hospitalization is reported. ROS: 11:05 Constitutional: Negative for fever, chills, and weight loss, Cardiovascular: Negative rn for chest pain, palpitations, and edema, Respiratory: Negative for shortness of breath, cough, wheezing, and pleuritic chest pain, Abdomen/GI: Positive for abdominal pain/nausea/vomiting/diarrhea. No blood in stool. MS/Extremity: Negative for injury and deformity, Skin: Negative for injury, rash, and discoloration, Neuro: Negative for headache, weakness, numbness, tingling, and seizure, Exam: 11:05 Constitutional: This is a well developed, well nourished patient who is awake, alert, rn and in no acute distress. Ambulatory to room without difficulty or assistance. Holding up emesis bag but no active vomiting. Head/Face: Normocephalic, atraumatic. ENT: Dry mucous membranes. Cardiovascular: Regular rate and rhythm . No pulse deficits. Respiratory: No increased work of breathing, no retractions or nasal flaring. Abdomen/GI: Soft, mild periumbilical and suprapubic tenderness. No rebound or guarding Neuro: Awake and alert, GCS 15. Normal gait. Vital Signs: 10:26 BP 128 / 91; Pulse 89; Resp 17; Temp 97.8; Pulse Ox 98% ; Weight 70.76 kg; Height 5 ft. hb 6 in. ; Pain 10/10; 11:30 BP 120 / 82; Pulse 81; Resp 16; Pulse Ox 96% on R/A; cm10 12:15 BP 138 / 82; Pulse 89; Resp 16; Pulse Ox 100% on R/A; cm10 14:00 BP 126 / 73; Pulse 77; Resp 16; Pulse Ox 97% on R/A; cm10 10:26 Body Mass Index 25.18 (70.76 kg, 167.64 cm) hb 10:26 Pain Scale: Adult hb MDM: 10:06 Patient medically screened. rn 12:18 ED course: Patient states no longer vomiting but still having abdominal cramping. rn 13:40 Differential diagnosis: Nonspecific abd pain, gastritis, cholecystitis, pancreatitis, rn appendicitis, diverticulitis, viral gastroenteritis, gastroenteritis. Data reviewed: vital signs, nurses notes. Data reviewed: lab test result(s), radiologic studies, CT scan, and as a result, I will discharge patient. Counseling: I had a detailed discussion with the patient and/or guardian regarding the historical points, exam findings, and any diagnostic results supporting the discharge/admit diagnosis, lab results, radiology results, the need for outpatient follow up, to return to the emergency department if symptoms worsen or persist or if there are any questions or concerns that arise at home. Special discussion: Based on the patient's Hx, exam, and Dx evaluation, there is no indication for emergent surgery or inpatient Tx. It is understood by the patient/guardian that if the Sx's persist or worsen they need to return immediately for re-evaluation. I discussed with the patient/guardian in detail that at this point there is no indication for admission to the hospital. It is understood, however, that if the symptoms persist or worsen the patient needs to return immediately for re-evaluation. ED course: No acute findings on CT abdomen pelvis, questionable small segment of colitis. Will discharge home with antibiotics and p.o. nausea medication. Patient overall improved. Normal vital signs. No other acute abnormalities and workup. I have personally reviewed all of the results, including but not limited to blood tests and imaging deemed necessary to safely discharge this patient at this time. All results given to and printed out for patient. I personally went over all the results with the patient and answered all questions. Patient will follow-up with PCP and or specialist as discussed. Return precautions given and understood.. 14:20 Response to treatment: the patient's symptoms have mildly improved after treatment, and rn as a result, I will discharge patient. 14:22 ED course: Patient observed here for 4 hours to make sure that she felt better which rn she does.. 10/08 10:13 Order name: CBC with Diff; Complete Time: 11: rn 10/08 10:13 Order name: CMP; Complete Time: 11: rn 10/08 10:13 Order name: Lipase; Complete Time: 11: rn 10/08 10:13 Order name: Test, Urine; Complete Time: 13:36 rn 10/08 10:13 Order name: Urinalysis w/ reflexes; Complete Time: 13:36 rn 10/08 10:13 Order name: Flu; Complete Time: 11: rn 10/08 10:13 Order name: SARS RAPID; Complete Time: 11: rn 10/08 10:13 Order name: CT Abd/Pelvis - IV Contrast Only; Complete Time: 13:36 rn 10/08 10:13 Order name: IV Saline Lock; Complete Time: 10:31 rn 10/08 10:13 Order name: Labs collected and sent; Complete Time: 10:31 rn Administered Medications: 11:00 Drug: NS 0.9% IV 1000 ml IV at 1 bolus Per protocol; 1000 mL bolus Route: IV; Rate: 1 cm10 bolus; Site: right antecubital; 12:48 Follow up: Response: No adverse reaction; IV Status: Completed infusion; IV Intake: cm10 1000ml 11:00 Drug: Famotidine IVP 20 mg IVP once; dilute with 10 mL 0.9% NaCl; give over 2 minutes cm10 Route: IVP; Site: right antecubital; 12:48 Follow up: Response: No adverse reaction cm10 11:00 Drug: Ondansetron IVP 4 mg IVP once; over 2 minutes Route: IVP; Site: right antecubital;cm10 12:48 Follow up: Response: No adverse reaction cm10 12:48 Drug: morphine IVP or IV 4 mg IVP once over 4 mins Route: IVP; Infused Over: 4 mins; cm10 Site: right antecubital; 14:48 Follow up: Response: No adverse reaction cm10 14:04 Drug: Ciprofloxacin PO 500 mg PO once Route: PO; cm10 14:48 Follow up: Response: No adverse reaction cm10 14:04 Drug: metroNIDAZOLE PO 500 mg PO once Route: PO; cm10 14:48 Follow up: Response: No adverse reaction cm10 14:04 Drug: Promethazine IVP 12.5 mg IVP once {Note: Diluted in NS.} Route: IVP; Site: right cm10 antecubital; 14:48 Follow up: Response: No adverse reaction cm10 Disposition Summary: 10/08/23 14:20 Discharge Ordered Notes: Location: Home rn Problem: new rn Symptoms: have improved rn Condition: Stable rn Diagnosis - Nausea with vomiting, unspecified rn - Diarrhea, unspecified rn - Infectious gastroenteritis and colitis, unspecified rn Followup: rn - With: Private Physician - When: As needed - Reason: Recheck today's complaints, Re-evaluation by your physician Discharge Instructions: - Discharge Summary Sheet rn - Diarrhea, Adult rn - Nausea and Vomiting, Adult rn - Colitis rn Forms: - Medication Reconciliation Form rn - Thank You Letter rn - Antibiotic consumer attorney - Prescription Opioid Use rn - Patient Portal Instructions rn - Leadership Thank You Letter rn - Work release form cm10 Prescriptions: - ondansetron 4 mg Oral Tablet,disintegrating - take 1 tablet ORAL route every 8 hours As needed; 10 tablet; Refills: 0, rn Product Selection Permitted - Flagyl 500 mg Oral Tablet - take 1 tablet ORAL route every 12 hours for 7 days; 14 tablet; Refills: 0, rn Product Selection Permitted - Cipro 500 mg Oral Tablet - take 1 tablet ORAL route every 12 hours for 7 days; 14 tablet; Refills: 0, rn Product Selection Permitted - Tramadol 50 mg Oral Tablet - take 1 tablet ORAL route every 8 hours as needed; 12 tablet; Refills: 0, rn Product Selection Permitted Signatures: Dispatcher [employer] EDMS Coello, Eduin, MD MD rn Brown, Shadia, RN RN hb Stiven, Bita, RN RN cm10
--- NOTE | 2023-10-08 14:20 | ER ---
Nurse's Notes [facility] Name: Neelima Nix Age: 22 yrs Sex: Female : 2000 Arrival Date: 10/08/2023 Time: 09:58 Bed 15 Private MD: Diagnosis: Nausea with vomiting, unspecified;Diarrhea, unspecified;Infectious gastroenteritis and colitis, unspecified Presentation: 10/08 10:26 Chief complaint: Patient states: N/V, chills. Coronavirus screen: Client denies travel hb out of the [place] in the last 14 days. chills, fatigue, nausea, vomiting. Client presents with at least one sign or symptom that may indicate coronavirus-19. Standard/surgical mask placed on the client. Ebola Screen: Patient denies travel to an Ebola-affected area in the 21 days before illness onset. Initial Sepsis Screen: Does the patient meet any 2 criteria? No. Patient's initial sepsis screen is negative. Risk Assessment: Do you want to hurt yourself or someone else? Patient reports no desire to harm self or others. Onset of symptoms was October 08, 2023. 10:26 Method Of Arrival: Ambulatory hb 10:26 Acuity: MACI 3 hb 14:49 Initial Sepsis Screen: Does the patient have a suspected source of infection? No. cm10 Patient's initial sepsis screen is negative. Triage Assessment: 10:27 General: Appears uncomfortable, ill, Behavior is calm, cooperative, appropriate for ll1 age. General: Reports chills for feeling ill for fatigue for. GI: Reports nausea, vomiting. 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 - Social history:: Smoking status: Patient denies any tobacco usage or history of. - Family history:: not pertinent. - Hospitalizations: : No recent hospitalization is reported. Screenin:00 [facility] ED Fall Risk Assessment (Adult) History of falling in the last 3 months, cm10 including since admission No falls in past 3 months (0 pts) Confusion or Disorientation No (0 pts) Intoxicated or Sedated No (0 pts) Impaired Gait No (0 pts) Mobility Assist Device Used No (0 pt) Altered Elimination No (0 pt) Score/Fall Risk Level 0 - 2 = Low Risk Oriented to surroundings, Maintained a safe environment, Hourly rounding (assess needs \T\ fall precautionary measures) done. Abuse screen: Denies threats or abuse. Denies injuries from another. Nutritional screening: No deficits noted. Tuberculosis screening: No symptoms or risk factors identified. Assessment: 11:00 General: Appears in no apparent distress. uncomfortable, Behavior is calm, cooperative. cm10 Pain: Complains of pain in abdomen. Neuro: No deficits noted. Level of Consciousness is awake, alert, obeys commands, Oriented to person, place, time, situation. Cardiovascular: No deficits noted. Capillary refill. Respiratory: No deficits noted. Airway is patent Respiratory effort is even, unlabored, Respiratory pattern is regular, symmetrical. GI: Abdomen is flat, Bowel sounds present X 4 quads. Reports lower abdominal pain, upper abdominal pain, nausea, vomiting, since This morning. : No deficits noted. No signs and/or symptoms were reported regarding the genitourinary system. EENT: No deficits noted. No signs and/or symptoms were reported regarding the EENT system. Derm: No deficits noted. No signs and/or symptoms reported regarding the dermatologic system. Skin is intact, Skin is pink, warm \T\ dry. Musculoskeletal: No deficits noted. No signs and/or symptoms reported regarding the musculoskeletal system. Range of motion: intact in all extremities. 11:50 Reassessment: Pt reporting increased abdominal pain at this time. Provider made aware. cm10 13:00 Reassessment: Patient appears in no apparent distress at this time. Patient and/or cm10 family updated on plan of care and expected duration. Pain level reassessed. Patient is alert, oriented x 3, equal unlabored respirations, skin warm/dry/pink. 14:12 Reassessment: Pt updated on plan of care at this time. Pt medicated per OCT. Pt eating cm10 ice chips and tolerating them well. 14:37 Reassessment: Awaiting completion of Phenergan for discharge. cm10 Vital Signs: 10:26 BP 128 / 91; Pulse 89; Resp 17; Temp 97.8; Pulse Ox 98% ; Weight 70.76 kg; Height 5 ft. hb 6 in. ; Pain 10/10; 11:30 BP 120 / 82; Pulse 81; Resp 16; Pulse Ox 96% on R/A; cm10 12:15 BP 138 / 82; Pulse 89; Resp 16; Pulse Ox 100% on R/A; cm10 14:00 BP 126 / 73; Pulse 77; Resp 16; Pulse Ox 97% on R/A; cm10 10:26 Body Mass Index 25.18 (70.76 kg, 167.64 cm) hb 10:26 Pain Scale: Adult hb ED Course: 10:00 Patient arrived in ED. rg4 10:06 Eduin Coello MD is Attending Physician. rn 10:14 Inserted saline lock: 20 gauge in right antecubital area, using aseptic technique. hb Blood collected. 10:26 Arm band placed on Patient placed in an exam room, on a stretcher. hb 10:28 Triage completed. hb 10:31 Flu Sent. hb 10:31 SARS RAPID Sent. hb 10:31 CBC with Diff Sent. hb 10:31 CMP Sent. hb 10:31 Lipase Sent. hb 10:31 Test, Urine Sent. hb 11:21 Bita Saleem, ISABEL is Primary Nurse. cm10 11:24 Patient has correct armband on for positive identification. Bed in low position. Call cm10 light in reach. Side rails up X2. Provided Education on: ER process and procedures. . 12:44 Radiology exam delayed due to test not completed at this time. ls3 13:11 CT Abd/Pelvis - IV Contrast Only In Process Unspecified. EDMS 14:48 No provider procedures requiring assistance completed. IV discontinued, intact, cm10 bleeding controlled, No redness/swelling at site. Pressure dressing applied. Administered Medications: 11:00 Drug: NS 0.9% IV 1000 ml IV at 1 bolus Per protocol; 1000 mL bolus Route: IV; Rate: 1 cm10 bolus; Site: right antecubital; 12:48 Follow up: Response: No adverse reaction; IV Status: Completed infusion; IV Intake: cm10 1000ml 11:00 Drug: Famotidine IVP 20 mg IVP once; dilute with 10 mL 0.9% NaCl; give over 2 minutes cm10 Route: IVP; Site: right antecubital; 12:48 Follow up: Response: No adverse reaction cm10 11:00 Drug: Ondansetron IVP 4 mg IVP once; over 2 minutes Route: IVP; Site: right antecubital;cm10 12:48 Follow up: Response: No adverse reaction cm10 12:48 Drug: morphine IVP or IV 4 mg IVP once over 4 mins Route: IVP; Infused Over: 4 mins; cm10 Site: right antecubital; 14:48 Follow up: Response: No adverse reaction cm10 14:04 Drug: Ciprofloxacin PO 500 mg PO once Route: PO; cm10 14:48 Follow up: Response: No adverse reaction cm10 14:04 Drug: metroNIDAZOLE PO 500 mg PO once Route: PO; cm10 14:48 Follow up: Response: No adverse reaction cm10 14:04 Drug: Promethazine IVP 12.5 mg IVP once {Note: Diluted in NS.} Route: IVP; Site: right cm10 antecubital; 14:48 Follow up: Response: No adverse reaction cm10 Medication: 11:00 VIS not applicable for this client. cm10 Intake: 12:48 IV: 1000ml; Total: 1000ml. cm10 Outcome: 14:20 Discharge ordered by . rn 14:48 Discharged to home ambulatory, with family, cm10 14:48 Condition: good 14:48 Discharge instructions given to patient, Instructed on discharge instructions, follow up and referral plans. medication usage, Demonstrated understanding of instructions, follow-up care, medications, Prescriptions given X 4, 14:49 Patient left the ED. cm10 Signatures: Dispatcher [employer] EDEduin Akhtar MD MD rn Baxter, Heather, RN RN hb Garcia, Rubi rg4 [place]3 Amarilis Schmid RN RN ll1 Bita Saleem RN RN cm10
[2023-10-08 15:09] VITALS: BP 126/73; TEMP 97.8; O2SAT 97
== END ==
LOC: ER 09:58
DX: A09 Infectious gastroenteritis and colitis, unspecified (principal); Z11.52 Encounter for screening for COVID-19
CPT/HCPCS: 85025; 81001; 36415; 81025; 83690; 80053; 87804 ×2; 74177; 87811; Q9967; J2550; J2405; J7030; 96361; 96374; 96375; 99284

== ENCOUNTER → 2023-10-27 | Emergency (ER) | payer BC ==
--- OUTSIDE RECORDS SUMMARY | 2023-10-27 07:10 | XMS REPORT | Continuity of Care Document ---
Author Name Unknown Address [address] [facility] [address] [place] [address] [facility] thconnect Address [address] [facility] [address] [place] [address] Care Team Providers Care Log Sorting Supervisor Name Role Phone KENNETH WOOD Primary Care Physician Unavailab le KODAK_GCBZW_Melly_Jet Attending Clinician Unavaila KENNETH Astudillo Attending Clinician Unavailable Kenneth Wood MD Attending Clinician [phone] Garrett Dillard MD Attending Clinician [phone] Doctor Unassigned, [place] Attending Clinician U navailable Only, Adc Test Attending Clinician Unavailable Pob, [facility] Lab Main Attending Clinician Unavailabl e KODAK_GCBZW_Melly_S Admitting Clinician UnavailKENNETH Jackson Admitting Clinician Unavailable Kenneth Wood MD Admitting Clinician [phone] Payers Payer Name Policy Type Policy Number Effective Date Expirati on Date Source ADMINISTRATIVE CONCEPTS - [facility] (INDEMNITY) [id number] [place] [id number] 2020 00:00:00 [place] [id number] 2020 00:00:00 [place] OUT OF STATE [id number] 2020 00:00:00 [facility] MEDICAID [id number] 2021 00:00:00 [facility] [id number] 00:00:00 [place] [id number] 2020 00:00:00 [employer] [id number] 2019 00:00:00 Problems Condition Name Condition Details [...] delivery Disease Active 2020-08 2-20 00:00: 00 [facility] Liveborn, born in hospital Liveborn, born in hospital Disease Active 2020-08 2-07 00:00: 00 [facility] Encounter for elective induction of labor Encounter for elective induction of labor Disease Active 2020-08 2-06 00:00: 00 [facility] Dry skin Dry skin Disease Active 9-08 00:00: 00 [facility] Supervisio n of high risk in third trimester Supervisio n of high risk in third trimester Disease Active 8-10 00:00: 00 [facility] Screening for genetic disease carrier status Screening for genetic disease carrier status Disease Active 6-17 00:00: 00 [facility] Underweigh t Underweigh t Disease Active 5-23 00:00: 00 [facility] Chlamydia trachomati s infection of lower genitourin ruslan sites Chlamydia trachomati s infection of lower genitourin ruslan sites Disease Active 4-30 00:00: 00 [facility] Missed menses Missed menses Disease Active 4-12 00:00: 00 [facility] Allergies, Adverse Reactions, Alerts Allergy Name Allergy Type Status Severity Reaction(s) Onset Date Inactive Date Treating Clinician Comments Source NO KNOWN ALLERGIE S Drug Class Active [facility] Social History Social Habit Start Date Stop Date Quantity Comments Source ASSERTION 2020-11-01 00:00:00 [facility] Exposure to SARS-CoV-2 (event) Not sure [facility] Alcohol intake 2021-09-23 00:00:00 2021-09-23 00:00:00 Ex-drinker (finding) [facility] Tobacco use and exposure 2020-11-25 00:00:00 2020-11-25 00:00:00 Never used [facility] Sex Assigned At 2000 00:00:00 2000 00:00:00 [facility] Smoking Status Start Date Stop Date Source Never Smoker [facility] Medications Ordered Medication Name Filled Medication Name Start Date Stop Date Current Medication? 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 Dep[employer] Family [employer] Consultant a 150 mg/mL intramuscul ar suspensionI nject 1 mL every 3 months by intramuscul ar route. 10-04 08:56: 22 No Depo-Prove ra 150 mg/mL intramuscu lar suspension Inject 1 mL every 3 months by intramuscu lar route. [facility] Medical valacyclovi r 500 mg tablet Take 1 tablet twice a day by oral route for 5 days. valacyclovi r 500 mg tablet Take 1 tablet twice a day by oral route for 5 days. 09-09 00:00: 00 No 1 BID valacyclov ir 500 mg tablet Take 1 tablet twice a day by oral route for 5 days. [facility] miSOPROStoL 200 mcg tablet 09-23 00:00: 00 09-25 05:59 :00 No [id number] 200ug Take 1 tablet by mouth 2 (two) times daily for 1 day. Take the night before and the morning of the procedure. [facility] COVID-19 test specimen collect Misc 08-29 00:00: 00 09-23 00:00 :00 No TEST DIRECTED TODAY [facility] ID NOW COVID-19 TEST KIT Kit 08-22 00:00: 00 09-23 00:00 :00 No TEST DIRECTED TODAY [facility] PNV 67-iron ps-folate no.1-dha (VITAFOL ULTRA) 29 mg iron- 1 mg-200 mg Cap 2020-08 00:00: 00 Yes [id number] 1{capsu le} Take 1 capsule by mouth daily. [facility] docusate calcium 240 mg capsule 2020-08 00:00: 00 Yes [id number] 102 240mg Take 1 capsule by mouth once daily as needed for Constipati on. [facility] ferrous sulfate 325 mg (65 mg iron) tablet 2020-08 00:00: 00 Yes [id number] 102 325mg Take 1 tablet by mouth daily. [facility] ibuprofen 600 mg tablet 2020-08 00:00: 00 Yes [id number] 102 600mg Take 1 tablet by mouth every 6 (six) hours as needed (Pain). Take with food or milk. [facility] PNV 67-iron ps-folate no.1-dha (VITAFOL ULTRA) 29 mg iron- 1 mg-200 mg Cap 2020-08 00:00: 00 Yes [id number] 1{capsu le} Take 1 capsule by mouth daily. [facility] docusate calcium 240 mg capsule 2020-08 00:00: 00 Yes [id number] 102 240mg Take 1 capsule by mouth once daily as needed for Constipati on. [facility] ferrous sulfate 325 mg (65 mg iron) tablet 2020-08 00:00: 00 Yes [id number] 102 325mg Take 1 tablet by mouth daily. [facility] ibuprofen 600 mg tablet 2020-08 00:00: 00 Yes [id number] 102 600mg Take 1 tablet by mouth every 6 (six) hours as needed (Pain). Take with food or milk. [facility] PNV 67-iron ps-folate no.1-dha (VITAFOL ULTRA) 29 mg iron- 1 mg-200 mg Cap 2020-08 00:00: 00 Yes [id number] 1{capsu le} Take 1 capsule by mouth daily. [facility] docusate calcium 240 mg capsule 2020-08 00:00: 00 Yes [id number] 102 240mg Take 1 capsule by mouth once daily as needed for Constipati on. [facility] ferrous sulfate 325 mg (65 mg iron) tablet 2020-08 00:00: 00 Yes [id number] 102 325mg Take 1 tablet by mouth daily. [facility] ibuprofen 600 mg tablet 2020-08 00:00: 00 Yes [id number] 102 600mg Take 1 tablet by mouth every 6 (six) hours as needed (Pain). Take with food or milk. [facility] PNV 67-iron ps-folate no.1-dha (VITAFOL ULTRA) 29 mg iron- 1 mg-200 mg Cap 2020-08 00:00: 00 Yes [id number] 1{capsu le} Take 1 capsule by mouth daily. [facility] docusate calcium 240 mg capsule 2020-08 00:00: 00 Yes [id number] 102 240mg Take 1 capsule by mouth once daily as needed for Constipati on. [facility] ferrous sulfate 325 mg (65 mg iron) tablet 2020-08 00:00: 00 Yes [id number] 102 325mg Take 1 tablet by mouth daily. [facility] ibuprofen 600 mg tablet 2020-08 00:00: 00 Yes [id number] 102 600mg Take 1 tablet by mouth every 6 (six) hours as needed (Pain). Take with food or milk. [facility] PNV 67-iron ps-folate no.1-dha (VITAFOL ULTRA) 29 mg iron- 1 mg-200 mg Cap 2020-08 00:00: 00 Yes [id number] 1{capsu le} Take 1 capsule by mouth daily. [facility] ibuprofen 600 mg tablet 2020-08 00:00: 00 Yes [id number] 102 600mg Take 1 tablet by mouth every 6 (six) hours as needed (Pain). Take with food or milk. [facility] docusate calcium 240 mg capsule 2020-08 00:00: 00 09-23 00:00 :00 No [id number] 102 240mg Take 1 capsule by mouth once daily as needed for Constipati on. [facility] ferrous sulfate 325 mg (65 mg iron) tablet 2020-08 00:00: 00 09-23 00:00 :00 No [id number] 102 325mg Take 1 tablet by mouth daily. [facility] rho(D) immune globulin (RHOGAM) syringe 300 mcg 2020-08 09:37: 03 Yes 300ug 300 mcg, Intramuscu lar, ONCE, For 1 dose, Conditiona l, Routine [facility] HYDROcodone -acetaminop hen (NORCO 5) 5-325 mg tablet 1 tablet 2020-08 09:36: 15 Yes 1{tbl} 1 tablet, Oral, Q6HPRN, Starting on Wed07/22/21 at 0336, Until Discontinu ed, Routine, Pain (scale 7-10) [facility] ibuprofen (IBU) tablet 600 mg 2020-08 09:36: 15 Yes 600mg 600 mg, Oral, Q6HPRN, Starting on Wed07/22/21 at 0336, Until Discontinu ed, Routine, Pain (scale 4-6) [facility] acetaminoph en (TYLENOL) tablet 650 mg 2020-08 09:36: 15 Yes 650mg 650 mg, Oral, Q6HPRN, Starting on Wed07/22/21 at 0336, Until Discontinu ed, Routine, Pain (scale 1-3) [facility] diphenhydrA MINE (BENADRYL) tablet 25 mg 2020-08 09:36: 15 Yes 25mg 25 mg, Oral, Q6HPRN, Starting on Wed07/22/21 at 0336, Until Discontinu ed, Routine, Sleep, Itching [facility] ondansetron (ZOFRAN (PF)) injection 4 mg 2020-08 09:36: 15 Yes 4mg 4 mg, Slow IV Push, Q8HPRN, Starting on Wed07/22/21 at 0336, Until Discontinu ed, Routine, Nausea and Vomiting (N/V) [facility] simethicone (GAS RELIEF (SIMETHICON E)) chewable tablet 160 mg 2020-08 09:36: 15 Yes 160mg 160 mg, Oral, PC+HSPRN, Starting on Wed07/22/21 at 0336, Until Discontinu ed, Routine, Gas [facility] docusate calcium (SURFAK) capsule 240 mg 2020-08 09:36: 15 Yes 240mg 240 mg, Oral, QDAILYPRN, Starting on Wed07/22/21 at 0336, Until Discontinu ed, Routine, Constipati on [facility] magnesium hydroxide (MILK OF MAGNESIA) 400 mg/5 mL suspension 30 mL 2020-08 09:36: 15 Yes 30mL 30 mL, Oral, QDAILYPRN, Starting on Wed07/22/21 at 0336, Until Discontinu ed, Routine, Constipati on [facility] benzocaine- menthol (DERMOPLAST ) 20-0.5 % topical spray 2020-08 09:36: 14 Yes Topical, PRN, Starting on Wed07/22/21 at 0336, Until Discontinu ed, Routine, Perineum discomfort [facility] FENTanyl 2 mcg/mL + bupivacaine 0.125% in NS 250 mL epidural bag 2020-08 06:14: 00 07-22 13:14 :24 No Intra-op [facility] FENTanyl 2 mcg/mL + bupivacaine 0.125% in NS 250 mL epidural bag 2020-08 06:02: 00 07-22 13:14 :24 No Intra-op [facility] lidocaine-e pinephrine (XYLOCAINE W/EPINEPHRI NE) 1.5 %-1:200,000 injection 2020-08 05:58: 00 07-22 13:14 :24 No Intraderma l, ONCE INTRA PROCEDURE, Starting on Wed07/21/21 at 2358, Until Wed07/22/21 at 0714, Routine, Intra-op [facility] FENTanyl PF (SUBLIMAZE (PF)) injection 100 mcg 2020-08 00:19: 02 07-22 09:37 :04 No 100ug 100 mcg, Slow IV Push, Q1HPRN, 3 doses, Starting on Wed07/21/21 at 1819, Until Wed07/22/21 at 0337, Routine, Pain (scale 7-10) [facility] LR 1000 mL + oxytocin 20 units IV Solution 2020-08 00:10: 44 07-22 09:37 :04 No 2mU/min at 6-120 mL/hr, IV Infusion, TITRATE, Starting on Wed07/21/21 at 1810, Until Wed07/22/21 at 0337, IVY [facility] D5W-LR IV infusion 1,000 mL 2020-08 23:30: 00 07-22 09:37 :04 No 1000mL at 125 mL/hr, IV Infusion, CONTINUOUS , Starting on Wed07/21/21 at 1730, Until Wed07/22/21 at 0337, Routine [facility] lactated ringers IV infusion 500 mL 2020-08 23:22: 17 07-22 09:37 :04 No 500mL at 999 mL/hr, 500 mL, IV Infusion, PRN - SEE INSTRUCTIO NS, Starting on Wed07/21/21 at 1722, Until Wed07/22/21 at 0337, Routine [facility] PNV 67-iron ps-folate no.1-dha (VITAFOL ULTRA) 29 mg iron- 1 mg-200 mg Cap 2020-08 0-06 00:00: 00 Yes [id number] 1{capsu le} Take 1 capsule by mouth daily. [facility] PNV 67-iron ps-folate no.1-dha (VITAFOL ULTRA) 29 mg iron- 1 mg-200 mg Cap 2020-08 0-06 00:00: 00 Yes [id number] 1{capsu le} Take 1 capsule by mouth daily. [facility] PNV 67-iron ps-folate no.1-dha (VITAFOL ULTRA) 29 mg iron- 1 mg-200 mg Cap 2020-08 0-06 00:00: 00 Yes [id number] 1{capsu le} Take 1 capsule by mouth daily. [facility] PNV 67-iron ps-folate no.1-dha (VITAFOL ULTRA) 29 mg iron- 1 mg-200 mg Cap 2020-08 0-06 00:00: 00 Yes [id number] 1{capsu le} Take 1 capsule by mouth daily. [facility] PNV 67-iron ps-folate no.1-dha (VITAFOL ULTRA) 29 mg iron- 1 mg-200 mg Cap 2020-08 0-06 00:00: 00 Yes [id number] 1{capsu le} Take 1 capsule by mouth daily. [facility] PNV 67-iron ps-folate no.1-dha (VITAFOL ULTRA) 29 mg iron- 1 mg-200 mg Cap 2020-08 0-06 00:00: 00 Yes [id number] 1{capsu le} Take 1 capsule by mouth daily. [facility] PNV 67-iron ps-folate no.1-dha (VITAFOL ULTRA) 29 mg iron- 1 mg-200 mg Cap 2020-08 0-06 00:00: 00 Yes [id number] 1{capsu le} Take 1 capsule by mouth daily. [facility] PNV 67-iron ps-folate no.1-dha (VITAFOL ULTRA) 29 mg iron- 1 mg-200 mg Cap 2020-08 0-06 00:00: 00 Yes [id number] 1{capsu le} Take 1 capsule by mouth daily. [facility] PNV 67-iron ps-folate no.1-dha (VITAFOL ULTRA) 29 mg iron- 1 mg-200 mg Cap 2020-08 0-06 00:00: 00 Yes [id number] 1{capsu le} Take 1 capsule by mouth daily. [facility] PNV 67-iron ps-folate no.1-dha (VITAFOL ULTRA) 29 mg iron- 1 mg-200 mg Cap 2020-08 0-06 00:00: 00 Yes [id number] 1{capsu le} Take 1 capsule by mouth daily. [facility] PNV 67-iron ps-folate no.1-dha (VITAFOL ULTRA) 29 mg iron- 1 mg-200 mg Cap 2020-08 0-06 00:00: 00 Yes [id number] 1{capsu le} Take 1 capsule by mouth daily. [facility] PNV 67-iron ps-folate no.1-dha (VITAFOL ULTRA) 29 mg iron- 1 mg-200 mg Cap 2020-08 0-06 00:00: 00 Yes [id number] 1{capsu le} Take 1 capsule by mouth daily. [facility] PNV 67-iron ps-folate no.1-dha (VITAFOL ULTRA) 29 mg iron- 1 mg-200 mg Cap 2020-08 0-06 00:00: 00 Yes [id number] 1{capsu le} Take 1 capsule by mouth daily. [facility] PNV 67-iron ps-folate no.1-dha (VITAFOL ULTRA) 29 mg iron- 1 mg-200 mg Cap 2020-08 0-06 00:00: 00 Yes [id number] 1{capsu le} Take 1 capsule by mouth daily. [facility] PNV 67-iron ps-folate no.1-dha (VITAFOL ULTRA) 29 mg iron- 1 mg-200 mg Cap 2020-08 0- 00:00: 00 Yes [id number] 1{capsu le} Take 1 capsule by mouth daily. [facility] PNV 67-iron ps-folate no.1-dha (VITAFOL ULTRA) 29 mg iron- 1 mg-200 mg Cap 2020-08 0-06 00:00: 00 07-23 00:00 :00 No [id number] 1{capsu le} Take 1 capsule by mouth daily. [facility] lanolin 30 % Crea 04-22 00:00: 00 Yes [id number] 1{appli cator} Apply 1 Applicator to area(s) 2 (two) times daily. [facility] lanolin 30 % Crea 04-22 00:00: 00 Yes [id number] 1{appli cator} Apply 1 Applicator to area(s) 2 (two) times daily. [facility] lanolin 30 % Crea 0 04-22 00:00: 00 Yes [id number] 1{appli cator} Apply 1 Applicator to area(s) 2 (two) times daily. [facility] lanolin 30 % Crea 2020-0 04-22 00:00: 00 Yes [id number] 1{appli cator} Apply 1 Applicator to area(s) 2 (two) times daily. [facility] VITAFOL ULTRA 29 mg iron- 1 mg-200 mg Cap 04-22 00:00: 00 Yes 1{capsu le} Take 1 capsule by mouth daily. [facility] lanolin 30 % Crea 04-22 00:00: 00 Yes [id number] 1{appli cator} Apply 1 Applicator to area(s) 2 (two) times daily. [facility] VITAFOL ULTRA 29 mg iron- 1 mg-200 mg Cap 04-22 00:00: 00 Yes 1{capsu le} Take 1 capsule by mouth daily. [facility] lanolin 30 % Crea 0 04-22 00:00: 00 Yes [id number] 1{appli cator} Apply 1 Applicator to area(s) 2 (two) times daily. [facility] lanolin 30 % Crea 2020-0 04-22 00:00: 00 Yes [id number] 1{appli cator} Apply 1 Applicator to area(s) 2 (two) times daily. [facility] lanolin 30 % Crea 2020-0 04-22 00:00: 00 Yes [id number] 1{appli cator} Apply 1 Applicator to area(s) 2 (two) times daily. [facility] lanolin 30 % Crea 2020-0 04-22 00:00: 00 Yes [id number] 1{appli cator} Apply 1 Applicator to area(s) 2 (two) times daily. [facility] lanolin 30 % Crea 2020-0 04-22 00:00: 00 Yes [id number] 1{appli cator} Apply 1 Applicator to area(s) 2 (two) times daily. [facility] lanolin 30 % Crea 04-22 00:00: 00 07-03 00:00 :00 No [id number] 1{appli cator} Apply 1 Applicator to area(s) 2 (two) times daily. [facility] VITAFOL ULTRA 29 mg iron- 1 mg-200 mg Cap 04-22 00:00: 00 05-21 00:00 :00 No 1{capsu le} Take 1 capsule by mouth daily. [facility] 26-iron ps-folic-dh a (VITAFOL-ON E) 29 mg iron- 1 mg-200 mg per capsule 03-25 00:00: 00 Yes [id number] 1{capsu le} Take 1 capsule by mouth daily. [facility] 26-iron ps-folic-dh a (VITAFOL-ON E) 29 mg iron- 1 mg-200 mg per capsule 03-25 00:00: 00 Yes [id number] 1{capsu le} Take 1 capsule by mouth daily. [facility] 26-iron ps-folic-dh a (VITAFOL-ON E) 29 mg iron- 1 mg-200 mg per capsule 03-25 00:00: 00 Yes [id number] 1{capsu le} Take 1 capsule by mouth daily. [facility] 26-iron ps-folic-dh a (VITAFOL-ON E) 29 mg iron- 1 mg-200 mg per capsule 03-25 00:00: 00 05-07 00:00 :00 No [id number] 1{capsu le} Take 1 capsule by mouth daily. [facility] VITAFOL ULTRA 29 mg iron- 1 mg-200 mg Cap 03-25 00:00: 00 04-23 00:00 :00 No 1{capsu le} Take 1 capsule by mouth daily. [facility] Depo-[employer] Family [employer] Consultant a 150 mg/mL intramuscul ar suspension Inject 1 mL every 3 months by intramuscul ar route. [employer] a 150 mg/mL intramuscul ar suspension Inject 1 mL every 3 months by intramuscul ar route. No 1mL Depo-Prove ra 150 mg/mL intramuscu lar suspension Inject 1 mL every 3 months by intramuscu lar route. [facility] Vital Signs Vital Name Observation Time Observation Value Comments S didier Systolic blood pressure 2021-09-23 14:23:00 125 mm[Hg] [facility] Diastolic blood pressure 2021-09-23 14:23:00 76 mm[Hg] [facility] Heart rate 2021-09-23 14:23:00 67 /min [facility] Body temperature 2021-09-23 14:23:00 36.89 [facility] Respiratory rate 2021-09-23 14:23:00 18 /min [facility] Body height 2021-09-23 14:23:00 167.6 cm [facility] Body weight 2021-09-23 14:23:00 77.14 kg [facility] BMI 2021-09-23 14:23:00 27.45 kg/m2 [facility] Systolic blood pressure 2021-08-04 19:59:00 113 mm[Hg] [facility] Diastolic blood pressure 2021-08-04 19:59:00 77 mm[Hg] [facility] Heart rate 2021-08-04 19:59:00 90 /min [facility] Body temperature 2021-08-04 19:59:00 37.11 Frieda [facility] Respiratory rate 2021-08-04 19:59:00 18 /min [facility] Body height 2021-08-04 19:59:00 167.6 cm [facility] Body weight 2021-08-04 19:59:00 76.386 kg [facility] BMI 2021-08-04 19:59:00 27.18 kg/m2 [facility] Systolic blood pressure 2021-07-23 19:15:00 121 mm[Hg] [facility] Diastolic blood pressure 2021-07-23 19:15:00 75 mm[Hg] [facility] Heart rate 2021-07-23 19:15:00 106 /min [facility] Body temperature 2021-07-23 19:15:00 37.11 [facility] Respiratory rate 2021-07-23 19:15:00 20 /min [facility] Oxygen saturation in Arterial blood by Pulse oximetry 2021-07-23 13:45:00 99 /min [facility] Body height 2021-07-21 23:35:00 167.6 cm [facility] Body weight 2021-07-21 23:35:00 84.823 kg [facility] BMI 2021-07-21 23:35:00 30.18 kg/m2 [facility] Systolic blood pressure 2021-07-17 21:30:00 132 mm[Hg] [facility] Diastolic blood pressure 2021-07-17 21:30:00 81 mm[Hg] [facility] Heart rate 2021-07-17 21:30:00 78 /min [facility] Body temperature 2021-07-17 21:30:00 37.28 [facility]a [facility] Respiratory rate 2021-07-17 21:30:00 18 /min [facility] Body height 2021-07-17 21:30:00 167.6 cm [facility] Body weight 2021-07-17 21:30:00 85.872 kg [facility] BMI 2021-07-17 21:30:00 30.56 kg/m2 [facility] Systolic blood pressure 2021-07-08 21:59:00 112 mm[Hg] [facility] Diastolic blood pressure 2021-07-08 21:59:00 69 mm[Hg] [facility] Heart rate 2021-07-08 21:59:00 68 /min [facility] Body temperature 2021-07-08 21:59:00 36.94 [facility] Respiratory rate 2021-07-08 21:59:00 18 /min [facility] Body height 2021-07-08 21:59:00 167.6 cm [facility] Body weight 2021-07-08 21:59:00 82.645 kg [facility] BMI 2021-07-08 21:59:00 29.41 kg/m2 [facility] Systolic blood pressure 2021-07-03 21:49:00 122 mm[Hg] [facility] Diastolic blood pressure 2021-07-03 21:49:00 75 mm[Hg] [facility] Heart rate 2021-07-03 21:49:00 74 /min [facility] Body temperature 2021-07-03 21:49:00 36.78 [facility] Respiratory rate 2021-07-03 21:49:00 18 /min [facility] Body height 2021-07-03 21:49:00 167.6 cm [facility] Body weight 2021-07-03 21:49:00 83.099 kg [facility] BMI 2021-07-03 21:49:00 29.57 kg/m2 [facility] Systolic blood pressure 2021-06-24 15:29:00 127 mm[Hg] [facility] Diastolic blood pressure 2021-06-24 15:29:00 71 mm[Hg] [facility] Heart rate 2021-06-24 15:28:00 100 /min [facility] Body temperature 2021-06-24 15:28:00 36.94 Frieda [facility] Respiratory rate 2021-06-24 15:28:00 18 /min [facility] Body height 2021-06-24 15:28:00 167.6 cm [facility] Body weight 2021-06-24 15:28:00 82.328 kg [facility] BMI 2021-06-24 15:28:00 29.29 kg/m2 [facility] Oxygen saturation in Arterial blood by Pulse oximetry 2021-06-24 15:28:00 98 /min [facility] Systolic blood pressure 2021-06-18 16:24:00 127 mm[Hg] [facility] Diastolic blood pressure 2021-06-18 16:24:00 71 mm[Hg] [facility] Heart rate 2021-06-18 16:24:00 92 /min [facility] Body temperature 2021-06-18 16:24:00 37.33 [facility]a [facility] Respiratory rate 2021-06-18 16:24:00 19 /min [facility] Body height 2021-06-18 16:24:00 167.6 cm [facility] Body weight 2021-06-18 16:24:00 82.214 kg [facility] BMI 2021-06-18 16:24:00 29.25 kg/m2 [facility] Oxygen saturation in Arterial blood by Pulse oximetry 2021-06-18 16:24:00 99 /min [facility] Systolic blood pressure 2021-06-02 18:53:00 126 mm[Hg] [facility] Diastolic blood pressure 2021-06-02 18:53:00 77 mm[Hg] [facility] Heart rate 2021-06-02 18:53:00 81 /min [facility] Respiratory rate 2021-06-02 18:53:00 19 /min [facility] Body height 2021-06-02 18:53:00 167.6 cm [facility] Body weight 2021-06-02 18:53:00 81.818 kg [facility] BMI 2021-06-02 18:53:00 29.11 kg/m2 [facility] Oxygen saturation in Arterial blood by Pulse oximetry 2021-06-02 18:53:00 98 /min [facility] Systolic blood pressure 2021-05-19 18:44:00 114 mm[Hg] [facility] Diastolic blood pressure 2021-05-19 18:44:00 73 mm[Hg] [facility] Heart rate 2021-05-19 18:44:00 95 /min [facility] Body temperature 2021-05-19 18:44:00 36.78 [facility] Respiratory rate 2021-05-19 18:44:00 18 /min [facility] [facility] Body height 2021-05-19 18:44:00 167.6 cm [facility] Body weight 2021-05-19 18:44:00 79.011 kg [facility] BMI 2021-05-19 18:44:00 28.11 kg/m2 [facility] Oxygen saturation in Arterial blood by Pulse oximetry 2021-05-19 18:44:00 98 /min [facility] Systolic blood pressure 2021-05-05 18:29:00 125 mm[Hg] [facility] Diastolic blood pressure 2021-05-05 18:29:00 76 mm[Hg] [facility] Heart rate 2021-05-05 18:29:00 81 /min [facility] Body temperature 2021-05-05 18:29:00 37.17 Frieda [facility] Respiratory rate 2021-05-05 18:29:00 18 /min [facility] Body height 2021-05-05 18:29:00 167.6 cm [facility] Body weight 2021-05-05 18:29:00 77.928 kg [facility] BMI 2021-05-05 18:29:00 27.73 kg/m2 [facility] Systolic blood pressure 2021-04-22 15:33:00 132 mm[Hg] [facility] Diastolic blood pressure 2021-04-22 15:33:00 76 mm[Hg] [facility] Heart rate 2021-04-22 15:33:00 89 /min [facility] Respiratory rate 2021-04-22 15:33:00 18 /min [facility] Body height 2021-04-22 15:33:00 167.6 cm [facility] Body weight 2021-04-22 15:33:00 76.771 kg [facility] BMI 2021-04-22 15:33:00 27.32 kg/m2 [facility] Oxygen saturation in Arterial blood by Pulse oximetry 2021-04-22 15:33:00 98 /min [facility] Procedures Procedure Date / Time Performed Performing Clinician Source CBC WITH DIFF 2021-07-23 09:42:00 Fish, Kenneth [facility] CENTRAL NEURAXIAL BLOCK 2021-07-22 06:04:56 Garrett Dillard [facility] CBC WITH DIFF 2021-07-21 23:59:00 Fish, Kenneth [facility] HEPATITIS B SURFACE ANTIGEN 2021-07-21 23:59:00 Fish, Kenneth [facility] ADC OR SHWETHA ONLY - RPR 2021-07-21 23:59:00 Fish, Kenneth [facility] HIV 1/2 AG-AB WITH REFLEX 2021-07-21 23:59:00 Fish, [facility] HB ABO GROUPING 2021-07-21 23:55:00 [facility] IMM[facility]E GLOBULIN 2021-07-21 23:55:00 Fish, Kristan perales [facility] HOSPITAL ADMISSION 2021-07-21 06:01:00 Doctor Un assigned, Quimby [facility] CONSENT/REFUSAL FOR DIAGNOSIS AND TREATMENT 2021-07-18 19:32:30 Doctor Unassigned, Quimby [facility] ASSIGNMENT OF BENEFITS 2021-07-18 19:31:56 Docto r Unassigned, Quimby [facility] ASSIGNMENT OF BENEFITS 2021-07-18 19:17:37 Docto r Unassigned, Quimby [facility] DME/SUPPLY JUSTIFICATION 2021-07-14 06:01:00 Doc tor Unassigned, Quimby [facility] POCT URINALYSIS W/O SPECIFIC GRAVITY 2021-07-03 21:50:00 Fish, Kenneth [facility] DME/SUPPLY JUSTIFICATION 2021-06-26 06:01:00 Doc tor Unassigned, Quimby [facility] POCT URINALYSIS W/O SPECIFIC GRAVITY 2021-06-24 15:31:00 Fish, Kenneth [facility] POCT URINALYSIS W/O SPECIFIC GRAVITY 2021-06-18 16:27:00 Fish, [facility] POCT URINALYSIS W/O SPECIFIC GRAVITY 2021-06-02 18:55:00 Fish, Kenneth [facility] TDAP VACCINE, >11 YRS, IM 2021-05-19 19:11:46 Felipe [facility] POCT URINALYSIS W/O SPECIFIC GRAVITY 2021-05-19 18:47:00 Felipe [facility] ASSIGNMENT OF BENEFITS 2021-05-06 15:26:04 Docto r Unassigned, Quimby [facility] POCT URINALYSIS W/O SPECIFIC GRAVITY 2021-05-05 18:30:00 FishKenneth [facility] POCT URINALYSIS W/O SPECIFIC GRAVITY 2021-04-22 15:36:00 Felipe [facility] Plan of Care Planned Activity Planned Date Details Comments Source Future Appointment 2024-07-21 08:45:00 Renea alonzo, [address]; [address], [address] Future Appointment 2023-12-28 08:30:00 Gcbzw Gcb zw Ma Schedule, [address]; [place] [address], [address] Encounters Start Date/Time End Date/Time Encounter Type Admission Type Attending [facility] Care Department Encounter ID Source 2023-10-04 00:00:00 2023-10-04 00:00:00 Renea Pickard MD: [address], [address], [place] [address] , Ph. [facility] - [facility]BZ[facility]* [id number] [facility] 2023-09-15 00:00:00 2023-09-15 00:00:00 Outpatient GC_GCBZW_Ka diyala_S [facility] [id number] [facility] 2023-09-09 00:00:00 2023-09-09 00:00:00 Outpatient GC_GCBZW_Ka diyala_S [facility] [id number] [facility] 2023-09-09 00:00:00 2023-09-09 00:00:00 YUDI Stevens: [address], [address], [place] [id number] , Ph. [facility] - GC_GCBZW_La dutch Swenson* [id number] [facility] 2023-09-02 00:00:00 2023-09-02 00:00:00 Outpatient GC_GCBZW_Ka diyala_S PRIV PRIV [id number] [facility] 2023-08-26 00:00:00 2023-08-26 00:00:00 Outpatient GC_GCBZW_Ka diyala_S PRIV PRIV [id number] [facility] 2023-08-20 00:00:00 2023-08-20 00:00:00 Outpatient GC_GCBZW_Ka diyala_S PRIV PRIV [id number] [facility] 2023-08-13 00:00:00 2023-08-13 00:00:00 Outpatient GC_GCBZW_Ka diyala_S PRIV PRIV [id number] [facility] 2023-06-12 00:00:00 2023-06-12 00:00:00 Outpatient GC_GCBZW_Ka diyala_S PRIV PRIV [id number] [facility] 2023-06-12 00:00:00 2023-06-12 00:00:00 Outpatient GC_GCBZW_Ka diyala_S PRIV PRIV [id number] [facility] 2023-06-12 00:00:00 2023-06-12 00:00:00 Outpatient GC_GCBZW_Ka diyala_S PRIV PRIV [id number] [facility] 2023-06-12 00:00:00 2023-06-12 00:00:00 Outpatient GC_GCBZW_Ka diyala_S PRIV PRIV [id number] [facility] 2023-06-12 00:00:00 2023-06-12 00:00:00 Outpatient GC_GCBZW_Ka diyala_S PRIV PRIV [id number] [facility] 2023-06-09 00:00:00 2023-06-09 00:00:00 Outpatient GC_GCBZW_Ka diyala_S PRIV PRIV [id number] [facility] 2023-06-09 00:00:00 2023-06-09 00:00:00 Outpatient GC_GCBZW_Ka diyala_S PRIV PRIV [id number] [facility] 2023-05-15 00:00:00 2023-05-15 00:00:00 Outpatient GC_GCBZW_Ka diyala_S PRIV PRIV [id number] [facility] 2023-04-17 00:00:00 2023-04-17 00:00:00 Outpatient GC_GCBZW_Ka diyala_S PRIV PRIV [id number] [facility] 2023-04-17 00:00:00 2023-04-17 00:00:00 Outpatient GC_GCBZW_Ka diyala_S PRIV PRIV [id number] [facility] 2023-03-23 00:00:00 2023-03-23 00:00:00 Outpatient GC_GCBZW_Ka diyala_S PRIV PRIV [id number] [facility] 2023-03-23 00:00:00 2023-03-23 00:00:00 Outpatient GC_GCBZW_Ka diyala_S PRIV PRIV [id number] [facility] 2023-03-17 00:00:00 2023-03-17 00:00:00 Outpatient GC_GCBZW_Ka diyala_S PRIV PRIV [id number] [facility] 2023-03-10 00:00:00 2023-03-10 00:00:00 Outpatient GC_GCBZW_Ka diyala_S PRIV PRIV [id number] [facility] 2023-03-09 00:00:00 2023-03-09 00:00:00 Outpatient GC_GCBZW_Ka diyala_S PRIV PRIV [id number] [facility] 2021-10-17 14:45:00 2021-10-17 14:45:00 Outpatient R KENNETH WOOD [facility] [id number] General acute hospital 2021-09-30 13:30:00 2021-09-30 13:30:00 Outpatient R KENNETH WOOD [facility] [id number] General acute hospital 2021-09-23 08:15:00 2021-09-23 08:52:13 Outpatient R KENNETH WOOD [facility] [id number] General acute hospital 2021-09-23 08:15:00 2021-09-23 08:52:13 Routine Visit Kenneth Wood [facility] 1.2840.114 350.1.13.10 4.2.7.2.686 [id number] [facility] 2021-08-25 16:15:00 2021-08-25 16:15:00 Outpatient R KENNETH WOOD [facility] [id number] General acute hospital 2021-08-04 13:30:00 2021-08-04 14:17:44 Outpatient R KENNETH WOOD [facility] [id number] General acute hospital 2021-08-04 13:30:00 2021-08-04 14:17:44 Routine Visit Kenneth Wood [facility] 1.2840.114 350.1.13.10 4.2.7.2.686 [id number] 134 [id number] [facility] 2021-07-24 00:00:00 2021-07-24 00:00:00 Telephone Kenneth Wood [facility] 1.2840.114 350.1.13.10 4.2.7.2.686 [id number] 134 [id number] [facility] 2021-07-21 17:00:00 2021-07-23 15:40:00 Inpatient P KENNETH WOOD [facility] [id number] [facility] 2021-07-21 17:00:00 2021-07-23 15:40:00 Hospital Encounter Kenneth Wood [facility] 1.2.840.114 350.1.13.10 4.2.7.2.686 [id number] [facility] 2021-07-21 23:53:00 2021-07-22 07:08:00 [facility].114 350.1.13.10 4.2.7.2.686 [id number] [facility] 2021-07-21 21:00:27 2021-07-21 21:00:27 Anesthesia Event Nishant [facility] 1.2.840.114 350.1.13.10 4.2.7.2.686 [id number] [facility] 2021-07-21 00:00:00 2021-07-21 00:00:00 Orders Only Doctor Unassigned, Quimby [facility] 1.2.840.114 350.1.13.10 4.2.7.2.686 [id number] [id number] [facility] 2021-07-18 13:18:48 2021-07-18 13:33:48 Laboratory Only Only, Adc Test Felipe Kenneth [facility] 1.2.840.114 350.1.13.10 4.2.7.2.686 [id number] [facility] 2021-07-18 13:15:00 2021-07-18 13:15:00 Outpatient R KENNETH WOOD [facility] [id number] General acute hospital 2021-07-18 00:00:00 2021-07-18 00:00:00 Orders Only Doctor Unassigned, Quimby [facility] 1.2.840.114 350.1.13.10 4.2.7.2.686 [id number] [facility] 2021-07-17 15:30:00 2021-07-17 15:54:49 Outpatient R KENNETH WOOD [facility] [id number] General acute hospital 2021-07-17 15:13:26 2021-07-17 15:54:49 Routine Visit Felipe Kenneth [facility] 1.2.840.114 350.1.13.10 4.2.7.2.686 [id number] 134 [id number] [facility] 2021-07-14 00:00:00 2021-07-14 00:00:00 Telephone Felipe [facility] 1.2.840.114 350.1.13.10 4.2.7.2.686 [id number] 134 [id number] [facility] 2021-07-14 00:00:00 2021-07-14 00:00:00 Orders Only Doctor Unassigned, Quimby [facility] 1.2.840.114 350.1.13.10 4.2.7.2.686 [id number] [facility] 2021-07-08 15:16:42 2021-07-08 16:14:36 Routine Visit Felipe Kenneth [facility] 1.2.840.114 350.1.13.10 4.2.7.2.686 [id number] 134 [id number] [facility] 2021-07-08 15:15:00 2021-07-08 16:14:36 Outpatient R KENNETH WOOD [facility] [id number] General acute hospital 2021-07-03 14:59:33 2021-07-03 16:06:04 Routine Visit Felipe Kenneth [facility] 1.2.840.114 350.1.13.10 4.2.7.2.686 [id number] [facility] 2021-07-03 14:45:00 2021-07-03 16:06:04 Outpatient R KENNETH WOOD [facility] [id number] General acute hospital 2021-06-26 00:00:00 2021-06-26 00:00:00 Orders Only Doctor Unassigned, Quimby [facility] 1.84.114 350.1.13.10 4.2.7.2.686 [id number] [facility] 2021-06-24 09:23:01 2021-06-24 10:01:58 Routine Visit FelipeKenneth [facility] 1..114 350.1.13.10 4.2.7.2.686 [id number] [facility] 2021-06-24 09:15:00 2021-06-24 10:01:58 Outpatient R KENNETH WOOD [facility] [id number] General acute hospital 2021-06-19 00:00:00 2021-06-19 00:00:00 Telephone FelipeKenneth [facility] 1..114 350.1.13.10 4.2.7.2.686 [id number] 134 [id number] [facility] 2021-06-18 11:00:00 2021-06-18 11:50:06 Outpatient R KENNETH WOOD [facility] [id number] General acute hospital 2021-06-18 10:59:05 2021-06-18 11:50:06 Routine Visit FelipeKenneth [facility] 1..114 350.1.13.10 4.2.7.2.686 [id number] 134 [id number] [facility] 2021-06-16 11:00:00 2021-06-16 11:00:00 Outpatient R FELIPEKRISTANN [facility] [id number] General acute hospital 2021-06-02 13:45:41 2021-06-02 14:03:35 Routine Visit Kenneth Wood [facility] 1.114 350.1.13.10 4.2.7.2.686 [id number] 134 [id number] [facility] 2021-06-02 13:30:00 2021-06-02 13:30:00 Outpatient R KENNETH WOOD [facility] [id number] General acute hospital 2021-05-21 00:00:00 2021-05-21 00:00:00 Refill Kenneth Wood [facility] 1.114 350.1.13.10 4.2.7.2.686 [id number] 134 [id number] [facility] 2021-05-19 13:36:18 2021-05-19 14:15:21 Routine Visit Kenneth Wood [facility] 1.114 350.1.13.10 4.2.7.2.686 [id number] 134 [id number] [facility] 2021-05-19 13:30:00 2021-05-19 13:30:00 Outpatient R KENNETH WOOD [facility] [id number] General acute hospital 2021-05-06 11:15:00 2021-05-06 11:15:00 Outpatient R KENNETH WOOD [facility] [id number] General acute hospital 2021-05-06 10:27:20 2021-05-06 10:42:20 Physical Therapy Technician Visit Pob, Adc Lab Main Kenneth Wood [facility] 1..114 350.1.13.10 4.2.7.2.686 [id number] [facility] 2021-05-06 00:00:00 2021-05-06 00:00:00 Orders Only Doctor Unassigned, Quimby [facility] 1.114 350.1.13.10 4.2.7.2.686 [id number] [facility] 2021-05-05 12:52:05 2021-05-05 13:54:58 Routine Visit Kenneth Wood [facility] 1.2.840.114 350.1.13.10 4.2.7.2.686 [id number] 134 [id number] [facility] 2021-05-05 13:15:00 2021-05-05 13:15:00 Outpatient R KENNETH WOOD [facility] [id number] General acute hospital 2021-04-22 10:17:38 2021-04-22 11:07:22 Routine Visit Kenneth Wood [facility] 1.2.840.114 350.1.13.10 4.2.7.2.686 [id number] [facility] 2021-04-22 10:30:00 2021-04-22 10:30:00 Outpatient R KENNETH WOOD [facility] [id number] General acute hospital 2021-03-25 09:45:00 2021-03-25 09:45:00 Outpatient R KENNETH WOOD [facility] [id number] General acute hospital 2021-03-06 09:00:00 2021-03-06 09:00:00 Outpatient R [facility] [id number] [facility] 2021-02-27 13:00:00 2021-02-27 13:00:00 Outpatient R KENNETH WOOD [facility] [id number] General acute hospital 2021-01-30 11:00:00 2021-01-30 11:00:00 Outpatient R KENNETH WOOD [facility] [id number] General acute hospital 2021-01-02 11:00:00 2021-01-02 11:00:00 Outpatient R KENNETH WOOD [facility] [id number] General acute hospital 2020-12-12 08:45:00 2020-12-12 08:45:00 Outpatient KENNETH BENNETT [facility] [id number] General acute hospital 2020-12-05 08:30:00 2020-12-05 08:30:00 Outpatient KENNETH BENNETT [facility] [id number] General acute hospital 2020-11-25 09:30:00 2020-11-25 09:30:00 Outpatient KENNETH BENNETT [facility] [id number] General acute hospital Results Test Description Test Time Test Comments Results Result Co mments Source [facility] IMMUNE [id number] 13:55:37* Test Item Value Reference Range Interpretation Comme nts RHIG CANDIDATE? (test code = 5055) No- see comment Patient is not a candidate for RhIg- Patient is Rh Positive.Performed at [facility] Laboratory Services - [facility] Blood [address] [place] [address]Xrgh Free: [phone] No. [id number] [facility] CenterHepatitis B Surface [id number] 08:23:38 * Test Item Value Reference Range Interpretation Comme nts HBsAg Semi-Quantitative (manju t code = 5195-3) Negative Negative [facility] - [id number] 07:20:06* Test Item Value Reference Range Interpretation Comme nts RPR (Qualitative) (test code = 00102-9) Nonreactive Nonreactive Lab Interpretation (test cod e = 72599-5) Normal [facility]2 AG-AB WITH [id number] 01:28:25* Test Item Value Reference Range Interpretation Comme nts HIV Semi-quantitative (test code = 91218-3) Negative Negative ILIANA (test code = ILIANA) Non-reactive for HIV-1 antigen and HIV-1/HIV-2 antibodies. ?No laboratory evidence of HIV infection. ?Repeat in 2-4 weeks if acute HIV infection is suspected. [facility] Screen - ONCE [id number] 01:04:35 * Test Item Value Reference Range Interpretation Comme nts ABO & RH (test code = 20) A Positive Performed at [facility] Laboratory Services - [facility] Blood [address] [place], [place] [id number] Free: [phone] No. [id number] IAT (test code = 1185) Negative Performed at [facility] Laboratory [facility] Blood [address] [place], [place] [id number] Free: [phone] No. [id number] [facility] CenterCB with [id number] 00:35:16* Test Item Value Reference Range Interpretation [...] 32.0 g/dL 31.6-35.1 RDW-SD (test code = 64380-7) 42.9 fL 39.0-49.9 RDW-CV (test code = 788-0) 13.7 % 12.0-15.5 PLT (test code = 777-3) See_Comment [Automated messa ge] The system which generated this result transmitted reference range: 166 - 358 10*3/?L. The reference range was not used to interpret this result as normal/abnormal. MPV (test code = 89913-5) 10.8 fL 9.5-12.9 NRBC/100 WBC (test code = 4827695507) See_Comment [Automated me ssage] The system which generated this result transmitted reference range: 0.0 - 10.0 /100 WBCs. The reference range was not used to interpret this result as normal/abnormal. NRBC x10^3 (test code = 4900880906) <0.01 See_Comment [Automated me ssage] The system which generated this result transmitted reference range: 10*3/?L. The reference range was not used to interpret this result as normal/abnormal. GRAN MAT (NEUT) % (test code = 770-8) 75.2 % IMM GRAN % (test code = 1529679351) 0.50 % LYMPH % (test code = 736-9) 15.7 % MONO % (test code = 5905-5) 5.8 % EOS % (test code = 713-8) 2.6 % BASO % (test code = 706-2) 0.2 % GRAN MAT x10^3(ANC) (test code = 4344860827) 6.49 10*3/uL 1.88-7.09 IMM GRAN x10^3 (test code = 4360571227) 0.04 10*3/uL 0.00-0.06 LYMPH x10^3 (test code = 731-0) 1.35 10*3/uL 1.32-3.29 MONO x10^3 (test code = 742-7) 0.50 10*3/uL 0.33-0.92 EOS x10^3 (test code = 711-2) 0.22 10*3/uL 0.03-0.39 BASO x10^3 (test code = 704-7) <0.03 0.01-0.07 [facility] CenterPONE [facility]YS[facility] W/O SPECIFIC [id number] 21:50:00* Test Item Value Reference Range Interpretation [...] ve Lab Interpretation (test cod e = 11158-3) [facility] URINALYSIS W/O SPECIFIC [id number] 15:31:00* Test Item Value Reference Range Interpretation [...] ve Lab Interpretation (test cod e = 56787-3) [facility] URINALYSIS W/O SPECIFIC [id number] 16:27:00* Test Item Value Reference Range Interpretation [...] ve Lab Interpretation (test cod e = 62139-9) [facility] URINALYSIS W/O SPECIFIC [id number] 18:55:00* Test Item Value Reference Range Interpretation [...] ve Lab Interpretation (test cod e = 80077-5) Normal [facility] URINALYSIS W/O SPECIFIC [id number] 18:47:00* Test Item Value Reference Range Interpretation [...] ve Lab Interpretation (test cod e = 04321-2) Normal [facility] URINALYSIS W/O SPECIFIC [id number] 18:30:00* Test Item Value Reference Range Interpretation [...] ve Lab Interpretation (test cod e = 08181-8) Normal [facility] URINALYSIS W/O SPECIFIC [id number] 15:36:00* Test Item Value Reference Range Interpretation [...] ve Lab Interpretation (test cod e = 35370-2) Normal [facility]
--- NOTE | 2023-10-27 07:22 | EDPHYS ---
Physician Documentation [facility] Name: Neelima Nix Age: 22 yrs Sex: Female : 2000 Arrival Date: 10/27/2023 Time: 07:06 Bed Waiting Private MD: ED Physician Mike Weber HPI: 10/26 07:18 This 22 yrs old Black Female presents to ER via Unassigned with complaints of Sore ec2 Throat. 07:18 Patient arrives today for evaluation of sore throat. Patient reports that she had been ec2 having sore throat since yesterday. The patient otherwise felt in the left tonsil. Patient reports no swollen lymph node noted on the neck as well. Patient denies any fevers or chills, no cough or cold symptoms. Denies any congestion. Reports no medical problems, no daily medication use.. 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 - Social history:: Smoking status: Patient denies any tobacco usage or history of. ROS: 07:18 Constitutional: as per hpi ec2 Exam: 07:18 Constitutional: GEN: NAD Head: atraumatic Eyes: EOMI Ears: External ears are normal. ec2 Mouth: Posterior pharyngeal erythema, exudates on the left side, no abscess appreciated. No stridor, no issues with phonation or swallowing secretions. Neck: Anterior cervical lymphadenopathy noted. CV: regular rate LUNGS: no respiratory distress ABD: non-distended SKIN: no evidence of rashes MSK: no evidence of trauma NEURO: moves all extremities equally Vital Signs: 07:20 BP 143 / 86; Pulse 99; Resp 16; Temp 98.9; Pulse Ox 100% on R/A; Weight 74.84 kg; iw Height 5 ft. 6 in. ; Pain 8/10; 07:20 Body Mass Index 26.63 (74.84 kg, 167.64 cm) iw 07:20 Pain Scale: Adult iw MDM: 07:13 Patient medically screened. ec2 07:18 Data reviewed: vital signs. ED course: Patient arrives today for evaluation of sore ec2 throat. Examination remarkable for HEENT findings as noted above. Will treat empirically for strep throat with antibiotics, possible strep pharyngitis versus peritonsillar cellulitis, doubt viral infection given lack of constellation of symptoms. Patient otherwise well-appearing in no acute distress, will discharge home. Return precautions given. Will defer any labs given lack of systemic symptoms.. Administered Medications: No medications were administered Disposition Summary: 10/27/23 07:22 Discharge Ordered Notes: Location: Home ec2 Condition: Stable ec2 Diagnosis - Acute pharyngitis, unspecified ec2 Followup: ec2 - With: Private Physician - When: - Reason: Re-evaluation by your physician Discharge Instructions: - Discharge Summary Sheet ec2 - Pharyngitis ec2 Forms: - Work release form bc6 - Medication Reconciliation Form ec2 - Thank You Letter ec2 - Antibiotic Education ec2 - Prescription Opioid Use ec2 - Patient Portal Instructions ec2 - Leadership Thank You Letter ec2 Prescriptions: - Augmentin 875-125 mg Oral tablet - take 1 tablet ORAL route every 12 hours for 7 days; 14 tablet; Refills: 0, ec2 Product Selection Permitted Signatures: Paloma Goddard RN RN iw Mike Weber MD MD ec2
--- NOTE | 2023-10-27 07:22 | ER ---
Nurse's Notes [facility] Name: Neelima Nix Age: 22 yrs Sex: Female : 2000 Arrival Date: 10/27/2023 Time: 07:06 Bed Waiting Private MD: Diagnosis: Acute pharyngitis, unspecified Presentation: 10/26 07:20 Chief complaint: Patient states: sore throat since yesterday , left tonsil feels iw swollen. Coronavirus screen: At this time, the client does not indicate any symptoms associated with coronavirus-19. Ebola Screen: Patient negative for fever greater than or equal to 101.5 degrees Fahrenheit, and additional compatible Ebola Virus Disease symptoms Patient denies exposure to infectious person. Patient denies travel to an Ebola-affected area in the 21 days before illness onset. No symptoms or risks identified at this time. Initial Sepsis Screen: Does the patient meet any 2 criteria? No. Patient's initial sepsis screen is negative. Does the patient have a suspected source of infection? No. Patient's initial sepsis screen is negative. Risk Assessment: Do you want to hurt yourself or someone else? Patient reports no desire to harm self or others. Onset of symptoms was October 26, 2023. 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 - Social history:: Smoking status: Patient denies any tobacco usage or history of. Vital Signs: 07:20 BP 143 / 86; Pulse 99; Resp 16; Temp 98.9; Pulse Ox 100% on R/A; Weight 74.84 kg; iw Height 5 ft. 6 in. ; Pain 8/10; 07:20 Body Mass Index 26.63 (74.84 kg, 167.64 cm) iw 07:20 Pain Scale: Adult iw ED Course: 07:07 Patient arrived in ED. rg4 07:07 Mike Weber MD is Attending Physician. ec2 07:21 Triage completed. iw : Arm band placed on. iw : Paloma Goddard, RN is Primary Nurse. iw Administered Medications: No medications were administered Outcome: Discharge ordered by . ec2 : Discharged to home ambulatory, iw Condition: good : Discharge instructions given to patient, Instructed on discharge instructions, follow up and referral plans. medication usage, Demonstrated understanding of instructions, follow-up care, medications, Prescriptions given X 1, : Patient left the ED. iw Signatures: Paloma Goddard, RN RN Ailin Tarango rg4 Mike Weber MD MD ec2
[2023-10-27 07:37] VITALS: BP 143/86; TEMP 98.9; O2SAT 100
== END ==
LOC: ER 07:06
DX: J02.9 Acute pharyngitis, unspecified (principal)

== ENCOUNTER 2024-12-08 09:29 | Emergency (ER) | payer BC, SELFPAY ==
[2024-12-08] MEDS ORDERED: NA CHLORIDE 0.9% 1,000 ML ONE ×2 (09:44→11:17)
[2024-12-08] MEDS ORDERED: PROMETHAZINE INJ 25 MG/ML AMP ONE ×2 (09:44→12:52)
[2024-12-08] MEDS ORDERED: ONDANSETRON 4 MG/2 ML VIAL ONE (09:44)
[2024-12-08 10:18] LABS: Absolute Eosinophils 0.1 K/uL (0-0.5); Absolute Lymphocytes (CBC) 1.9 K/uL (0.7-4.9); Absolute Monocytes 0.3 K/uL (0.1-1.3); Basophils % 0.6 % (0-1.3); Eosinophils % 1.7 % (0-4.4); Hematocrit 44.1 % (36.0-45.0); Hemoglobin 15.3 g/dL (12.0-15.0); Lymphocytes % 25.9 % (15.3-44.8); MCH 32.2 pg (27.0-35.0); MCHC 34.7 g/dL (32.0-36.0); MCV 92.9 fL (80-100); Monocytes % 3.7 % (3.3-12.3); Neutrophils % 68.1 % (41.7-73.7); Nucleated Red Blood Cells % 0.1 % (0-0); Platelets 261 thou/uL (152-406); RBC Red Blood Cell Count 4.75 M/uL (3.86-4.86); Red Cell Distribution Width 12.7 % (12.1-15.2)
[2024-12-08 11:06] LABS: ALT/SGPT 26 U/L (13-56); AST/SGOT 11 U/L (15-37); Albumin 3.4 g/dL (3.4-5.0); Albumin/Globulin Ratio 1.2 (1.1-1.8); Alkaline Phosphatase 68 U/L (45-117); Anion Gap 11.4 mEq/L (5.0-15.0); BUN Blood Urea Nitrogen 7 mg/dL (7-18); Bicarbonate 19 mEq/L (21-32); Bilirubin Total 0.5 mg/dL (0.2-1.0); Globulin 2.9 g/dL (2.3-3.5); Glomerular Filtration Rate 107 ml/min (=/>90); Glucose Level 127 mg/dL (74-106); Lipase 13 U/L (13-75); Potassium 4.4 mEq/L (3.5-5.1); Protein, Total 6.3 g/dL (6.4-8.2); Sodium Level 141 mEq/L (136-145)
[2024-12-08] MEDS ORDERED: FAMOTIDINE 20 MG/2 ML VIAL IV ONE (11:17)
[2024-12-08] MEDS ORDERED: NA CHLORIDE 0.9% 50 ML ONE ×2 (11:18→12:53)
[2024-12-08 11:32] LABS: Specific Gravity 1.014 (1.005-1.030); Urine Bilirubin NEGATIVE (Negative); Urine Blood Negative (Negative); Urine Clarity Clear (Clear); Urine Color Light-Yellow (Yellow); Urine Glucose NEGATIVE (Negative); Urine Ketones 1+ (Negative); Urine Microscopic Reflex YN NO UMIC; Urine Nitrite NEGATIVE (Negative); Urine Protein NEGATIVE (Negative); Urine Urobilinogen Normal (Normal)
[2024-12-08 11:41] LABS: Barbiturates NEGATIVE (NEGATIVE); Benzodiazepines NEGATIVE (NEGATIVE); Cocaine NEGATIVE (NEGATIVE); METHAMPHETAM NEGATIVE (NEGATIVE); Methadone NEGATIVE (NEGATIVE); Opiates NEGATIVE (NEGATIVE); Phencyclidine NEGATIVE (NEGATIVE); THC Cannibis POSITIVE (NEGATIVE)
--- NOTE | 2024-12-08 11:42 | RAD REPORT ---
Procedure: Chest Single View HISTORY: Chest pain COMPARISON: none FINDINGS: The lungs appear clear of acute infiltrate. No significant pleural effusion noted. The heart is normal size. IMPRESSION: No acute abnormality is displayed.
--- NOTE | 2024-12-08 12:00 | EDPHYS ---
Physician Documentation [facility] Name: Neelima Nix Age: 24 yrs Sex: Female : 2000 Arrival Date: 12/08/2024 Time: 09:29 Bed 16 Private MD: ED Physician Hugo Hyman HPI: 12/08 11:50 This 24 yrs old Black Female presents to ER via EMS with complaints of Nausea/Vomiting. melissa 11:50 The patient presents to the emergency department with nausea, vomiting, that is melissa intermittent, described as bilious. Onset: The symptoms/episode began/occurred 1 day(s) ago. Possible causes: antibiotics, pot. The symptoms are aggravated by nothing. The symptoms are alleviated by nothing. Associated signs and symptoms: The patient has no apparent associated signs or symptoms. Severity of symptoms: At their worst the symptoms were mild moderate in the emergency department the symptoms are unchanged. The patient has not experienced similar symptoms in the past. 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 - Infectious Disease History:: Denies. - Social history:: Smoking status: Patient denies any tobacco usage or history of. ROS: 11:55 Constitutional: Negative for fever, chills, and weight loss, Eyes: Negative for injury, melissa pain, redness, and discharge, ENT: Negative for injury, pain, and discharge, Neck: Negative for injury, pain, and swelling, Cardiovascular: Negative for chest pain, palpitations, and edema, Respiratory: Negative for shortness of breath, cough, wheezing, and pleuritic chest pain, Back: Negative for injury and pain, : Negative for injury, bleeding, discharge, and swelling, MS/Extremity: Negative for injury and deformity, Skin: Negative for injury, rash, and discoloration, Neuro: Negative for headache, weakness, numbness, tingling, and seizure, Psych: Negative for depression, anxiety, suicide ideation, homicidal ideation, and hallucinations, Allergy/Immunology: Negative for hives, rash, and allergies, Endocrine: Negative for neck swelling, polydipsia, polyuria, polyphagia, and marked weight changes, Hematologic/Lymphatic: Negative for swollen nodes, abnormal bleeding, and unusual bruising, 11:55 Abdomen/GI: Positive for abdominal pain, nausea and vomiting, abdominal cramps, Exam: 11:55 Constitutional: This is a well developed, well nourished patient who is awake, alert, melissa and in no acute distress. Head/Face: Normocephalic, atraumatic. Eyes: Pupils equal round and reactive to light, extra-ocular motions intact. Lids and lashes normal. Conjunctiva and sclera are non-icteric and not injected. Cornea within normal limits. Periorbital areas with no swelling, redness, or edema. ENT: Nares patent. No nasal discharge, no septal abnormalities noted. Tympanic membranes are normal and external auditory canals are clear. Oropharynx with no redness, swelling, or masses, exudates, or evidence of obstruction, uvula midline. Mucous membranes moist. Neck: Trachea midline, no thyromegaly or masses palpated, and no cervical lymphadenopathy. Supple, full range of motion without nuchal rigidity, or vertebral point tenderness. No Meningismus. Chest/axilla: Normal chest wall appearance and motion. Nontender with no deformity. No lesions are appreciated. Cardiovascular: Regular rate and rhythm with a normal S1 and S2. No gallops, murmurs, or rubs. Normal PMI, no JVD. No pulse deficits. Respiratory: Lungs have equal breath sounds bilaterally, clear to auscultation and percussion. No rales, rhonchi or wheezes noted. No increased work of breathing, no retractions or nasal flaring. Abdomen/GI: Soft, non-tender, with normal bowel sounds. No distension or tympany. No guarding or rebound. No evidence of tenderness throughout. Back: No spinal tenderness. No costovertebral tenderness. Full range of motion. Skin: Warm, dry with normal turgor. Normal color with no rashes, no lesions, and no evidence of cellulitis. MS/ Extremity: Pulses equal, no cyanosis. Neurovascular intact. Full, normal range of motion., bilateral aka Neuro: Awake and alert, GCS 15, oriented to person, place, time, and situation. Cranial nerves II-XII grossly intact. Motor strength 5/5 in all extremities. Sensory grossly intact. Cerebellar exam normal. Normal gait. Psych: Awake, alert, with orientation to person, place and time. Behavior, mood, and affect are within normal limits. 12:15 ECG was reviewed by the Attending Physician. [facility] Vital Signs: 09:48 Pulse 70; Resp 18; Temp 97.6(TE); Pulse Ox 100% on R/A; Weight 80.29 kg; Height 5 ft. 5 ld1 in. ; Pain 0/10; 09:54 BP 115 / 91; ld1 11:15 BP 143 / 97; Pulse 62; Resp 15; Pulse Ox 100% ; cm10 12:07 BP 107 / 64; Pulse 94; Resp 15; Pulse Ox 100% ; cm10 13:32 BP 124 / 64; Pulse 89; Resp 15; Pulse Ox 100% ; cm10 09:48 Body Mass Index 29.45 (80.29 kg, 165.1 cm) ld1 09:48 Pain Scale: Adult ld1 MDM: 09:41 Medical Screening Exam initiated melissa 11:57 Differential diagnosis: Nonspecific abd pain, gastritis, pancreatitis, viral melissa gastroenteritis, gastroenteritis, appendicitis. Data reviewed: vital signs, nurses notes, EMS record, lab test result(s), EKG, radiologic studies, plain films. Consideration of Admission/Observation Patient was admitted/placed on observation. Escalation of care including admission/observation considered. I considered the following discharge prescriptions or medication management in the emergency department Medications were administered in the Emergency Department. See MAR. Independent interpretation of the following test(s) in the Emergency Department EKG: See my EKG interpretation above. Test considered but Not performed: Ultrasound no abd usg. Historians other than the Patient: EMS: ems well informed. Care significantly affected by the following chronic conditions: neg , pot. Counseling: I had a detailed discussion with the patient and/or guardian regarding the historical points, exam findings, and any diagnostic results supporting the discharge/admit diagnosis, lab results, radiology results, the need for outpatient follow up, for definitive care, a family practitioner. 12/08 09:51 Order name: CBC with Diff; Complete Time: 11:45 [facility] 12/08 09:51 Order name: CMP; Complete Time: 11:45 [facility] 12/08 09:51 Order name: Lipase; Complete Time: 11:45 [facility] 12/08 09:51 Order name: Test, Urine; Complete Time: 11:45 [facility] 12/08 09:51 Order name: Urinalysis w/ reflexes; Complete Time: 11:45 [facility] 12/08 09:52 Order name: UDS; Complete Time: 11:45 [facility] 12/08 09:52 Order name: Asprin; Complete Time: 11:45 [facility] 12/08 09:52 Order name: Tylenol Level; Complete Time: 11:45 [facility] 12/08 09:52 Order name: ETOH Level; Complete Time: 11:45 [facility] 12/08 10:54 Order name: Chest Single View XRAY; Complete Time: 11:45 [facility] 12/08 10:54 Order name: EKG; Complete Time: 10:54 [facility] 12/08 09:51 Order name: IV Saline Lock; Complete Time: 09:52 [facility] 12/08 09:51 Order name: Labs collected and sent; Complete Time: 09:53 [facility] 12/08 10:54 Order name: EKG - Nurse/Tech; Complete Time: 12:14 [facility] EC:15 Rate is 79 beats/min. Rhythm is regular. QRS Omer is Normal. GA interval is normal. QRS melissa interval is normal. QT interval is prolonged at 481 msec. No Q waves. T waves are Normal. No ST changes noted. Clinical impression: NSR w/ Non-specific ST/T Changes. Administered Medications: 09:52 Drug: NS 0.9% IV 1000 ml IV at 1000 ml once; to be given as a bolus over 60 minutes ld1 Route: IV; Rate: 1000 ml; Site: right antecubital; 11:21 Follow up: Response: No adverse reaction; IV Status: Completed infusion; IV Intake: cm10 1000ml 09:52 Drug: Ondansetron IVP 8 mg IVP once; over 2 minutes Route: IVP; Site: right antecubital;ld1 11:21 Follow up: Response: No adverse reaction cm10 11:45 Drug: NS 0.9% IV 1000 ml IV at 1 bolus Per protocol; to be given as a bolus over 60 cm10 minutes Route: IV; Rate: 1 bolus; Site: right antecubital; 13:28 Follow up: Response: No adverse reaction; IV Status: Completed infusion; IV Intake: cm10 1000ml 11:45 Drug: Promethazine IVP 12.5 mg IVP once; in 1 liter ns bolus Route: IVP; Site: right cm10 antecubital; 13:27 Follow up: Response: No adverse reaction cm10 12:14 Drug: Famotidine IVP 20 mg IVP once; dilute with 10 mL 0.9% NaCl; give over 2 minutes cm10 Route: IVP; Site: right antecubital; 13:27 Follow up: Response: No adverse reaction cm10 12:59 Drug: Promethazine IVP 12.5 mg IVP once Route: IVP; Site: right antecubital; cm10 13:27 Follow up: Response: No adverse reaction cm10 13:27 Not Given (Duplicate Order): ns 0.9% 1000 ml IV at 1000 ml once; to be given as a bolus cm10 over 60 minutes Disposition Summary: 12/08/24 12:00 Discharge Ordered Notes: Location: Home [facility] Problem: new melissa Symptoms: have improved melissa Condition: Stable melissa Diagnosis - Vomiting melissa - Nausea with vomiting, unspecified melissa Followup: melissa - With: Private Physician - When: 2 - 3 days - Reason: Recheck today's complaints, Continuance of care, Re-evaluation by your physician Followup: melissa - With: Meag Carlin MD - When: 2 - 3 days - Reason: Recheck today's complaints, Re-evaluation by your physician Followup: melissa - With: James Calderon MD - When: 2 - 3 days - Reason: Recheck today's complaints, Re-evaluation by your physician Discharge Instructions: - Discharge Summary Sheet melissa - Nausea and Vomiting, Adult melissa - Nausea, Adult melissa - Nausea and Vomiting, Adult, [id number] melissa - Vomiting, Adult melissa Forms: - Medication Reconciliation Form melissa - Antibiotic Education melissa - Prescription Opioid Use [facility] - Patient Portal Instructions [facility] - Leadership Thank You Letter [facility] Prescriptions: - Pepcid 20 mg Oral tablet - take 1 tablet ORAL route every 12 hours for 21 days; 42 tablet; Refills: 0, [facility] Product Selection Permitted - promethazine 25 mg Oral Tablet - take 1 tablet ORAL route every 6 hours As needed; 20 tablet; Refills: 0, [facility] Product Selection Permitted - ondansetron 8 mg Oral Tablet,disintegrating - take 1 tablet ORAL route every 8 hours prn; 20 tablet; Refills: 0, Product [facility] Selection Permitted Signatures: Dispatcher [employer] Hugo Nesbitt MD MD cha Sims, Lauren, RN RN ld1 Bita Saleem RN RN cm10 Corrections: (The following items were deleted from the chart) 09:52 09:51 CBC+H.LAB.BRZ ordered. EDMS EDMS 09:51 COMPREHENSIVE METABOLIC PANEL+C.LAB.BRZ ordered. EDMS EDMS 09:51 LIPASE+C.LAB.BRZ ordered. EDMS EDMS 09:51 Test, Urine+UC.LAB.BRZ ordered. EDMS EDMS 09:51 Urinalysis+U.LAB.BRZ ordered. EDMS EDMS
--- NOTE | 2024-12-08 12:00 | ER ---
Nurse's Notes [facility] Name: Neelima Nix Age: 24 yrs Sex: Female : 2000 Arrival Date: 12/08/2024 Time: 09:29 Bed 16 Private MD: Diagnosis: Vomiting;Nausea with vomiting, unspecified Presentation: 12/08 09:48 Chief complaint: EMS states: Toned out to patient home for "possibly mixing too many ld1 medications." Pt reports to EMS only taking 1 doxycycline. Upon arrival to ER, pt N/V. Coronavirus screen: At this time, the client does not indicate any symptoms associated with coronavirus-19. Ebola Screen: No symptoms or risks identified at this time. Initial Sepsis Screen: Does the patient meet any 2 criteria? No. Patient's initial sepsis screen is negative. Does the patient have a suspected source of infection? No. Patient's initial sepsis screen is negative. Risk Assessment: Do you want to hurt yourself or someone else? Patient reports no desire to harm self or others. Onset of symptoms was December 08, 2024. 09:48 Method Of Arrival: EMS: [facility] ld1 09:48 Acuity: MACI 3 ld1 Triage Assessment: 09:48 General: Appears in no apparent distress. uncomfortable, Behavior is cooperative, ld1 drowsy. Pain: Complains of pain in chest and abdomen Pain does not radiate. Pain currently is 7 out of 10 on a pain scale. Quality of pain is described as throbbing, Pain began 1 hour ago. Is continuous. EENT: No signs and/or symptoms were reported regarding the EENT system. Neuro: Level of Consciousness is lethargic, Oriented to person. Cardiovascular: Capillary refill < 3 seconds Patient's skin is warm and dry. Rhythm is sinus rhythm. Respiratory: Airway is patent Respiratory effort is even, unlabored. GI: Abdomen is round non-distended, Reports lower abdominal pain, nausea, vomiting. : No signs and/or symptoms were reported regarding the genitourinary system. Derm: No signs and/or symptoms reported regarding the dermatologic system. Musculoskeletal: No signs and/or symptoms reported regarding the musculoskeletal system. 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 - Infectious Disease History:: Denies. - Social history:: Smoking status: Patient denies any tobacco usage or history of. Screenin:15 [facility] ED Fall Risk Assessment (Adult) History of falling in the last 3 months, cm10 including since admission No falls in past 3 months (0 pts) Confusion or Disorientation No (0 pts) Intoxicated or Sedated No (0 pts) Impaired Gait No (0 pts) Mobility Assist Device Used No (0 pt) Altered Elimination No (0 pt) Score/Fall Risk Level 0 - 2 = Low Risk Oriented to surroundings, Maintained a safe environment, Hourly rounding (assess needs \\T\\ fall precautionary measures) done. Abuse screen: Denies threats or abuse. Denies injuries from another. Nutritional screening: No deficits noted. Tuberculosis screening: No symptoms or risk factors identified. Assessment: 10:15 General: Appears in no apparent distress. uncomfortable, Behavior is calm, cooperative. cm10 Pain: Complains of pain in chest. Neuro: No deficits noted. Level of Consciousness is awake, alert, obeys commands, Oriented to person, place, time, situation, Appropriate for age. Respiratory: No deficits noted. Airway is patent Respiratory effort is even, unlabored, Respiratory pattern is regular, symmetrical. GI: Reports nausea, vomiting. Musculoskeletal: Range of motion: intact in all extremities. 12:00 Reassessment: Pt continues to report nausea, no vomiting noted. cm10 12:59 Reassessment: Pt continues to report that she is nauseous. Pt able to eat without cm10 vomiting. 13:27 Reassessment: Patient and/or family updated on plan of care and expected duration. Pain cm10 level reassessed. Patient is alert, oriented x 3, equal unlabored respirations, skin warm/dry/pink. Patient states feeling better. Patient states symptoms have improved. Vital Signs: 09:48 Pulse 70; Resp 18; Temp 97.6(TE); Pulse Ox 100% on R/A; Weight 80.29 kg; Height 5 ft. 5 ld1 in. ; Pain 0/10; 09:54 BP 115 / 91; ld1 11:15 BP 143 / 97; Pulse 62; Resp 15; Pulse Ox 100% ; cm10 12:07 BP 107 / 64; Pulse 94; Resp 15; Pulse Ox 100% ; cm10 13:32 BP 124 / 64; Pulse 89; Resp 15; Pulse Ox 100% ; cm10 09:48 Body Mass Index 29.45 (80.29 kg, 165.1 cm) ld1 09:48 Pain Scale: Adult ld1 ED Course: 09:38 Patient arrived in ED. ld1 09:41 Hugo Hyman MD is Attending Physician. [facility] 09:48 Arm band placed on right wrist. ld1 09:50 Triage completed. ld1 09:52 Maintain EMS IV. Dressing intact. Good blood return noted. Site clean \\T\\ dry. Gauge \\T\\ ld 1 site: 18G RAC. Flushed with 10 mL NS. 09:55 Bita Saleem, ISABEL is Primary Nurse. cm10 10:30 Patient has correct armband on for positive identification. Bed in low position. Call cm10 light in reach. Side rails up X2. Pulse ox on. NIBP on. 11:33 Chest Single View XRAY In Process Unspecified. EDOK 12:00 Mega Carlin MD is Referral Physician. [facility] 12:00 James Calderon MD is Referral Physician. [facility] 13:32 Provided Education on: follow-up instructions. 10 13:32 No provider procedures requiring assistance completed. IV discontinued, intact, cm10 bleeding controlled, No redness/swelling at site. Pressure dressing applied. Administered Medications: 09:52 Drug: NS 0.9% IV 1000 ml IV at 1000 ml once; to be given as a bolus over 60 minutes ld1 Route: IV; Rate: 1000 ml; Site: right antecubital; 11:21 Follow up: Response: No adverse reaction; IV Status: Completed infusion; IV Intake: cm10 1000ml 09:52 Drug: Ondansetron IVP 8 mg IVP once; over 2 minutes Route: IVP; Site: right antecubital;ld1 11:21 Follow up: Response: No adverse reaction cm10 11:45 Drug: NS 0.9% IV 1000 ml IV at 1 bolus Per protocol; to be given as a bolus over 60 cm10 minutes Route: IV; Rate: 1 bolus; Site: right antecubital; 13:28 Follow up: Response: No adverse reaction; IV Status: Completed infusion; IV Intake: cm10 1000ml 11:45 Drug: Promethazine IVP 12.5 mg IVP once; in 1 liter ns bolus Route: IVP; Site: right cm10 antecubital; 13:27 Follow up: Response: No adverse reaction cm10 12:14 Drug: Famotidine IVP 20 mg IVP once; dilute with 10 mL 0.9% NaCl; give over 2 minutes cm10 Route: IVP; Site: right antecubital; 13:27 Follow up: Response: No adverse reaction cm10 12:59 Drug: Promethazine IVP 12.5 mg IVP once Route: IVP; Site: right antecubital; cm10 13:27 Follow up: Response: No adverse reaction cm10 13:27 Not Given (Duplicate Order): ns 0.9% 1000 ml IV at 1000 ml once; to be given as a bolus cm10 over 60 minutes Medication: 13:33 VIS not applicable for this client. cm10 Intake: 11:21 IV: 1000ml; Total: 1000ml. cm10 13:28 IV: 1000ml; Total: 2000ml. cm10 Outcome: 12:00 Discharge ordered by MD. torres 13:32 Discharged to home ambulatory, with family, cm10 13:32 Condition: good 13:32 Discharge instructions given to patient, Instructed on discharge instructions, follow up and referral plans. medication usage, Demonstrated understanding of instructions, follow-up care, medications, Prescriptions given X 3, 13:37 Patient left the ED. cm10 Signatures: Dispatcher [employer] Hugo Nesbitt MD MD cha Sims, Lauren, RN RN se1 Bita Saleem RN RN cm10
[2024-12-08 13:41] VITALS: TEMP 97.6; O2SAT 100
[2024-12-08 13:47] VITALS: BP 124/64
--- NOTE | 2024-12-11 12:17 | EKG ---
Test Date: 2024-12-08 Test Time: 12:12:00 Carton Forming Machine Operator: PIYUSH MEASUREMENT RESULTS: Intervals: Rate: 79 [place]: 160 QRSD: 86 QT: 420 QTc: 481 Maceo: P: 74 [place]: 160 QRS: 87 T: 85 INTERPRETIVE STATEMENTS: Normal sinus rhythm Prolonged QT Abnormal ECG No previous ECG available for comparison Electronically Signed On 12-11-24 12:10:06 CDT by Jeff Schmitz
== END 2024-12-08 13:37 | disposition home or self-care (01) ==
LOC: ER 09:29
DX: R11.2 Nausea with vomiting, unspecified (principal)
CPT/HCPCS: 36415; 71045; 80053; 80143; 80179; 80307; 81003; 81025; 82077; 83690; 85025; 93005; 96361; 96374; 96375; 99284; J2405; J2550; J7030

== ENCOUNTER 2025-03-30 06:46 | Emergency (ER) | payer SELFPAY ==
[2025-03-30 07:26] LABS: Absolute Lymphocytes (CBC) 0.6 K/uL (0.7-4.9); Hematocrit 43.2 % (36.0-45.0); Hemoglobin 14.9 g/dL (12.0-15.0); MCH 31.5 pg (27.0-35.0); MCHC 34.4 g/dL (32.0-36.0); MCV 91.5 fL (80-100); MPV 8.2 fL (7.6-11.3); Nucleated RBC Absolute Count 0.0 (0-0); Nucleated Red Blood Cells % 0.1 % (0-0); RBC Red Blood Cell Count 4.73 M/uL (3.86-4.86); White Blood Count 10.20 thou/uL (4.3-10.9)
[2025-03-30] MEDS ORDERED: FAMOTIDINE 20 MG/2 ML VIAL IV ONE (07:31)
[2025-03-30] MEDS ORDERED: NA CHLORIDE 0.9% 1,000 ML ONE (07:31)
[2025-03-30] MEDS ORDERED: ONDANSETRON 4 MG/2 ML VIAL ONE (07:31)
[2025-03-30 07:44] LABS: ALT/SGPT 31.0 U/L (13-56); AST/SGOT 21.0 U/L (15-37); Albumin 4.5 g/dL (3.4-5.0); Albumin/Globulin Ratio 1.2 (1.1-1.8); Alkaline Phosphatase 73.0 U/L (45-117); Anion Gap 10.5 mEq/L (5.0-15.0); BUN Blood Urea Nitrogen 8.0 mg/dL (7-18); Globulin 3.9 g/dL (2.3-3.5); Glucose Level 142.0 mg/dL (74-106); Lipase 11.0 U/L (13-75); Potassium 3.5 mEq/L (3.5-5.1)
[2025-03-30 07:46] LABS: Sqamous Epithelial <5 /HPF (None Seen); Urine Culture Reflex Order NOT NEEDED; Urine Microscopic Reflex YN ORDER UMIC
--- NOTE | 2025-03-30 09:15 | EDPHYS ---
Physician Documentation [facility] Name: Neelima Nix Age: 24 yrs Sex: Female : 2000 Arrival Date: 03/30/2025 Time: 06:46 Bed 15 Private MD: ED Physician Hugo Hyman HPI: 03/30 09:10 This 24 yrs old Black Female presents to ER via Ambulatory with complaints of Abdominal melissa Pain, Nausea/Vomiting. 09:10 The patient presents to the emergency department with nausea, vomiting, diarrhea. melissa Onset: The symptoms/episode began/occurred 1 day(s) ago. Possible causes: unknown, bad food exposure. The symptoms are aggravated by nothing. The symptoms are alleviated by nothing. Associated signs and symptoms: The patient has no apparent associated signs or symptoms. Severity of symptoms: At their worst the symptoms were mild in the emergency department the symptoms are unchanged. The patient has not experienced similar symptoms in the past. 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 - Infectious Disease History:: Denies. - Social history:: Smoking status: Reported history of juuling and/or vaping. - Family history:: not pertinent. ROS: 09:10 Constitutional: Negative for fever, chills, and weight loss, Eyes: Negative for injury, melissa pain, redness, and discharge, ENT: Negative for injury, pain, and discharge, Neck: Negative for injury, pain, and swelling, Cardiovascular: Negative for chest pain, palpitations, and edema, Respiratory: Negative for shortness of breath, cough, wheezing, and pleuritic chest pain, Back: Negative for injury and pain, : Negative for injury, bleeding, discharge, and swelling, MS/Extremity: Negative for injury and deformity, Skin: Negative for injury, rash, and discoloration, Neuro: Negative for headache, weakness, numbness, tingling, and seizure, Psych: Negative for depression, anxiety, suicide ideation, homicidal ideation, and hallucinations, Allergy/Immunology: Negative for hives, rash, and allergies, Endocrine: Negative for neck swelling, polydipsia, polyuria, polyphagia, and marked weight changes, Hematologic/Lymphatic: Negative for swollen nodes, abnormal bleeding, and unusual bruising, 09:10 Abdomen/GI: Positive for abdominal pain, nausea and vomiting, diarrhea, abdominal cramps, Exam: 09:10 Constitutional: This is a well developed, well nourished patient who is awake, alert, melissa and in no acute distress. Head/Face: Normocephalic, atraumatic. Eyes: Pupils equal round and reactive to light, extra-ocular motions intact. Lids and lashes normal. Conjunctiva and sclera are non-icteric and not injected. Cornea within normal limits. Periorbital areas with no swelling, redness, or edema. ENT: Nares patent. No nasal discharge, no septal abnormalities noted. Tympanic membranes are normal and external auditory canals are clear. Oropharynx with no redness, swelling, or masses, exudates, or evidence of obstruction, uvula midline. Mucous membranes moist. Neck: Trachea midline, no thyromegaly or masses palpated, and no cervical lymphadenopathy. Supple, full range of motion without nuchal rigidity, or vertebral point tenderness. No Meningismus. Chest/axilla: Normal chest wall appearance and motion. Nontender with no deformity. No lesions are appreciated. Cardiovascular: Regular rate and rhythm with a normal S1 and S2. No gallops, murmurs, or rubs. Normal PMI, no JVD. No pulse deficits. Respiratory: Lungs have equal breath sounds bilaterally, clear to auscultation and percussion. No rales, rhonchi or wheezes noted. No increased work of breathing, no retractions or nasal flaring. Abdomen/GI: Soft, non-tender, with normal bowel sounds. No distension or tympany. No guarding or rebound. No evidence of tenderness throughout. Back: No spinal tenderness. No costovertebral tenderness. Full range of motion. Skin: Warm, dry with normal turgor. Normal color with no rashes, no lesions, and no evidence of cellulitis. MS/ Extremity: Pulses equal, no cyanosis. Neurovascular intact. Full, normal range of motion., bilateral aka Neuro: Awake and alert, GCS 15, oriented to person, place, time, and situation. Cranial nerves II-XII grossly intact. Motor strength 5/5 in all extremities. Sensory grossly intact. Cerebellar exam normal. Normal gait. Psych: Awake, alert, with orientation to person, place and time. Behavior, mood, and affect are within normal limits. 09:10 Abdomen/GI: Palpation: abdomen is soft and non-tender, in all quadrants, nontender, in all quadrants, Liver: no appreciated palpable abnormalities, Hernia: not appreciated, Vital Signs: 07:03 BP 144 / 86; Pulse 79; Resp 16 S; Temp 97.9(O); Pulse Ox 100% on R/A; Weight 74.84 kg kc6 (R); Height 5 ft. 6 in. (R); Pain 5/10; 08:26 BP 118 / 73; Pulse 65; Resp 18 S; Pulse Ox 100% on R/A; kc6 09:11 BP 127 / 78; Pulse 66; Resp 17 S; Pulse Ox 100% on R/A; kc6 07:03 Body Mass Index 26.63 (74.84 kg, 167.64 cm) 6 07:03 Pain Scale: Adult kc6 MDM: 07:10 Medical Screening Exam initiated melissa 09:12 Differential diagnosis: Nonspecific abd pain, gastritis, cholecystitis, pancreatitis, melissa appendicitis, diverticulitis, viral gastroenteritis, gastroenteritis. Data reviewed: vital signs, nurses notes, lab test result(s). Consideration of Admission/Observation Escalation of care including admission/observation considered. I considered the following discharge prescriptions or medication management in the emergency department Medications were administered in the Emergency Department. See MAR. Test considered but Not performed: CT: no ct abd pel. Historians other than the Patient: pt well informed. Care significantly affected by the following chronic conditions: none. 03/30 07:00 Order name: CBC with Diff rn 03/30 07:00 Order name: CMP; Complete Time: : rn 03/30 07:00 Order name: Lipase; Complete Time: : rn 03/30 07:00 Order name: Test, Urine; Complete Time: : rn 03/30 07:00 Order name: UA Rfx Bryan Cult if indicated; Complete Time: 09: rn 03/30 08:11 Order name: CBC Smear Scan EDMS 03/30 07:00 Order name: IV Saline Lock; Complete Time: 07:28 rn 03/30 07:00 Order name: Labs collected and sent; Complete Time: rn 03/30 09:09 Order name: PO challenge; Complete Time: 09:12 melissa Administered Medications: 07:49 Drug: NS 0.9% IV 1000 ml IV at 1000 ml once; to be given as a bolus over 60 minutes kc6 Route: IV; Rate: 1000 ml; Site: right antecubital; 09:12 Follow up: Response: No adverse reaction; IV Status: Completed infusion; IV Intake: kc6 1000ml 07:49 Drug: Ondansetron IVP 8 mg IVP once; over 2 minutes Route: IVP; Site: right antecubital;kc6 08:25 Follow up: Response: No adverse reaction; Nausea is decreased; Vomiting decreased kc6 07:49 Drug: Famotidine IVP 20 mg IVP once; dilute with 10 mL 0.9% NaCl; give over 2 minutes kc6 Route: IVP; Site: right antecubital; 08:25 Follow up: Response: No adverse reaction kc6 Disposition Summary: 03/30/25 09:14 Discharge Ordered Notes: [facility]: [facility] Symptoms: have improved melissa Condition: Stable melissa Diagnosis - Other specified noninfective gastroenteritis and colitis melissa - Vomiting melissa - Diarrhea, unspecified melissa Followup: melissa - With: Private Physician - When: 2 - 3 days - Reason: Recheck today's complaints, Continuance of care, Re-evaluation by your physician Discharge Instructions: - Discharge Summary Sheet [facility] - Food Choices to Help Relieve Diarrhea, Adult melissa - Diarrhea, Adult melissa - Viral Gastroenteritis, Adult melissa - Diarrhea, Adult, [id number] melissa - Vomiting, Adult melissa Forms: - Medication Reconciliation Form [facility] - Antibiotic Education [facility] - Prescription Opioid Use [facility] - Patient Portal Instructions [facility] - Leadership Thank You Letter [facility] - Work release form kc6 Prescriptions: - ondansetron 4 mg Oral Tablet,disintegrating - take 1 tablet ORAL route every 6 hours as needed for nausea and vomiting; 20 melissa tablet; Refills: 0, Product Selection Permitted Signatures: Dispatcher [employer] Hugo Nesbitt MD MD cha Nieto, Roman, MD MD rn Campbell, Kaitlyn, RN RN kc6
--- NOTE | 2025-03-30 09:15 | ER ---
Nurse's Notes [facility] Name: Neelima Nix Age: 24 yrs Sex: Female : 2000 Arrival Date: 03/30/2025 Time: 06:46 Bed 15 Private MD: Diagnosis: Other specified noninfective gastroenteritis and colitis;Vomiting;Diarrhea, unspecified Presentation: 03/30 07:03 Chief complaint: Patient states: lower abd pain, n/v, and CP since 2099. denies [facility] diarrhea. reports chills. Coronavirus screen: At this time, the client does not indicate any symptoms associated with coronavirus-19. Ebola Screen: No symptoms or risks identified at this time. Initial Sepsis Screen: Does the patient meet any 2 criteria? No. Patient's initial sepsis screen is negative. Does the patient have a suspected source of infection? No. Patient's initial sepsis screen is negative. Risk Assessment: Do you want to hurt yourself or someone else? Patient reports no desire to harm self or others. Onset of symptoms was March 30, 2025. 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 - Infectious Disease History:: Denies. - Social history:: Smoking status: Reported history of juuling and/or vaping. - Family history:: not pertinent. Screenin:06 [facility] ED Fall Risk Assessment (Adult) History of falling in the last 3 months, [facility] including since admission No falls in past 3 months (0 pts) Confusion or Disorientation No (0 pts) Intoxicated or Sedated No (0 pts) Impaired Gait No (0 pts) Mobility Assist Device Used No (0 pt) Altered Elimination No (0 pt) Score/Fall Risk Level 0 - 2 = Low Risk Oriented to surroundings. Abuse screen: Denies threats or abuse. Denies injuries from another. Nutritional screening: No deficits noted. Tuberculosis screening: No symptoms or risk factors identified. Assessment: 07:05 General: Appears in no apparent distress. uncomfortable, well groomed, well developed, kc6 Behavior is calm, cooperative, appropriate for age. Pain: Complains of pain in suprapubic area, right lower quadrant and left lower quadrant Pain does not radiate. Pain currently is 5 out of 10 on a pain scale. Neuro: Level of Consciousness is awake, alert, obeys commands, Oriented to person, place, time, situation, Appropriate for age. Cardiovascular: Reports chest pain, Capillary refill < 3 seconds. Respiratory: Airway is patent Trachea midline Respiratory effort is even, unlabored, Respiratory pattern is regular, symmetrical. GI: Abdomen is flat, non-distended, Bowel sounds present X 4 quads. Abd is soft X 4 quads Abdomen is tender to palpation in suprapubic area, right lower quadrant and left lower quadrant Reports lower abdominal pain, nausea, vomiting, Patient currently denies constipation, diarrhea. : No signs and/or symptoms were reported regarding the genitourinary system. EENT: No signs and/or symptoms were reported regarding the EENT system. Derm: No signs and/or symptoms reported regarding the dermatologic system. Skin is intact, is healthy with good turgor, Skin is pink, warm \T\ dry. Musculoskeletal: No signs and/or symptoms reported regarding the musculoskeletal system. Circulation, motion, and sensation intact. Range of motion: intact in all extremities. 08:05 Reassessment: Patient appears in no apparent distress at this time. No changes from kc6 previously documented assessment. Patient and/or family updated on plan of care and expected duration. Pain level reassessed. Patient is alert, oriented x 3, equal unlabored respirations, skin warm/dry/pink. 09:11 Reassessment: Patient appears in no apparent distress at this time. No changes from kc6 previously documented assessment. Patient and/or family updated on plan of care and expected duration. Pain level reassessed. Patient is alert, oriented x 3, equal unlabored respirations, skin warm/dry/pink. Vital Signs: 07:03 BP 144 / 86; Pulse 79; Resp 16 S; Temp 97.9(O); Pulse Ox 100% on R/A; Weight 74.84 kg kc6 (R); Height 5 ft. 6 in. (R); Pain 5/10; 08:26 BP 118 / 73; Pulse 65; Resp 18 S; Pulse Ox 100% on R/A; kc6 09:11 BP 127 / 78; Pulse 66; Resp 17 S; Pulse Ox 100% on R/A; kc6 07:03 Body Mass Index 26.63 (74.84 kg, 167.64 cm) kc6 07:03 Pain Scale: Adult kc6 ED Course: 06:48 Patient arrived in ED. [email or web address] 07:03 Ilene Mane, RN is Primary Nurse. kc6 07:05 Triage completed. kc6 07:05 Arm band placed on. kc6 07:06 Patient has correct armband on for positive identification. Bed in low position. Call kc6 light in reach. Side rails up X 1. Pulse ox on. NIBP on. Door closed. Noise minimized. Lights dimmed. Warm blanket given. Pillow given. Verbal reassurance given. 07:06 Patient maintains SpO2 saturation greater than 95% on room air. kc6 07:10 Hugo Hyman MD is Attending Physician. melissa 07:31 Inserted saline lock: 20 gauge in right antecubital area, using aseptic technique. af3 Blood collected. Flushed with 10 mL NS. 07:31 Initial lab(s) drawn, by me, sent to lab. af3 09:32 Diet: Patient given ice chips. Patient given water. Tolerated well. kc6 09:47 No provider procedures requiring assistance completed. IV discontinued, intact, kc6 bleeding controlled, No redness/swelling at site. Pressure dressing applied. Administered Medications: 07:49 Drug: NS 0.9% IV 1000 ml IV at 1000 ml once; to be given as a bolus over 60 minutes kc6 Route: IV; Rate: 1000 ml; Site: right antecubital; 09:12 Follow up: Response: No adverse reaction; IV Status: Completed infusion; IV Intake: kc6 1000ml 07:49 Drug: Ondansetron IVP 8 mg IVP once; over 2 minutes Route: IVP; Site: right antecubital;kc6 08:25 Follow up: Response: No adverse reaction; Nausea is decreased; Vomiting decreased kc6 07:49 Drug: Famotidine IVP 20 mg IVP once; dilute with 10 mL 0.9% NaCl; give over 2 minutes kc6 Route: IVP; Site: right antecubital; 08:25 Follow up: Response: No adverse reaction kc6 Medication: 09:48 VIS not applicable for this client. kc6 Intake: 09:12 IV: 1000ml; Total: 1000ml. kc6 Outcome: 09:14 Discharge ordered by . melissa 09:46 Discharged to home ambulatory, with friend, kapil 09:46 Condition: improved 09:46 Discharge instructions given to patient, Instructed on discharge instructions, follow up and referral plans. medication usage, Demonstrated understanding of instructions, follow-up care, medications, Prescriptions given X 1, 09:48 Patient left the ED. kc6 Signatures: Hugo Hyman MD MD cha Jeffries, Jennifer [email or web address] Ilene Mane, RN RN kc6 Isha Katz RN RN af3
[2025-03-30 10:27] LABS: White Blood Cell Scan OK (OK)
[2025-03-30 10:28] LABS: Anisocytosis 1+; Blood Morphology Comment NOTED (NOT SEEN)
[2025-03-30 11:23] VITALS: TEMP 97.9; O2SAT 100
[2025-03-30 11:26] VITALS: BP 127/78
== END 2025-03-30 09:48 | disposition home or self-care (01) ==
LOC: ER 06:46
DX: K52.89 Other specified noninfective gastroenteritis and colitis (principal); R19.7 Diarrhea, unspecified
CPT/HCPCS: 36415; 80053; 81001; 81025; 83690; 85025; 96361; 96374; 96375; 99284; J2405; J7030